=== PATIENT | male | born 1945 | race Caucasian/White ===

== ENCOUNTER 2017-11-02 15:10 | Inpatient (IN) | payer MEDICARE, BC ==
[~2017-11-02] VITALS: Ht 177.8 cm; Wt 104.8 kg
[~2017-11-02 15:10] MED LIST: ARIP10 PO; ATOR40TA PO; CEPH500 PO; GLIM4 PO; HYDACE5 PO; Janumet 50-1,01 EACH PO; LISI20 PO; Lasix40 MG PO; MAGNESIUM400 MG PO; MELO7.5 PO; METO50 PO; NIFE90ER PO; POTCHL20ER PO; SERT100 PO; TRIHYD253B PO; XARELTO20 MG PO
[2017-11-02 15:59] LABS: BASOPHILS ABSOLUTE AUTO 0.07 K/mm3 (0.00-0.23); BASOPHILS PERCENT AUTO 1 % (0-2); EOSINOPHILS ABSOLUTE AUTO 0.12 K/mm3 (0.00-0.68); EOSINOPHILS PERCENT AUTO 1 % (0-6); Hematocrit 40.1 % (37.0-53.0); Hemoglobin 12.9 g/dL (13.5-17.5); IMMATURE GRAN ABSOLUTE AUTO 0.02 K/mm3 (0.00-0.10); IMMATURE GRAN PERCENT AUTO 0 % (0-1); LYMPHOCYTES ABSOLUTE AUTO 1.04 K/mm3 (0.84-5.20); LYMPHOCYTES PERCENT AUTO 12 % (21-46); MONOCYTES ABSOLUTE AUTO 0.56 K/mm3 (0.16-1.47); MONOCYTES PERCENT AUTO 6 % (4-13); Mean Corpuscular HGB 29.3 pg (26.0-34.0); Mean Corpuscular HGB Conc 32.2 g/dL (31.5-36.5); Mean Corpuscular Volume 91 fL (80-100); NEUTROPHILS ABSOLUTE AUTO 7.12 K/mm3 (1.96-9.15); NEUTROPHILS PERCENT AUTO 80 % (41-73); Platelet Count 327 K/mm3 (150-400); RDW Coefficient Variation 14.4 % (11.7-14.2); RDW Standard Deviation 47.9 fL (35.1-46.3); White Blood Cell Count 8.93 K/mm3 (4.00-11.30)
[2017-11-02 16:20] LABS: Alanine Aminotransfer (ALT/SGP 44 U/L (12-78); Albumin, Blood 3.3 g/dL (3.4-5.0); Albumin/Globulin Ratio 0.8 (0.8-1.8); Alk Phos 128 U/L (50-136); Anion Gap 10 mmol/L (6-16); Aspartate Aminotrans (AST/SGOT 35 U/L (12-37); Bilirubin, Total 0.6 mg/dL (0.1-1.0); Blood Urea Nitrogen 18 mg/dL (8-24); Bun/Creatinine Ratio 16.4 (12.0-20.0); CO2, Blood 26 mmol/L (21-32); Calcium, Blood 8.6 mg/dL (8.5-10.1); Chloride, Blood 102 mmol/L (98-108); Globulin, Blood 4.3 g/dL (2.2-4.0); Glomerular Filtration Rate >60 (60-); Glucose, Blood 171 mg/dL (70-99); Potassium, Blood 3.4 mmol/L (3.5-5.5); Sodium, Blood 138 mmol/L (136-145); Total Protein, Blood 7.6 g/dL (6.4-8.2); Troponin I 0.027 ng/mL (0.000-0.040)
[2017-11-03 00:56] LABS: Troponin I 0.031 ng/mL (0.000-0.040)
[2017-11-03 01:19] LABS: CPK Creatine Kinase 38 U/L (39-308); Creatine Kinase MB <0.5 ng/mL (0.0-3.6); Creatine Kinase MB Index Unable to Calculate (0.0-4.0); Thyroid Stimulating Hormone 0.949 uIU/mL (0.360-4.800)
[2017-11-03 06:55] LABS: BASOPHILS ABSOLUTE AUTO 0.09 K/mm3 (0.00-0.23); BASOPHILS PERCENT AUTO 1 % (0-2); EOSINOPHILS ABSOLUTE AUTO 0.16 K/mm3 (0.00-0.68); EOSINOPHILS PERCENT AUTO 2 % (0-6); Hematocrit 37.2 % (37.0-53.0); Hemoglobin 11.9 g/dL (13.5-17.5); IMMATURE GRAN ABSOLUTE AUTO 0.02 K/mm3 (0.00-0.10); IMMATURE GRAN PERCENT AUTO 0 % (0-1); LYMPHOCYTES ABSOLUTE AUTO 1.11 K/mm3 (0.84-5.20); LYMPHOCYTES PERCENT AUTO 15 % (21-46); MONOCYTES ABSOLUTE AUTO 0.64 K/mm3 (0.16-1.47); MONOCYTES PERCENT AUTO 9 % (4-13); Mean Corpuscular HGB 29.5 pg (26.0-34.0); Mean Corpuscular Volume 92 fL (80-100); Mean Platelet Volume 10.9 fL (9.1-12.4); NEUTROPHILS ABSOLUTE AUTO 5.35 K/mm3 (1.96-9.15); NEUTROPHILS PERCENT AUTO 73 % (41-73); Platelet Count 297 K/mm3 (150-400); RDW Coefficient Variation 14.6 % (11.7-14.2); RDW Standard Deviation 49.2 fL (35.1-46.3); Red Blood Cell Count 4.03 M/mm3 (4.30-5.90); White Blood Cell Count 7.37 K/mm3 (4.00-11.30)
[2017-11-03 07:08] LABS: Albumin, Blood 3.1 g/dL (3.4-5.0); Anion Gap 8 mmol/L (6-16); Blood Urea Nitrogen 14 mg/dL (8-24); Bun/Creatinine Ratio 17.9 (12.0-20.0); CO2, Blood 27 mmol/L (21-32); Calcium, Blood 8.2 mg/dL (8.5-10.1); Chloride, Blood 107 mmol/L (98-108); Creatinine, Blood 0.78 mg/dL (0.60-1.20); Glomerular Filtration Rate >60 (60-); Glucose, Blood 119 mg/dL (70-99); Magnesium, Blood 1.9 mg/dL (1.6-2.4); Phosphorus, Blood 3.3 mg/dL (2.5-4.9); Potassium, Blood 3.3 mmol/L (3.5-5.5); Sodium, Blood 142 mmol/L (136-145)
[2017-11-03 07:13] LABS: CPK Creatine Kinase 35 U/L (39-308); Troponin I 0.028 ng/mL (0.000-0.040)
[2017-11-03 07:23] LABS: Creatine Kinase MB <0.5 ng/mL (0.0-3.6); Creatine Kinase MB Index Unable to Calculate (0.0-4.0)
[2017-11-04 05:25] LABS: Anion Gap 9 mmol/L (6-16); Blood Urea Nitrogen 14 mg/dL (8-24); Bun/Creatinine Ratio 17.3 (12.0-20.0); CO2, Blood 27 mmol/L (21-32); Calcium, Blood 8.4 mg/dL (8.5-10.1); Chloride, Blood 107 mmol/L (98-108); Creatinine, Blood 0.81 mg/dL (0.60-1.20); Glomerular Filtration Rate >60 (60-); Glucose, Blood 109 mg/dL (70-99); Potassium, Blood 3.4 mmol/L (3.5-5.5); Sodium, Blood 143 mmol/L (136-145)
[2017-11-05 06:25] LABS: Anion Gap 9 mmol/L (6-16); Blood Urea Nitrogen 18 mg/dL (8-24); Bun/Creatinine Ratio 21.1 (12.0-20.0); CO2, Blood 25 mmol/L (21-32); Calcium, Blood 8.6 mg/dL (8.5-10.1); Chloride, Blood 108 mmol/L (98-108); Creatinine, Blood 0.85 mg/dL (0.60-1.20); Glomerular Filtration Rate >60 (60-); Glucose, Blood 105 mg/dL (70-99); Potassium, Blood 3.5 mmol/L (3.5-5.5); Sodium, Blood 142 mmol/L (136-145)
[2017-11-05] MEDS ORDERED: DILT180ER PO (11:13)
[2017-11-05] MEDS ORDERED: DILT30 PO (11:14)
[2017-11-05] MEDS ORDERED: DILT180 PO (11:14)
[2018-08-11] MEDS ORDERED: GLIM4 PO (23:55)
[2018-08-11] MEDS ORDERED: PROC5 PO (23:56)
[2018-08-11] MEDS ORDERED: Abilify2 MG (23:57)
[2018-08-11] MEDS ORDERED: SPIR50 PO (23:58)
[2018-08-11] MEDS ORDERED: INSULANPEN (23:59)
== END 2017-11-05 13:24 | disposition home or self-care (01) | DRG 310 ==
LOC: ER 15:10 → ERHOLD 19:01 → ICUE 19:01 → MEDS 22:35 → ICUE 22:37 → MEDS 11-03 16:05 → ENPENDDIS 11-05 10:14 → MEDS 11-05 13:24
PROVIDERS: Emergency Medicine; Internal Medicine
DX: I48.0 Paroxysmal atrial fibrillation (principal); E11.9 Type 2 diabetes mellitus without complications; I10 Essential (primary) hypertension; F32.9 Major depressive disorder, single episode, unspecified; E78.5 Hyperlipidemia, unspecified; G47.33 Obstructive sleep apnea (adult) (pediatric); Z66 Do not resuscitate; E66.9 Obesity, unspecified; Z68.33 Body mass index [BMI] 33.0-33.9, adult; R60.9 Edema, unspecified; Z99.89 Dependence on other enabling machines and devices; Z79.01 Long term (current) use of anticoagulants; Z79.84 Long term (current) use of oral hypoglycemic drugs; Z79.899 Other long term (current) drug therapy; Z86.73 Personal history of transient ischemic attack (TIA), and cerebral infarction without residual deficits; Z87.891 Personal history of nicotine dependence
CPT/HCPCS: 36415; 71046; 80048; 80053; 80069; 82550; 82553; 82947; 83735; 84443; 84484; 85025; 93005; 93010; 93308; 93321; 96365; 96366; 96376; 99285

== ENCOUNTER → 2017-12-22 | Outpatient (CLI) | payer MEDICARE, BC ==
[~2017-12-22] MED LIST changes: +AMLO10 PO; +ASPI81CH PO; +ATEN50 PO; +Abilify2 MG; +Abilify5 MG PO; +Acetaminophen325 M1 PO; +Amiodarone HCl200 MG; +BUPR100ER PO; +BUPR75 PO; +CLON.3 PO; +CLON.3TP TOP; +CLON.5 PO; +Cardizem CD 24240 MG PO; +DILT120ERA PO; +DILT180 PO; +DILT180ER PO; +DILT30 PO; +DOCU100 PO; +ERGO400 PO; +FINA5 PO; +FURO20 PO; +HYDRA25 PO; +INSULANPEN; +JOINT HEALTH T1 EACH PO; +Janumet 50-1,01 EACH; +MAGOXI400; +MECL12.5 PO; +METO50ER PO; +Melatonin5 M1 PO; +Metformin HCl500 MG PO; +Milk Of Ma400 MG/5 M PO; +OMEPRAZOLE MAGN20 MG PO; +ONDA4 MM; +ONDA4ODT SL; +POTA20PAC; +POTCHL10ER PO; +PROC5 PO; +SCOPOLAMINE1 EACH TD; +SENN187 PO; +SERT50 PO; +SPIR50 PO; +TAMS.4ER PO; +TOCO1000 PO; +TORSE20 PO; +VENL150ER PO
== END | disposition home or self-care (01) ==
LOC: PLD 08:16 → LAB SHORT 08:16
DX: D48.5 Neoplasm of uncertain behavior of skin (principal)
CPT/HCPCS: 88305; 88312

== ENCOUNTER 2018-01-06 13:03 | Inpatient (IN) | payer MEDICARE, BC ==
[~2018-01-06] VITALS: Ht 180.3 cm; Wt 103.0 kg
[~2018-01-06 13:03] MED LIST changes: -AMLO10 PO; -ASPI81CH PO; -ATEN50 PO; -Abilify2 MG; -Abilify5 MG PO; -Acetaminophen325 M1 PO; -Amiodarone HCl200 MG; -BUPR100ER PO; -BUPR75 PO; -CLON.3 PO; -CLON.3TP TOP; -CLON.5 PO; -Cardizem CD 24240 MG PO; -DILT120ERA PO; -DOCU100 PO; -ERGO400 PO; -FINA5 PO; -FURO20 PO; -HYDRA25 PO; -INSULANPEN; -JOINT HEALTH T1 EACH PO; -Janumet 50-1,01 EACH; -MAGOXI400; -MECL12.5 PO; -METO50ER PO; -Melatonin5 M1 PO; -Metformin HCl500 MG PO; -Milk Of Ma400 MG/5 M PO; -OMEPRAZOLE MAGN20 MG PO; -ONDA4 MM; -ONDA4ODT SL; -POTA20PAC; -POTCHL10ER PO; -PROC5 PO; -SCOPOLAMINE1 EACH TD; -SENN187 PO; -SERT50 PO; -SPIR50 PO; -TAMS.4ER PO; -TOCO1000 PO; -TORSE20 PO; -VENL150ER PO
[2018-01-06 13:44] LABS: BASOPHILS ABSOLUTE AUTO 0.07 K/mm3 (0.00-0.23); BASOPHILS PERCENT AUTO 1 % (0-2); EOSINOPHILS ABSOLUTE AUTO 0.16 K/mm3 (0.00-0.68); EOSINOPHILS PERCENT AUTO 2 % (0-6); Hematocrit 37.1 % (37.0-53.0); Hemoglobin 11.6 g/dL (13.5-17.5); IMMATURE GRAN ABSOLUTE AUTO 0.03 K/mm3 (0.00-0.10); IMMATURE GRAN PERCENT AUTO 0 % (0-1); LYMPHOCYTES ABSOLUTE AUTO 0.65 K/mm3 (0.84-5.20); LYMPHOCYTES PERCENT AUTO 9 % (21-46); MONOCYTES ABSOLUTE AUTO 0.54 K/mm3 (0.16-1.47); MONOCYTES PERCENT AUTO 7 % (4-13); Mean Corpuscular HGB 28.6 pg (26.0-34.0); Mean Corpuscular HGB Conc 31.3 g/dL (31.5-36.5); Mean Corpuscular Volume 91 fL (80-100); NEUTROPHILS ABSOLUTE AUTO 6.04 K/mm3 (1.96-9.15); NEUTROPHILS PERCENT AUTO 81 % (41-73); Platelet Count 257 K/mm3 (150-400); RDW Coefficient Variation 15.3 % (11.7-14.2); RDW Standard Deviation 50.6 fL (35.1-46.3); Red Blood Cell Count 4.06 M/mm3 (4.30-5.90); White Blood Cell Count 7.49 K/mm3 (4.00-11.30)
[2018-01-06 13:55] LABS: Alanine Aminotransfer (ALT/SGP 56 U/L (12-78); Albumin, Blood 3.3 g/dL (3.4-5.0); Albumin/Globulin Ratio 0.7 (0.8-1.8); Alk Phos 107 U/L (50-136); Anion Gap 12 mmol/L (6-16); Aspartate Aminotrans (AST/SGOT 36 U/L (12-37); Bilirubin, Total 0.8 mg/dL (0.1-1.0); Blood Urea Nitrogen 21 mg/dL (8-24); Bun/Creatinine Ratio 20.4 (12.0-20.0); CO2, Blood 25 mmol/L (21-32); Calcium, Blood 9.1 mg/dL (8.5-10.1); Chloride, Blood 104 mmol/L (98-108); Creatinine, Blood 1.03 mg/dL (0.60-1.20); Globulin, Blood 4.7 g/dL (2.2-4.0); Glomerular Filtration Rate >60 (60-); Glucose, Blood 200 mg/dL (70-99); Potassium, Blood 3.6 mmol/L (3.5-5.5); Sodium, Blood 141 mmol/L (136-145)
[2018-01-06] MEDS ORDERED: TOCO1000 PO (14:00)
[2018-01-06] MEDS ORDERED: OMEPRAZOLE MAGN20 MG PO (14:00)
[2018-01-06] MEDS ORDERED: Cardizem CD 24240 MG PO (14:00)
[2018-01-06] MEDS ORDERED: ERGO400 PO (14:00)
[2018-01-06] MEDS ORDERED: TORSE20 PO (14:01)
[2018-01-06] MEDS ORDERED: Abilify5 MG PO (14:01)
[2018-01-06 14:29] LABS: Troponin I <0.015 ng/mL (0.000-0.040)
[2018-01-06] MEDS ORDERED: JOINT HEALTH T1 EACH PO (17:01)
[2018-01-07 04:32] LABS: Anion Gap 8 mmol/L (6-16); Blood Urea Nitrogen 16 mg/dL (8-24); Bun/Creatinine Ratio 17.9 (12.0-20.0); CO2, Blood 28 mmol/L (21-32); Calcium, Blood 8.4 mg/dL (8.5-10.1); Chloride, Blood 103 mmol/L (98-108); Creatinine, Blood 0.89 mg/dL (0.60-1.20); Glomerular Filtration Rate >60 (60-); Glucose, Blood 84 mg/dL (70-99); Sodium, Blood 139 mmol/L (136-145)
[2018-01-08 04:38] LABS: Anion Gap 8 mmol/L (6-16); Blood Urea Nitrogen 16 mg/dL (8-24); Bun/Creatinine Ratio 18.3 (12.0-20.0); CO2, Blood 29 mmol/L (21-32); Calcium, Blood 8.5 mg/dL (8.5-10.1); Chloride, Blood 103 mmol/L (98-108); Creatinine, Blood 0.87 mg/dL (0.60-1.20); Glomerular Filtration Rate >60 (60-); Glucose, Blood 80 mg/dL (70-99); Magnesium, Blood 2.1 mg/dL (1.6-2.4); Potassium, Blood 3.2 mmol/L (3.5-5.5); Sodium, Blood 140 mmol/L (136-145)
[2018-01-08] MEDS ORDERED: METO50 PO (09:33)
[2018-08-11] MEDS ORDERED: GLIM4 PO (23:55)
[2018-08-11] MEDS ORDERED: PROC5 PO (23:56)
[2018-08-11] MEDS ORDERED: Abilify2 MG (23:57)
[2018-08-11] MEDS ORDERED: SPIR50 PO (23:58)
[2018-08-11] MEDS ORDERED: INSULANPEN (23:59)
== END 2018-01-08 09:51 | disposition home or self-care (01) | DRG 308 ==
LOC: ER 13:03 → PCU 15:12
PROVIDERS: Emergency Medicine; Hospitalist
DX: I48.91 Unspecified atrial fibrillation (principal); I50.23 Acute on chronic systolic (congestive) heart failure; I11.0 Hypertensive heart disease with heart failure; E11.9 Type 2 diabetes mellitus without complications; Z79.01 Long term (current) use of anticoagulants; F41.8 Other specified anxiety disorders; E78.5 Hyperlipidemia, unspecified
CPT/HCPCS: 36415; 71046; 80048; 80053; 82947; 83735; 83880; 84484; 85025; 93005; 93010; 94762; 96365; 96375; 96376; 99285; A9270; J1940

== ENCOUNTER 2018-01-27 17:06 | Emergency (ER) | payer MEDICARE, BC ==
[~2018-01-27] VITALS: Ht 177.8 cm; Wt 95.2 kg
[~2018-01-27 17:06] MED LIST changes: +Abilify5 MG PO; +Cardizem CD 24240 MG PO; +ERGO400 PO; +JOINT HEALTH T1 EACH PO; +OMEPRAZOLE MAGN20 MG PO; +TOCO1000 PO; +TORSE20 PO; +XARELTO15 MG PO; -XARELTO20 MG PO
[2018-01-27 18:04] LABS: Alanine Aminotransfer (ALT/SGP 26 U/L (12-78); Albumin, Blood 3.2 g/dL (3.4-5.0); Albumin/Globulin Ratio 0.7 (0.8-1.8); Alk Phos 95 U/L (50-136); Anion Gap 14 mmol/L (6-16); Aspartate Aminotrans (AST/SGOT 20 U/L (12-37); Bilirubin, Total 0.4 mg/dL (0.1-1.0); Blood Urea Nitrogen 20 mg/dL (8-24); Bun/Creatinine Ratio 21.6 (12.0-20.0); CO2, Blood 23 mmol/L (21-32); Calcium, Blood 8.5 mg/dL (8.5-10.1); Chloride, Blood 104 mmol/L (98-108); Creatinine, Blood 0.92 mg/dL (0.60-1.20); Globulin, Blood 4.7 g/dL (2.2-4.0); Glomerular Filtration Rate >60 (60-); Glucose, Blood 259 mg/dL (70-99); Potassium, Blood 3.5 mmol/L (3.5-5.5); Sodium, Blood 141 mmol/L (136-145); Total Protein, Blood 7.9 g/dL (6.4-8.2); Troponin I <0.015 ng/mL (0.000-0.040)
[2018-01-27] MEDS ORDERED: FURO20 PO (19:50)
[2018-01-27] MEDS ORDERED: ATEN50 PO (19:52)
== END 2018-01-27 23:28 | disposition home or self-care (01) ==
LOC: ER 17:06
PROVIDERS: Emergency Medicine
DX: I48.92 Unspecified atrial flutter (principal); Z91.048 Other nonmedicinal substance allergy status; Z79.899 Other long term (current) drug therapy; E11.9 Type 2 diabetes mellitus without complications; I48.91 Unspecified atrial fibrillation; Z86.73 Personal history of transient ischemic attack (TIA), and cerebral infarction without residual deficits; Z87.891 Personal history of nicotine dependence
CPT/HCPCS: 36415; 71046; 80053; 83880; 84484; 93005; 93010; 96365; 96366; 99283; J2001; J3480

== ENCOUNTER 2018-04-24 11:47 | Inpatient (IN) | payer MEDICARE, BC ==
[~2018-04-24] VITALS: Ht 180.3 cm; Wt 84.8 kg
[~2018-04-24 11:47] MED LIST changes: +ATEN50 PO; +FURO20 PO; -XARELTO15 MG PO; +XARELTO20 MG PO
[2018-04-24 12:34] LABS: BASOPHILS PERCENT AUTO 1 % (0-2); EOSINOPHILS ABSOLUTE AUTO 0.15 K/mm3 (0.00-0.68); EOSINOPHILS PERCENT AUTO 1 % (0-6); Hematocrit 36.2 % (37.0-53.0); Hemoglobin 11.4 g/dL (13.5-17.5); IMMATURE GRAN ABSOLUTE AUTO 0.04 K/mm3 (0.00-0.10); IMMATURE GRAN PERCENT AUTO 0 % (0-1); LYMPHOCYTES ABSOLUTE AUTO 0.47 K/mm3 (0.84-5.20); LYMPHOCYTES PERCENT AUTO 5 % (21-46); MONOCYTES ABSOLUTE AUTO 0.47 K/mm3 (0.16-1.47); MONOCYTES PERCENT AUTO 5 % (4-13); Mean Corpuscular HGB 28.2 pg (26.0-34.0); Mean Corpuscular HGB Conc 31.5 g/dL (31.5-36.5); Mean Corpuscular Volume 90 fL (80-100); Mean Platelet Volume 11.7 fL (9.1-12.4); NEUTROPHILS ABSOLUTE AUTO 9.24 K/mm3 (1.96-9.15); NEUTROPHILS PERCENT AUTO 88 % (41-73); Platelet Count 289 K/mm3 (150-400); RDW Coefficient Variation 15.9 % (11.7-14.2); RDW Standard Deviation 52.2 fL (35.1-46.3); Red Blood Cell Count 4.04 M/mm3 (4.30-5.90); White Blood Cell Count 10.47 K/mm3 (4.00-11.30)
[2018-04-24 12:47] LABS: Alanine Aminotransfer (ALT/SGP 82 U/L (12-78); Albumin, Blood 3.4 g/dL (3.4-5.0); Albumin/Globulin Ratio 0.8 (0.8-1.8); Alk Phos 110 U/L (50-136); Anion Gap 10 mmol/L (6-16); Aspartate Aminotrans (AST/SGOT 49 U/L (12-37); Bilirubin, Total 1.3 mg/dL (0.1-1.0); Blood Urea Nitrogen 19 mg/dL (8-24); Bun/Creatinine Ratio 16.2 (12.0-20.0); CO2, Blood 27 mmol/L (21-32); Calcium, Blood 8.5 mg/dL (8.5-10.1); Chloride, Blood 106 mmol/L (98-108); Creatinine, Blood 1.17 mg/dL (0.60-1.20); Globulin, Blood 4.4 g/dL (2.2-4.0); Glomerular Filtration Rate >60 (60-); Glucose, Blood 207 mg/dL (70-99); Potassium, Blood 3.7 mmol/L (3.5-5.5); Sodium, Blood 143 mmol/L (136-145); Total Protein, Blood 7.8 g/dL (6.4-8.2); Troponin I 0.041 ng/mL (0.000-0.040)
[2018-04-24] MEDS ORDERED: BUPR75 PO (13:12)
[2018-04-24] MEDS ORDERED: POTCHL10ER PO (13:13)
[2018-04-24] MEDS ORDERED: SERT50 PO (13:13)
[2018-04-24] MEDS ORDERED: MAGOXI400 (13:13)
[2018-04-24] MEDS ORDERED: POTA20PAC (13:13)
[2018-04-24] MEDS ORDERED: Amiodarone HCl200 MG (13:14)
[2018-04-25 01:35] LABS: Anion Gap 12 mmol/L (6-16); Blood Urea Nitrogen 20 mg/dL (8-24); Bun/Creatinine Ratio 18.5 (12.0-20.0); CO2, Blood 27 mmol/L (21-32); Calcium, Blood 8.8 mg/dL (8.5-10.1); Chloride, Blood 102 mmol/L (98-108); Creatinine, Blood 1.08 mg/dL (0.60-1.20); Glomerular Filtration Rate >60 (60-); Glucose, Blood 164 mg/dL (70-99); Potassium, Blood 3.3 mmol/L (3.5-5.5); Sodium, Blood 141 mmol/L (136-145)
[2018-04-25 10:13] LABS: Influenza A Negative (NEGATIVE); Influenza B Negative (NEGATIVE)
[2018-04-25 15:36] LABS: CHOL/HDL RATIO 5.1; Cholesterol 177 mg/dL (50-200); HDL Cholesterol 35 mg/dL (>39); LDL/HDL RATIO 3.5; Low Density Lipoprotein Chol 123 mg/dL (0-110); Triglycerides 96 mg/dL (30-160); Very Low Density Lipoprot Chol 19 mg/dL (6-32)
[2018-04-26 04:12] LABS: Magnesium, Blood 2.1 mg/dL (1.6-2.4)
[2018-04-26 04:13] LABS: Anion Gap 12 mmol/L (6-16); Blood Urea Nitrogen 17 mg/dL (8-24); Bun/Creatinine Ratio 17.9 (12.0-20.0); CO2, Blood 26 mmol/L (21-32); Chloride, Blood 101 mmol/L (98-108); Creatinine, Blood 0.95 mg/dL (0.60-1.20); Glomerular Filtration Rate >60 (60-); Glucose, Blood 175 mg/dL (70-99); Potassium, Blood 3.4 mmol/L (3.5-5.5); Sodium, Blood 139 mmol/L (136-145)
[2018-04-27 04:44] LABS: Anion Gap 11 mmol/L (6-16); Blood Urea Nitrogen 20 mg/dL (8-24); Bun/Creatinine Ratio 20.7 (12.0-20.0); CO2, Blood 27 mmol/L (21-32); Calcium, Blood 9.1 mg/dL (8.5-10.1); Chloride, Blood 101 mmol/L (98-108); Creatinine, Blood 0.97 mg/dL (0.60-1.20); Glomerular Filtration Rate >60 (60-); Glucose, Blood 177 mg/dL (70-99); Potassium, Blood 3.3 mmol/L (3.5-5.5); Sodium, Blood 139 mmol/L (136-145)
[2018-04-28 09:02] LABS: Anion Gap 11 mmol/L (6-16); Blood Urea Nitrogen 28 mg/dL (8-24); Bun/Creatinine Ratio 25.5 (12.0-20.0); CO2, Blood 28 mmol/L (21-32); Calcium, Blood 10.1 mg/dL (8.5-10.1); Chloride, Blood 99 mmol/L (98-108); Glomerular Filtration Rate >60 (60-); Glucose, Blood 186 mg/dL (70-99); Potassium, Blood 3.8 mmol/L (3.5-5.5); Sodium, Blood 138 mmol/L (136-145)
[2018-04-30 05:43] LABS: Anion Gap 8 mmol/L (6-16); Blood Urea Nitrogen 26 mg/dL (8-24); Bun/Creatinine Ratio 21.1 (12.0-20.0); CO2, Blood 28 mmol/L (21-32); Calcium, Blood 8.8 mg/dL (8.5-10.1); Chloride, Blood 102 mmol/L (98-108); Creatinine, Blood 1.23 mg/dL (0.60-1.20); Glomerular Filtration Rate >60 (60-); Glucose, Blood 183 mg/dL (70-99); Magnesium, Blood 1.9 mg/dL (1.6-2.4); Potassium, Blood 3.6 mmol/L (3.5-5.5); Sodium, Blood 138 mmol/L (136-145)
[2018-05-01 05:04] LABS: BASOPHILS ABSOLUTE AUTO 0.09 K/mm3 (0.00-0.23); BASOPHILS PERCENT AUTO 1 % (0-2); EOSINOPHILS ABSOLUTE AUTO 0.23 K/mm3 (0.00-0.68); EOSINOPHILS PERCENT AUTO 3 % (0-6); Hematocrit 37.7 % (37.0-53.0); IMMATURE GRAN ABSOLUTE AUTO 0.05 K/mm3 (0.00-0.10); IMMATURE GRAN PERCENT AUTO 1 % (0-1); LYMPHOCYTES ABSOLUTE AUTO 0.98 K/mm3 (0.84-5.20); LYMPHOCYTES PERCENT AUTO 11 % (21-46); MONOCYTES ABSOLUTE AUTO 0.76 K/mm3 (0.16-1.47); MONOCYTES PERCENT AUTO 8 % (4-13); Mean Corpuscular HGB 27.5 pg (26.0-34.0); Mean Corpuscular HGB Conc 31.8 g/dL (31.5-36.5); Mean Platelet Volume 12.1 fL (9.1-12.4); NEUTROPHILS ABSOLUTE AUTO 7.24 K/mm3 (1.96-9.15); NEUTROPHILS PERCENT AUTO 77 % (41-73); Platelet Count 290 K/mm3 (150-400); RDW Coefficient Variation 15.5 % (11.7-14.2); RDW Standard Deviation 49.1 fL (35.1-46.3); Red Blood Cell Count 4.37 M/mm3 (4.30-5.90); White Blood Cell Count 9.35 K/mm3 (4.00-11.30)
[2018-05-01 05:06] LABS: Mean Corpuscular Volume 86 fL (80-100)
[2018-05-01 05:25] LABS: Anion Gap 10 mmol/L (6-16); Blood Urea Nitrogen 28 mg/dL (8-24); Bun/Creatinine Ratio 23.1 (12.0-20.0); CO2, Blood 27 mmol/L (21-32); Calcium, Blood 8.9 mg/dL (8.5-10.1); Chloride, Blood 99 mmol/L (98-108); Creatinine, Blood 1.21 mg/dL (0.60-1.20); Glomerular Filtration Rate >60 (60-); Glucose, Blood 183 mg/dL (70-99); Potassium, Blood 3.3 mmol/L (3.5-5.5); Sodium, Blood 136 mmol/L (136-145)
[2018-05-02 05:37] LABS: Anion Gap 11 mmol/L (6-16); Blood Urea Nitrogen 26 mg/dL (8-24); Bun/Creatinine Ratio 22.2 (12.0-20.0); CO2, Blood 27 mmol/L (21-32); Calcium, Blood 8.7 mg/dL (8.5-10.1); Chloride, Blood 100 mmol/L (98-108); Creatinine, Blood 1.17 mg/dL (0.60-1.20); Glomerular Filtration Rate >60 (60-); Glucose, Blood 181 mg/dL (70-99); Phosphorus, Blood 4.1 mg/dL (2.5-4.9); Potassium, Blood 3.3 mmol/L (3.5-5.5); Sodium, Blood 138 mmol/L (136-145)
[2018-05-03 04:37] LABS: BASOPHILS ABSOLUTE AUTO 0.07 K/mm3 (0.00-0.23); BASOPHILS PERCENT AUTO 1 % (0-2); EOSINOPHILS ABSOLUTE AUTO 0.08 K/mm3 (0.00-0.68); EOSINOPHILS PERCENT AUTO 1 % (0-6); Hematocrit 42.4 % (37.0-53.0); Hemoglobin 13.7 g/dL (13.5-17.5); IMMATURE GRAN ABSOLUTE AUTO 0.05 K/mm3 (0.00-0.10); IMMATURE GRAN PERCENT AUTO 1 % (0-1); LYMPHOCYTES PERCENT AUTO 8 % (21-46); MONOCYTES ABSOLUTE AUTO 0.89 K/mm3 (0.16-1.47); MONOCYTES PERCENT AUTO 9 % (4-13); Mean Corpuscular HGB 27.3 pg (26.0-34.0); Mean Corpuscular HGB Conc 32.3 g/dL (31.5-36.5); Mean Corpuscular Volume 85 fL (80-100); Mean Platelet Volume 11.6 fL (9.1-12.4); NEUTROPHILS ABSOLUTE AUTO 8.58 K/mm3 (1.96-9.15); NEUTROPHILS PERCENT AUTO 82 % (41-73); Platelet Count 355 K/mm3 (150-400); RDW Coefficient Variation 15.3 % (11.7-14.2); RDW Standard Deviation 47.6 fL (35.1-46.3); Red Blood Cell Count 5.01 M/mm3 (4.30-5.90); White Blood Cell Count 10.47 K/mm3 (4.00-11.30)
[2018-05-03 04:56] LABS: Albumin, Blood 3.4 g/dL (3.4-5.0); Anion Gap 12 mmol/L (6-16); Blood Urea Nitrogen 27 mg/dL (8-24); Bun/Creatinine Ratio 25.2 (12.0-20.0); CO2, Blood 27 mmol/L (21-32); Calcium, Blood 9.1 mg/dL (8.5-10.1); Chloride, Blood 100 mmol/L (98-108); Creatinine, Blood 1.07 mg/dL (0.60-1.20); Glomerular Filtration Rate >60 (60-); Glucose, Blood 180 mg/dL (70-99); Phosphorus, Blood 3.5 mg/dL (2.5-4.9); Potassium, Blood 3.3 mmol/L (3.5-5.5); Sodium, Blood 139 mmol/L (136-145)
[2018-05-04 05:49] LABS: Albumin, Blood 3.2 g/dL (3.4-5.0); Anion Gap 11 mmol/L (6-16); Blood Urea Nitrogen 32 mg/dL (8-24); Bun/Creatinine Ratio 26.7 (12.0-20.0); CO2, Blood 27 mmol/L (21-32); Calcium, Blood 9.4 mg/dL (8.5-10.1); Chloride, Blood 100 mmol/L (98-108); Glomerular Filtration Rate >60 (60-); Glucose, Blood 181 mg/dL (70-99); Phosphorus, Blood 4.1 mg/dL (2.5-4.9); Potassium, Blood 3.4 mmol/L (3.5-5.5); Sodium, Blood 138 mmol/L (136-145)
[2018-05-04] MEDS ORDERED: METO50ER PO (16:27)
[2018-05-04] MEDS ORDERED: AMLO10 PO (16:30)
[2018-05-04] MEDS ORDERED: Acetaminophen325 M1 PO (16:30)
[2018-05-04] MEDS ORDERED: DOCU100 PO (16:31)
[2018-05-04] MEDS ORDERED: Melatonin5 M1 PO (16:31)
[2018-05-04] MEDS ORDERED: CLON.3 PO (16:31)
[2018-05-04] MEDS ORDERED: ONDA4 MM (16:32)
[2018-05-04] MEDS ORDERED: SENN187 PO (16:32)
== END 2018-05-04 16:19 | DRG 65 ==
LOC: ER 11:47 → PCU 15:52 → MEDS 04-28 11:50 → ENPENDDIS 05-04 11:00 → MEDS 05-04 16:19
PROVIDERS: Internal Medicine
DX: I63.532 Cerebral infarction due to unspecified occlusion or stenosis of left posterior cerebral artery (principal); I48.92 Unspecified atrial flutter; I13.0 Hypertensive heart and chronic kidney disease with heart failure and stage 1 through stage 4 chronic kidney disease, or unspecified chronic kidney disease; I50.32 Chronic diastolic (congestive) heart failure; Z87.891 Personal history of nicotine dependence; N18.2 Chronic kidney disease, stage 2 (mild); E11.22 Type 2 diabetes mellitus with diabetic chronic kidney disease; K21.9 Gastro-esophageal reflux disease without esophagitis; E78.5 Hyperlipidemia, unspecified; Z86.73 Personal history of transient ischemic attack (TIA), and cerebral infarction without residual deficits; Z66 Do not resuscitate; I25.10 Atherosclerotic heart disease of native coronary artery without angina pectoris; I48.0 Paroxysmal atrial fibrillation; G47.33 Obstructive sleep apnea (adult) (pediatric); E87.6 Hypokalemia; I65.23 Occlusion and stenosis of bilateral carotid arteries; G47.00 Insomnia, unspecified
CPT/HCPCS: 36415; 36416; 70450; 70496; 70498; 70551; 71046; 74177; 80048; 80053; 80061; 80069; 82947; 83036; 83735; 83880; 84484; 85025; 87804; 92507; 92523; 92610; 93005; 93010; 93306; 94762; 96374; 96376; 97110; 97116; 97162; 97166; 97530; 97535; 99285-25; G0515; G8978; G8979; G8987; G8988; G8996; G8997; G8998; G9165; G9166; J0360; J1940; J2405; Q9967

== ENCOUNTER 2018-05-17 13:59 | Emergency (ER) | payer MEDICARE, BC ==
[~2018-05-17] VITALS: Ht 180.3 cm; Wt 90.7 kg
[~2018-05-17 13:59] MED LIST changes: +AMLO10 PO; +Acetaminophen325 M1 PO; +Amiodarone HCl200 MG; +BUPR75 PO; +CLON.3 PO; +DOCU100 PO; +MAGOXI400; +METO50ER PO; +Melatonin5 M1 PO; +ONDA4 MM; +POTA20PAC; +POTCHL10ER PO; +SENN187 PO; +SERT50 PO
[2018-05-17 14:39] LABS: BASOPHILS ABSOLUTE AUTO 0.06 K/mm3 (0.00-0.23); BASOPHILS PERCENT AUTO 1 % (0-2); EOSINOPHILS PERCENT AUTO 1 % (0-6); Hematocrit 49.4 % (37.0-53.0); Hemoglobin 16.3 g/dL (13.5-17.5); IMMATURE GRAN PERCENT AUTO 1 % (0-1); LYMPHOCYTES ABSOLUTE AUTO 1.04 K/mm3 (0.84-5.20); LYMPHOCYTES PERCENT AUTO 10 % (21-46); MONOCYTES ABSOLUTE AUTO 0.67 K/mm3 (0.16-1.47); MONOCYTES PERCENT AUTO 7 % (4-13); Mean Corpuscular HGB 27.4 pg (26.0-34.0); Mean Corpuscular Volume 83 fL (80-100); NEUTROPHILS ABSOLUTE AUTO 8.33 K/mm3 (1.96-9.15); NEUTROPHILS PERCENT AUTO 81 % (41-73); Platelet Count 263 K/mm3 (150-400); RDW Coefficient Variation 14.7 % (11.7-14.2); RDW Standard Deviation 44.8 fL (35.1-46.3); Red Blood Cell Count 5.94 M/mm3 (4.30-5.90)
[2018-05-17 14:57] LABS: Albumin, Blood 3.6 g/dL (3.4-5.0); Albumin/Globulin Ratio 0.7 (0.8-1.8); Bilirubin, Total 0.7 mg/dL (0.1-1.0); Bun/Creatinine Ratio 19.7 (12.0-20.0); Calcium, Blood 9.6 mg/dL (8.5-10.1); Creatinine, Blood 1.47 mg/dL (0.60-1.20); Globulin, Blood 4.9 g/dL (2.2-4.0); Total Protein, Blood 8.5 g/dL (6.4-8.2)
== END 2018-05-17 20:20 | disposition short-term general hospital (02) ==
LOC: ER 13:59
PROVIDERS: Emergency Medicine
DX: I61.4 Nontraumatic intracerebral hemorrhage in cerebellum (principal); E11.9 Type 2 diabetes mellitus without complications; I48.91 Unspecified atrial fibrillation; Z91.048 Other nonmedicinal substance allergy status; Z79.899 Other long term (current) drug therapy; Z79.84 Long term (current) use of oral hypoglycemic drugs; Z86.73 Personal history of transient ischemic attack (TIA), and cerebral infarction without residual deficits
CPT/HCPCS: 70450; 74018; 80053; 83690; 85025; 93005; 93010; 96374; 96375; 99285-25; J1200; J2405; J2765; J7120

== ENCOUNTER 2018-06-16 09:03 | Inpatient (IN) | payer MEDICARE, BC ==
[~2018-06-16] VITALS: Ht 180.3 cm; Wt 83.5 kg
[2018-06-16] MEDS ORDERED: MECL12.5 PO (10:00)
[2018-06-16] MEDS ORDERED: VENL150ER PO (10:01)
[2018-06-16] MEDS ORDERED: TAMS.4ER PO (10:01)
[2018-06-16] MEDS ORDERED: SCOPOLAMINE1 EACH TD (10:01)
[2018-06-16] MEDS ORDERED: HYDRA25 PO (10:02)
[2018-06-16] MEDS ORDERED: ATOR40TA PO (10:03)
[2018-06-16] MEDS ORDERED: ASPI81CH PO (10:03)
[2018-06-16] MEDS ORDERED: CLON.3TP TOP (10:04)
[2018-06-16] MEDS ORDERED: DILT120ERA PO (10:05)
[2018-06-16 10:23] LABS: BASOPHILS PERCENT AUTO 1 % (0-2); EOSINOPHILS ABSOLUTE AUTO 0.09 K/mm3 (0.00-0.68); EOSINOPHILS PERCENT AUTO 1 % (0-6); Hematocrit 42.4 % (37.0-53.0); Hemoglobin 13.9 g/dL (13.5-17.5); IMMATURE GRAN ABSOLUTE AUTO 0.04 K/mm3 (0.00-0.10); IMMATURE GRAN PERCENT AUTO 0 % (0-1); LYMPHOCYTES ABSOLUTE AUTO 0.73 K/mm3 (0.84-5.20); LYMPHOCYTES PERCENT AUTO 8 % (21-46); MONOCYTES ABSOLUTE AUTO 0.54 K/mm3 (0.16-1.47); MONOCYTES PERCENT AUTO 6 % (4-13); Mean Corpuscular HGB 28.5 pg (26.0-34.0); Mean Corpuscular HGB Conc 32.8 g/dL (31.5-36.5); Mean Corpuscular Volume 87 fL (80-100); Mean Platelet Volume 11.5 fL (9.1-12.4); NEUTROPHILS ABSOLUTE AUTO 7.95 K/mm3 (1.96-9.15); NEUTROPHILS PERCENT AUTO 84 % (41-73); Platelet Count 260 K/mm3 (150-400); RDW Coefficient Variation 15.2 % (11.7-14.2); RDW Standard Deviation 48.7 fL (35.1-46.3); Red Blood Cell Count 4.87 M/mm3 (4.30-5.90); White Blood Cell Count 9.45 K/mm3 (4.00-11.30)
[2018-06-16 10:47] LABS: Alanine Aminotransfer (ALT/SGP 30 U/L (12-78); Albumin, Blood 3.5 g/dL (3.4-5.0); Albumin/Globulin Ratio 0.9 (0.8-1.8); Alk Phos 101 U/L (50-136); Anion Gap 14 mmol/L (6-16); Aspartate Aminotrans (AST/SGOT 20 U/L (12-37); Bilirubin, Total 0.6 mg/dL (0.1-1.0); Blood Urea Nitrogen 15 mg/dL (8-24); CO2, Blood 24 mmol/L (21-32); Calcium, Blood 9.6 mg/dL (8.5-10.1); Chloride, Blood 101 mmol/L (98-108); Creatinine, Blood 1.15 mg/dL (0.60-1.20); Globulin, Blood 4.1 g/dL (2.2-4.0); Glomerular Filtration Rate >60 (60-); Glucose, Blood 212 mg/dL (70-99); Potassium, Blood 3.2 mmol/L (3.5-5.5); Sodium, Blood 139 mmol/L (136-145); Total Protein, Blood 7.6 g/dL (6.4-8.2)
[2018-06-16 12:04] LABS: Source, Urine Clean Catch
[2018-06-16 12:18] LABS: Bilirubin, Urine Neg (Neg); Blood, Urine 3+ (Neg); Glucose Qualitative, Urine Neg (Neg); Ketones, Urine 2+ (Neg); Leukocyte Esterase, Urine 3+ (Neg); Nitrite, Urine Neg (Neg); Protein, Urine 2+ (Neg); Urobilinogen, Urine NORM (Normal)
[2018-06-16 12:37] LABS: Color, Urine Yellow (P-Yellow)
[2018-06-16 12:38] LABS: Appearance, Urine Cloudy (Clear)
[2018-06-16 12:39] LABS: Squamous Epithelial Cells Few /hpf (Few); White Blood Cells, Urine TNTC /hpf (0-5)
[2018-06-16 12:40] LABS: Bacteria Many /hpf
[2018-06-16] MEDS ORDERED: CEPH500 PO (12:53)
[2018-06-17 05:10] LABS: BASOPHILS ABSOLUTE AUTO 0.08 K/mm3 (0.00-0.23); BASOPHILS PERCENT AUTO 1 % (0-2); EOSINOPHILS ABSOLUTE AUTO 0.03 K/mm3 (0.00-0.68); EOSINOPHILS PERCENT AUTO 0 % (0-6); Hematocrit 40.2 % (37.0-53.0); Hemoglobin 13.1 g/dL (13.5-17.5); IMMATURE GRAN ABSOLUTE AUTO 0.02 K/mm3 (0.00-0.10); IMMATURE GRAN PERCENT AUTO 0 % (0-1); LYMPHOCYTES ABSOLUTE AUTO 1.23 K/mm3 (0.84-5.20); LYMPHOCYTES PERCENT AUTO 14 % (21-46); MONOCYTES ABSOLUTE AUTO 0.85 K/mm3 (0.16-1.47); MONOCYTES PERCENT AUTO 9 % (4-13); Mean Corpuscular HGB 28.5 pg (26.0-34.0); Mean Corpuscular HGB Conc 32.6 g/dL (31.5-36.5); Mean Corpuscular Volume 88 fL (80-100); Mean Platelet Volume 11.7 fL (9.1-12.4); NEUTROPHILS ABSOLUTE AUTO 6.82 K/mm3 (1.96-9.15); NEUTROPHILS PERCENT AUTO 76 % (41-73); Platelet Count 241 K/mm3 (150-400); RDW Coefficient Variation 15.9 % (11.7-14.2); RDW Standard Deviation 51.2 fL (35.1-46.3); Red Blood Cell Count 4.59 M/mm3 (4.30-5.90); White Blood Cell Count 9.03 K/mm3 (4.00-11.30)
[2018-06-17 05:56] LABS: Anion Gap 11 mmol/L (6-16); Blood Urea Nitrogen 17 mg/dL (8-24); CO2, Blood 26 mmol/L (21-32); Calcium, Blood 8.6 mg/dL (8.5-10.1); Chloride, Blood 109 mmol/L (98-108); Creatinine, Blood 1.13 mg/dL (0.60-1.20); Glomerular Filtration Rate >60 (60-); Glucose, Blood 110 mg/dL (70-99); Potassium, Blood 2.9 mmol/L (3.5-5.5); Sodium, Blood 146 mmol/L (136-145)
[2018-06-17] MEDS ORDERED: BUPR100ER PO (14:38)
[2018-06-17] MEDS ORDERED: CLON.5 PO (14:39)
[2018-06-17] MEDS ORDERED: Janumet 50-1,01 EACH (14:42)
[2018-06-17] MEDS ORDERED: POTCHL20ER PO (14:44)
[2018-06-18 08:30] LABS: Albumin, Blood 3.2 g/dL (3.4-5.0); Anion Gap 9 mmol/L (6-16); Blood Urea Nitrogen 15 mg/dL (8-24); Bun/Creatinine Ratio 16.3 (12.0-20.0); CO2, Blood 26 mmol/L (21-32); Calcium, Blood 8.8 mg/dL (8.5-10.1); Chloride, Blood 106 mmol/L (98-108); Creatinine, Blood 0.92 mg/dL (0.60-1.20); Glomerular Filtration Rate >60 (60-); Glucose, Blood 104 mg/dL (70-99); Phosphorus, Blood 3.9 mg/dL (2.5-4.9); Potassium, Blood 3.3 mmol/L (3.5-5.5); Sodium, Blood 141 mmol/L (136-145)
[2018-06-18] MEDS ORDERED: Metformin HCl500 MG PO (12:02)
[2018-06-18] MEDS ORDERED: ONDA4ODT SL (12:07)
[2018-06-18] MEDS ORDERED: CEPH500 PO (12:08)
[2018-06-18] MEDS ORDERED: DOCU100 PO (12:12)
[2018-06-18] MEDS ORDERED: FINA5 PO (12:13)
[2018-06-18] MEDS ORDERED: Milk Of Ma400 MG/5 M PO (12:15)
== END 2018-06-18 13:58 | disposition home health service (06) | DRG 71 ==
LOC: ER 09:03 → MEDS 16:21 → ENPENDDIS 06-18 10:47 → MEDS 06-18 13:58
PROVIDERS: Emergency Medicine; Internal Medicine; Internal Medicine Endocrinology, Diabetes & Metabolism
DX: G46.4 Cerebellar stroke syndrome (principal); I50.30 Unspecified diastolic (congestive) heart failure; I13.0 Hypertensive heart and chronic kidney disease with heart failure and stage 1 through stage 4 chronic kidney disease, or unspecified chronic kidney disease; N39.0 Urinary tract infection, site not specified; I48.0 Paroxysmal atrial fibrillation; G47.33 Obstructive sleep apnea (adult) (pediatric); K21.9 Gastro-esophageal reflux disease without esophagitis; E78.5 Hyperlipidemia, unspecified; Z87.891 Personal history of nicotine dependence; Z79.82 Long term (current) use of aspirin; E86.0 Dehydration; R63.8 Other symptoms and signs concerning food and fluid intake; E87.6 Hypokalemia; R33.9 Retention of urine, unspecified; E11.9 Type 2 diabetes mellitus without complications; R11.2 Nausea with vomiting, unspecified
CPT/HCPCS: 36415; 70450; 74018; 80048; 80053; 80069; 81001; 82947; 83690; 83735; 85025; 87077; 87086; 87186; 93005; 93010; 94660; 94762; 96374; 96375; 97116; 97162; 97166; 97530; 99285-25; C9113; G8978; G8979; G8987; G8988; J0360; J0696; J1650; J2405; J2550; J2765; J3480; J7030

== ENCOUNTER → 2018-10-28 | Outpatient (CLI) | payer MEDICARE, BC ==
[~2018-10-28] MED LIST changes: +ASPI81CH PO; +Abilify2 MG; +BUPR100ER PO; +CLON.3TP TOP; +CLON.5 PO; +DILT120ERA PO; +FINA5 PO; +HYDRA25 PO; +INSULANPEN; +Janumet 50-1,01 EACH; +MECL12.5 PO; +Metformin HCl500 MG PO; +Milk Of Ma400 MG/5 M PO; +ONDA4ODT SL; +PROC5 PO; +SCOPOLAMINE1 EACH TD; +SPIR50 PO; +TAMS.4ER PO; +VENL150ER PO
[2018-10-28 13:04] LABS: Appearance, Urine Clear (Clear); Color, Urine Yellow (P-Yellow)
[2018-10-28 13:05] LABS: Bilirubin, Urine Neg (Neg); Blood, Urine 1+ (Neg); Glucose Qualitative, Urine Trace (Normal); Ketones, Urine Neg (Neg); Leukocyte Esterase, Urine Neg (Neg); Nitrite, Urine Neg (Neg); Protein, Urine Neg (Neg); Urobilinogen, Urine NORM (Normal)
[2018-10-28 13:12] LABS: Bacteria Not Seen /hpf; Red Blood Cells, Urine 0-2 /hpf (0-2); Squamous Epithelial Cells Rare /hpf (Few); White Blood Cells, Urine 0-2 /hpf (0-5)
== END | disposition home or self-care (01) ==
LOC: LAB EV 11:30
PROVIDERS: Nurse Practitioner Family
DX: R53.83 Other fatigue (principal)
CPT/HCPCS: 81001

== ENCOUNTER 2018-12-22 07:56 | Inpatient (IN) | payer MEDICARE, BC ==
[~2018-12-22] VITALS: Ht 180.3 cm; Wt 91.1 kg
[~2018-12-22 07:56] MED LIST changes: -DILT120ERA PO; +DILTIAZEM 24HR180 M2 PO; -INSULANPEN; +INSULANPEN SC
[2018-12-22] MEDS ORDERED: HYDRA25 PO (08:36)
[2018-12-22] MEDS ORDERED: ATORVASTATIN CA40 MG PO (08:38)
[2018-12-22 08:47] LABS: BASOPHILS ABSOLUTE AUTO 0.06 K/mm3 (0.00-0.23); BASOPHILS PERCENT AUTO 1 % (0-2); EOSINOPHILS ABSOLUTE AUTO 0.09 K/mm3 (0.00-0.68); EOSINOPHILS PERCENT AUTO 1 % (0-6); Hematocrit 31.3 % (37.0-53.0); Hemoglobin 9.9 g/dL (13.5-17.5); IMMATURE GRAN ABSOLUTE AUTO 0.04 K/mm3 (0.00-0.10); IMMATURE GRAN PERCENT AUTO 0 % (0-1); LYMPHOCYTES ABSOLUTE AUTO 0.92 K/mm3 (0.84-5.20); LYMPHOCYTES PERCENT AUTO 9 % (21-46); MONOCYTES ABSOLUTE AUTO 0.78 K/mm3 (0.16-1.47); MONOCYTES PERCENT AUTO 8 % (4-13); Mean Corpuscular HGB 28.5 pg (26.0-34.0); Mean Corpuscular HGB Conc 31.6 g/dL (31.5-36.5); Mean Corpuscular Volume 90 fL (80-100); Mean Platelet Volume 11.2 fL (9.1-12.4); NEUTROPHILS ABSOLUTE AUTO 8.17 K/mm3 (1.96-9.15); NEUTROPHILS PERCENT AUTO 81 % (41-73); Platelet Count 222 K/mm3 (150-400); RDW Coefficient Variation 14.6 % (11.7-14.2); RDW Standard Deviation 48.3 fL (35.1-46.3); Red Blood Cell Count 3.47 M/mm3 (4.30-5.90); White Blood Cell Count 10.06 K/mm3 (4.00-11.30)
[2018-12-22 09:10] LABS: Alanine Aminotransfer (ALT/SGP 29 U/L (12-78); Albumin, Blood 2.8 g/dL (3.4-5.0); Albumin/Globulin Ratio 0.7 (0.8-1.8); Alk Phos 110 U/L (50-136); Anion Gap 7 mmol/L (6-16); Aspartate Aminotrans (AST/SGOT 10 U/L (12-37); Bilirubin, Total 0.9 mg/dL (0.1-1.0); Blood Urea Nitrogen 14 mg/dL (8-24); Bun/Creatinine Ratio 14.3 (12.0-20.0); CO2, Blood 29 mmol/L (21-32); Calcium, Blood 8.1 mg/dL (8.5-10.1); Chloride, Blood 106 mmol/L (98-108); Creatinine, Blood 0.98 mg/dL (0.60-1.20); Globulin, Blood 3.8 g/dL (2.2-4.0); Glomerular Filtration Rate >60 (60-); Glucose, Blood 112 mg/dL (70-99); Potassium, Blood 2.8 mmol/L (3.5-5.5); Sodium, Blood 142 mmol/L (136-145); Total Protein, Blood 6.6 g/dL (6.4-8.2); Troponin I 0.029 ng/mL (0.000-0.040)
[2018-12-22 09:18] LABS: Source, Urine Clean Catch
[2018-12-22 09:21] LABS: Appearance, Urine Clear (Clear); Bilirubin, Urine Neg (Neg); Blood, Urine 3+ (Neg); Color, Urine Yellow (P-Yellow); Glucose Qualitative, Urine 1+ (Neg); Ketones, Urine Neg (Neg); Leukocyte Esterase, Urine 1+ (Neg); Nitrite, Urine Neg (Neg); Protein, Urine 2+ (Neg); Specific Gravity, Urine 1.015 (1.003-1.022); Urobilinogen, Urine 1+ (Normal)
[2018-12-22 09:33] LABS: Squamous Epithelial Cells Rare /hpf (Few)
[2018-12-22 09:34] LABS: Bacteria Few /hpf
[2018-12-22 15:31] LABS: Anion Gap 7 mmol/L (6-16); Blood Urea Nitrogen 13 mg/dL (8-24); Bun/Creatinine Ratio 15.2 (12.0-20.0); CO2, Blood 30 mmol/L (21-32); Calcium, Blood 7.9 mg/dL (8.5-10.1); Chloride, Blood 105 mmol/L (98-108); Creatinine, Blood 0.86 mg/dL (0.60-1.20); Glomerular Filtration Rate >60 (60-); Glucose, Blood 89 mg/dL (70-99); Potassium, Blood 2.9 mmol/L (3.5-5.5); Sodium, Blood 142 mmol/L (136-145)
[2018-12-22] MEDS ORDERED: ASPI81CH PO (17:35)
[2018-12-22] MEDS ORDERED: CLON.5 PO (17:36)
[2018-12-22] MEDS ORDERED: LISI20 PO (17:38)
[2018-12-22] MEDS ORDERED: CLON.3TP TOP (18:03)
[2018-12-22] MEDS ORDERED: ONDA4 PO (18:05)
[2018-12-22 19:08] LABS: Influenza A Negative (NEGATIVE); Influenza B Negative (NEGATIVE)
--- NOTE | 2018-12-23 04:20 | NUR ---
VSS, AFEBRILE, A/O, CBG ACHS, HOPE, WEAK, 2PA TO BSC, 20G L FA, SLEPT WELL, NO COMPLAINTS.
[2018-12-23 05:13] LABS: Hematocrit 31.4 % (37.0-53.0); Hemoglobin 9.9 g/dL (13.5-17.5); Mean Corpuscular HGB 28.4 pg (26.0-34.0); Mean Corpuscular HGB Conc 31.5 g/dL (31.5-36.5); Mean Corpuscular Volume 90 fL (80-100); Mean Platelet Volume 11.2 fL (9.1-12.4); Platelet Count 205 K/mm3 (150-400); RDW Coefficient Variation 14.8 % (11.7-14.2); RDW Standard Deviation 49.2 fL (35.1-46.3); Red Blood Cell Count 3.48 M/mm3 (4.30-5.90); White Blood Cell Count 9.51 K/mm3 (4.00-11.30)
[2018-12-23 05:38] LABS: Percent Saturation 5.6 % (20.0-50.0)
[2018-12-23 05:41] LABS: Albumin, Blood 2.8 g/dL (3.4-5.0); Anion Gap 9 mmol/L (6-16); Blood Urea Nitrogen 13 mg/dL (8-24); CO2, Blood 26 mmol/L (21-32); Calcium, Blood 8.2 mg/dL (8.5-10.1); Chloride, Blood 106 mmol/L (98-108); Creatinine, Blood 0.87 mg/dL (0.60-1.20); Glomerular Filtration Rate >60 (60-); Glucose, Blood 128 mg/dL (70-99); Phosphorus, Blood 2.8 mg/dL (2.5-4.9); Potassium, Blood 3.3 mmol/L (3.5-5.5); Sodium, Blood 141 mmol/L (136-145)
[2018-12-23 06:24] LABS: BAND PERCENT MAN 4 % (0-8); BASOPHILS ABSOLUTE MAN 0.19 K/mm3 (0.00-0.23); BASOPHILS PERCENT MAN 2 % (0-2); EOSINOPHILS PERCENT MAN 0 % (0-6); LYMPHOCYTES ABSOLUTE MAN 0.66 K/mm3 (0.84-5.20); LYMPHOCYTES PERCENT MAN 7 % (21-46); MONOCYTES ABSOLUTE MAN 0.66 K/mm3 (0.16-1.47); MONOCYTES PERCENT MAN 7 % (4-13); NEUTROPHILS ABSOLUTE MAN 7.98 K/mm3 (1.96-9.15); SEG NEUTROPHILS PERCENT MAN 80 % (41-73); TOTAL CELLS COUNTED 100
--- NOTE | 2018-12-23 18:11 | NUR ---
Mr. Chakraborty was pleasantly dismissive of pastoral care at this time. Advised locomotive firer services will remain available.
--- NOTE | 2018-12-23 19:22 | NUR ---
SHIFT SUMMARY PT UP TO CHAIR THIS AFTERNOON AFTER AMBULATING IN HALLWAY WITH P.T. 400 FEET USING FWW. DECLINED LUNCH BUT DID EAT SUPPER. VOIDED ONLY TWICE TODAY BUT ADEQUATELY. HAS DENIED PAIN OR RESP DISTRESS
--- NOTE | 2018-12-24 05:18 | NUR ---
VSS, AFEBRILE, A/O, CBG ACHS, INCONT AT TIMES, 20G L FA, SLEPT WELL, NO COMPLAINTS.
[2018-12-24 05:45] LABS: Albumin, Blood 2.5 g/dL (3.4-5.0); Anion Gap 8 mmol/L (6-16); Blood Urea Nitrogen 16 mg/dL (8-24); Bun/Creatinine Ratio 17.4 (12.0-20.0); CO2, Blood 25 mmol/L (21-32); Chloride, Blood 108 mmol/L (98-108); Creatinine, Blood 0.92 mg/dL (0.60-1.20); Glomerular Filtration Rate >60 (60-); Glucose, Blood 137 mg/dL (70-99); Potassium, Blood 3.6 mmol/L (3.5-5.5); Sodium, Blood 141 mmol/L (136-145)
[2018-12-24] MEDS ORDERED: CEFU500T30 PO (17:48)
--- NOTE | 2018-12-24 18:09 | NUR ---
D/C INSTRUCTIONS PROVIDED AND EXPLAINED. MEDS FAXED TO [facility] [address]. IV REMOVED. PT D/C VIA WHEELCHAIR WITH DRAW IN HAND AND SPOUSE AT 1810.
== END 2018-12-24 18:10 | disposition home or self-care (01) | DRG 194 ==
LOC: ER 07:56 → ERHOLD 11:19 → MEDS 17:08
PROVIDERS: Internal Medicine Endocrinology, Diabetes & Metabolism; Physician Assistant; ADMIT Internal Medicine
DX: J18.9 Pneumonia, unspecified organism (principal); I50.30 Unspecified diastolic (congestive) heart failure; G47.33 Obstructive sleep apnea (adult) (pediatric); I11.0 Hypertensive heart disease with heart failure; I48.2 Chronic atrial fibrillation; E87.6 Hypokalemia; F03.90 Unspecified dementia, unspecified severity, without behavioral disturbance, psychotic disturbance, mood disturbance, and anxiety; R31.29 Other microscopic hematuria; K21.9 Gastro-esophageal reflux disease without esophagitis; R25.1 Tremor, unspecified; L21.9 Seborrheic dermatitis, unspecified; E11.65 Type 2 diabetes mellitus with hyperglycemia; D64.9 Anemia, unspecified; M19.90 Unspecified osteoarthritis, unspecified site; N40.0 Benign prostatic hyperplasia without lower urinary tract symptoms; Z86.73 Personal history of transient ischemic attack (TIA), and cerebral infarction without residual deficits; Z87.891 Personal history of nicotine dependence; Z88.8 Allergy status to other drugs, medicaments and biological substances; Z79.84 Long term (current) use of oral hypoglycemic drugs; Z79.82 Long term (current) use of aspirin; Z79.4 Long term (current) use of insulin; Z79.899 Other long term (current) drug therapy
CPT/HCPCS: 36415; 70450; 71046; 74176; 80048; 80053; 80069; 81001; 82607; 82728; 82746; 82947; 83540; 83550; 83605; 83880; 84484; 85007; 85025; 85027; 87086; 87804; 93005; 93010; 94660; 94762; 96374; 96375; 97116; 97161; 97166; 97530; 97535; 99285-25; J0456; J0696; J1650; J3480; J7050

== ENCOUNTER 2019-01-08 02:12 | Inpatient (IN) | payer MEDICARE, BC ==
[~2019-01-08] VITALS: Ht 180.3 cm; Wt 90.9 kg
[~2019-01-08 02:12] MED LIST changes: +ATORVASTATIN CA40 MG PO; +CEFU500T30 PO; +ONDA4 PO
[2019-01-08 02:38] LABS: BASOPHILS ABSOLUTE AUTO 0.12 K/mm3 (0.00-0.23); BASOPHILS PERCENT AUTO 1 % (0-2); EOSINOPHILS ABSOLUTE AUTO 0.26 K/mm3 (0.00-0.68); EOSINOPHILS PERCENT AUTO 3 % (0-6); IMMATURE GRAN ABSOLUTE AUTO 0.05 K/mm3 (0.00-0.10); IMMATURE GRAN PERCENT AUTO 1 % (0-1); LYMPHOCYTES ABSOLUTE AUTO 0.84 K/mm3 (0.84-5.20); LYMPHOCYTES PERCENT AUTO 9 % (21-46); MONOCYTES ABSOLUTE AUTO 0.65 K/mm3 (0.16-1.47); MONOCYTES PERCENT AUTO 7 % (4-13); Mean Corpuscular HGB 28.2 pg (26.0-34.0); Mean Corpuscular HGB Conc 30.3 g/dL (31.5-36.5); Mean Corpuscular Volume 93 fL (80-100); Mean Platelet Volume 11.4 fL (9.1-12.4); NEUTROPHILS ABSOLUTE AUTO 7.92 K/mm3 (1.96-9.15); NEUTROPHILS PERCENT AUTO 81 % (41-73); Platelet Count 307 K/mm3 (150-400); RDW Coefficient Variation 15.6 % (11.7-14.2); RDW Standard Deviation 53.6 fL (35.1-46.3); Red Blood Cell Count 3.54 M/mm3 (4.30-5.90); White Blood Cell Count 9.84 K/mm3 (4.00-11.30)
[2019-01-08 02:52] LABS: Alanine Aminotransfer (ALT/SGP 35 U/L (12-78); Albumin/Globulin Ratio 0.7 (0.8-1.8); Alk Phos 117 U/L (50-136); Anion Gap 8 mmol/L (6-16); Aspartate Aminotrans (AST/SGOT 22 U/L (12-37); Bilirubin, Total 0.6 mg/dL (0.1-1.0); Blood Urea Nitrogen 20 mg/dL (8-24); Bun/Creatinine Ratio 19.6 (12.0-20.0); CO2, Blood 28 mmol/L (21-32); Calcium, Blood 8.2 mg/dL (8.5-10.1); Chloride, Blood 109 mmol/L (98-108); Creatinine, Blood 1.02 mg/dL (0.60-1.20); Globulin, Blood 4.1 g/dL (2.2-4.0); Glomerular Filtration Rate >60 (60-); Glucose, Blood 156 mg/dL (70-99); Potassium, Blood 3.4 mmol/L (3.5-5.5); Sodium, Blood 145 mmol/L (136-145); Total Protein, Blood 7.1 g/dL (6.4-8.2); Troponin I <0.015 ng/mL (0.000-0.040)
[2019-01-08 05:53] LABS: Hematocrit 32.2 % (37.0-53.0); Hemoglobin 9.8 g/dL (13.5-17.5); Mean Corpuscular HGB 28.5 pg (26.0-34.0); Mean Corpuscular HGB Conc 30.4 g/dL (31.5-36.5); Mean Corpuscular Volume 94 fL (80-100); Mean Platelet Volume 11.6 fL (9.1-12.4); Platelet Count 261 K/mm3 (150-400); RDW Coefficient Variation 15.8 % (11.7-14.2); RDW Standard Deviation 53.9 fL (35.1-46.3); Red Blood Cell Count 3.44 M/mm3 (4.30-5.90); White Blood Cell Count 10.04 K/mm3 (4.00-11.30)
[2019-01-08 06:08] LABS: Alanine Aminotransfer (ALT/SGP 33 U/L (12-78); Albumin, Blood 2.9 g/dL (3.4-5.0); Albumin/Globulin Ratio 0.7 (0.8-1.8); Alk Phos 120 U/L (50-136); Anion Gap 6 mmol/L (6-16); Aspartate Aminotrans (AST/SGOT 19 U/L (12-37); Bilirubin, Total 0.5 mg/dL (0.1-1.0); Blood Urea Nitrogen 23 mg/dL (8-24); Bun/Creatinine Ratio 23.5 (12.0-20.0); CO2, Blood 29 mmol/L (21-32); Calcium, Blood 8.1 mg/dL (8.5-10.1); Chloride, Blood 108 mmol/L (98-108); Creatinine, Blood 0.98 mg/dL (0.60-1.20); Globulin, Blood 4.1 g/dL (2.2-4.0); Glomerular Filtration Rate >60 (60-); Glucose, Blood 200 mg/dL (70-99); Potassium, Blood 3.5 mmol/L (3.5-5.5); Sodium, Blood 143 mmol/L (136-145)
[2019-01-08 10:16] LABS: Adenovirus Not Detected (NOT DETECT); Bordetella pertussis Not Detected (NOT DETECT); Chlamydophila pneumoniae Not Detected (NOT DETECT); Coronavirus 229E Not Detected (NOT DETECT); Coronavirus HKU1 Not Detected (NOT DETECT); Coronavirus NL63 Not Detected (NOT DETECT); Coronavirus OC43 Not Detected (NOT DETECT); Human Metapneumovirus Not Detected (NOT DETECT); Human Rhinovirus/Enterovirus Not Detected (NOT DETECT); Influenza A Not Detected (NOT DETECT); Influenza A/2009-H1 Not Detected (NOT DETECT); Influenza A/H1 Not Detected (NOT DETECT); Influenza A/H3 Not Detected (NOT DETECT); Influenza B Not Detected (NOT DETECT); Mycoplasma pneumoniae Not Detected (NOT DETECT); Parainfluenza Virus 1 Not Detected (NOT DETECT); Parainfluenza Virus 2 Not Detected (NOT DETECT); Parainfluenza Virus 3 Not Detected (NOT DETECT); Parainfluenza Virus 4 Not Detected (NOT DETECT); Respiratory Syncytial Virus Not Detected (NOT DETECT)
--- NOTE | 2019-01-08 17:30 | NUR ---
SHIFT SUMMARY PT UP TO CHAIR FOR LUNCH TODAY AND SAT UP FOR APPROX 1 HOUR BEFORE REQUESTING TO LAY DOWN. LAYED BACK IN CHAIR. P.T. IN TO SEE PT AND AMBULATED HIM IN HALLWAY USING FWW. PER P.T. SATS ON 2L/M DROPPED TO 89-90% WITH ACTIVITY. RECOVERED QUICKLY AFTER SITTING BACK DOWN AND SATS UP TO 95% ON 2L/M. DROPPED O2 TO 1L/M AT THAT TIME. FOUND WITH O2 OUT OF NOSE AND SATS AT REST 94% WITH NO INCREASE IN DYSPNEA. CURRENTLY RECLINING IN CHAIR WATCHING TV.
--- NOTE | 2019-01-09 07:32 | NUR ---
*SHIFT SUMMARY* PT IS ALERT AND ORIENTED. USED CPAP THROUGHOUT THE NIGHT. USES CALL LIGHT APPROPRIATELY. PATIENT HAD ELEVATED BP AT BEGINING OF SHIFT, IT WAS NOTED THAT PTS HOME MEDICATIONS WERE NOT ORDERED IN EM[facility]. HOSPITALIST CALLED AND HOME MEDS WERE ORDERED. PT IS ON 1800 FLUID RESTRICTION. BLOOD PRESSURE RECHECKED AFTER BP MEDICATION ADMINISTERED AND DECREASED SOME. PT ON TELE AT 94 BPM SINUS RHYTHM. NO NEW CHANGES IN STATUS. BED LOWERED AND LOCKED. VITALS STILL SLIGHTLY ELEVATED THIS AM.
[2019-01-09] MEDS ORDERED: FURO40 PO (15:24)
[2019-01-09] MEDS ORDERED: LEVFLO500 PO (15:25)
[2019-01-09] MEDS ORDERED: Klor-Con M1010 MEQ PO (15:25)
--- NOTE | 2019-01-09 16:00 | NUR ---
DISCHARGE INSTRUCTIONS COMPLETED AND DISCUSSED WITH PT EXPRESSING UNDERSTANDING. SCRIPTS FAXED TO [facility]. HERE TO PICK PT UP. TO [facility] VIA W/C.
== END 2019-01-09 15:52 | disposition home or self-care (01) | DRG 291 ==
LOC: ER 02:12 → MEDS 02:13 → ER 04:25 → MEDS 05:26 → ENPENDDIS 01-09 14:05 → MEDS 01-09 15:52
PROVIDERS: Emergency Medicine; ADMIT Internal Medicine
DX: I11.0 Hypertensive heart disease with heart failure (principal); J96.01 Acute respiratory failure with hypoxia; I50.33 Acute on chronic diastolic (congestive) heart failure; I48.0 Paroxysmal atrial fibrillation; E11.9 Type 2 diabetes mellitus without complications; G47.30 Sleep apnea, unspecified; E66.9 Obesity, unspecified; M19.90 Unspecified osteoarthritis, unspecified site; K21.9 Gastro-esophageal reflux disease without esophagitis; N40.0 Benign prostatic hyperplasia without lower urinary tract symptoms; Z86.73 Personal history of transient ischemic attack (TIA), and cerebral infarction without residual deficits; Z79.82 Long term (current) use of aspirin; Z79.4 Long term (current) use of insulin; Z79.899 Other long term (current) drug therapy; Z88.8 Allergy status to other drugs, medicaments and biological substances; Z91.048 Other nonmedicinal substance allergy status; Z87.891 Personal history of nicotine dependence; Z68.27 Body mass index [BMI] 27.0-27.9, adult
CPT/HCPCS: 36415; 71045; 80053; 82947; 83605; 83880; 84145; 84484; 85025; 85027; 87486; 87581; 87633; 87798; 92610; 93005; 93010; 94640; 94660; 94762; 96365; 96375; 97110; 97161; 99285-25; J0456; J0696; J1650; J1940; J1956; J3480; J7040; J7050

== ENCOUNTER → 2019-01-20 | Outpatient (CLI) | payer MEDICARE, BC ==
[~2019-01-20] MED LIST changes: +FURO40 PO; +Klor-Con M1010 MEQ PO; +LEVFLO500 PO
== END | disposition home or self-care (01) ==
LOC: LAB SHORT 11:37 → LAB 11:37
DX: I11.0 Hypertensive heart disease with heart failure (principal); I50.9 Heart failure, unspecified
CPT/HCPCS: 84105

== ENCOUNTER 2019-02-10 05:38 | Inpatient (IN) | payer MEDICARE, BC ==
[~2019-02-10] VITALS: Ht 182.9 cm; Wt 83.7 kg
[2019-02-10 06:03] LABS: BASOPHILS ABSOLUTE AUTO 0.08 K/mm3 (0.00-0.23); BASOPHILS PERCENT AUTO 1 % (0-2); EOSINOPHILS ABSOLUTE AUTO 0.22 K/mm3 (0.00-0.68); EOSINOPHILS PERCENT AUTO 2 % (0-6); Hematocrit 37.4 % (37.0-53.0); Hemoglobin 11.7 g/dL (13.5-17.5); IMMATURE GRAN ABSOLUTE AUTO 0.04 K/mm3 (0.00-0.10); IMMATURE GRAN PERCENT AUTO 0 % (0-1); LYMPHOCYTES ABSOLUTE AUTO 0.79 K/mm3 (0.84-5.20); LYMPHOCYTES PERCENT AUTO 8 % (21-46); MONOCYTES ABSOLUTE AUTO 0.87 K/mm3 (0.16-1.47); MONOCYTES PERCENT AUTO 8 % (4-13); Mean Corpuscular HGB 27.9 pg (26.0-34.0); Mean Corpuscular HGB Conc 31.3 g/dL (31.5-36.5); Mean Corpuscular Volume 89 fL (80-100); Mean Platelet Volume 11.9 fL (9.1-12.4); NEUTROPHILS ABSOLUTE AUTO 8.59 K/mm3 (1.96-9.15); NEUTROPHILS PERCENT AUTO 81 % (41-73); Platelet Count 178 K/mm3 (150-400); RDW Coefficient Variation 14.3 % (11.7-14.2); White Blood Cell Count 10.59 K/mm3 (4.00-11.30)
[2019-02-10] MEDS ORDERED: POTASSIUM CHLO20 MEQ PO (06:11)
[2019-02-10 06:20] LABS: Alanine Aminotransfer (ALT/SGP 25 U/L (12-78); Albumin, Blood 3.2 g/dL (3.4-5.0); Albumin/Globulin Ratio 0.8 (0.8-1.8); Alk Phos 126 U/L (50-136); Anion Gap 9 mmol/L (6-16); Aspartate Aminotrans (AST/SGOT 27 U/L (12-37); Bilirubin, Total 0.5 mg/dL (0.1-1.0); Blood Urea Nitrogen 20 mg/dL (8-24); Bun/Creatinine Ratio 19.2 (12.0-20.0); CO2, Blood 27 mmol/L (21-32); Calcium, Blood 8.4 mg/dL (8.5-10.1); Chloride, Blood 105 mmol/L (98-108); Creatinine, Blood 1.04 mg/dL (0.60-1.20); Globulin, Blood 4.1 g/dL (2.2-4.0); Glomerular Filtration Rate >60 (60-); Glucose, Blood 177 mg/dL (70-99); Potassium, Blood 2.8 mmol/L (3.5-5.5); Sodium, Blood 141 mmol/L (136-145); Total Protein, Blood 7.3 g/dL (6.4-8.2)
[2019-02-10 06:27] LABS: Source, Urine Clean Catch
[2019-02-10 06:44] LABS: Appearance, Urine Clear (Clear); Bilirubin, Urine Neg (Neg); Blood, Urine 2+ (Neg); Color, Urine Yellow (P-Yellow); Glucose Qualitative, Urine 2+ (Neg); Ketones, Urine Neg (Neg); Leukocyte Esterase, Urine Neg (Neg); Nitrite, Urine Neg (Neg); Protein, Urine 2+ (Neg); Urobilinogen, Urine NORM (Normal)
[2019-02-10 06:54] LABS: White Blood Cells, Urine 0-2 /hpf (0-5)
[2019-02-10 06:56] LABS: Amorphous Light (0-Heavy); Bacteria Rare /hpf; Squamous Epithelial Cells Rare /hpf (Few)
--- NOTE | 2019-02-10 13:11 | NUR ---
DR LOPEZ HERE TO SEE PT.
[2019-02-10] MEDS ORDERED: MIRALAX17 GM PO (14:54)
[2019-02-10] MEDS ORDERED: MECL12.5 PO (14:55)
[2019-02-10] MEDS ORDERED: GLIM2 PO (14:56)
[2019-02-10] MEDS ORDERED: CLON.3TP TD (14:58)
[2019-02-10] MEDS ORDERED: BUPR100ER PO (14:59)
[2019-02-10] MEDS ORDERED: Abilify2 MG PO (14:59)
--- NOTE | 2019-02-10 19:06 | NUR ---
SHIFT SUMMARY PT NEW ADMIT TODAY. PT A/O AT THIS TIME. PT ATE DINNER. PT REPORTS UNDERSTANDING OF NPO AFTER MIDNIGHT. PT VOIDING AND HAD BM. TOPPIECE CHOPPER ASSISTED WITH ADMIT PAPERWORK. DR MAHMOOD AND DR GOTTI BEEN TO SEE PT. PAS AND BED ALARM IN PLACE.
[2019-02-10 21:54] LABS: Anion Gap 8 mmol/L (6-16); Blood Urea Nitrogen 16 mg/dL (8-24); Bun/Creatinine Ratio 13.8 (12.0-20.0); CO2, Blood 26 mmol/L (21-32); Calcium, Blood 8.3 mg/dL (8.5-10.1); Chloride, Blood 107 mmol/L (98-108); Creatinine, Blood 1.16 mg/dL (0.60-1.20); Glomerular Filtration Rate >60 (60-); Glucose, Blood 169 mg/dL (70-99); Potassium, Blood 3.2 mmol/L (3.5-5.5); Sodium, Blood 141 mmol/L (136-145)
--- NOTE | 2019-02-11 04:31 | NUR ---
SHIFT SUMMARY: PT A&O X4. BP ELEVATED T/O SHIFT. GIVEN SCHED 2100 BP MEDS AND IV HYDRALAZINE. FEBRILE IN BEGINNING OF SHIFT; GIVEN A ONE TIME ORDERED DOSE OF TYLENOL 500 MG. TEMP STABLE AT THIS TIME. PAIN MANAGED WITH 25 MCG OF FENTANYL. USING URINAL AND BRIEF TO VOID. INCONTINENT OF URINE AND STOOL ONCE. PT NPO FOR SCHED SURGERY LATER TODAY. 18 G IN LEFT WRIST. USING MOUTH SWABS PRN FOR ORAL CARE. FLUIDS INFUSING. SCHED ABX GIVEN.
[2019-02-11 04:40] LABS: BASOPHILS ABSOLUTE AUTO 0.11 K/mm3 (0.00-0.23); BASOPHILS PERCENT AUTO 1 % (0-2); EOSINOPHILS ABSOLUTE AUTO 0.52 K/mm3 (0.00-0.68); EOSINOPHILS PERCENT AUTO 5 % (0-6); Hemoglobin 11.9 g/dL (13.5-17.5); IMMATURE GRAN ABSOLUTE AUTO 0.03 K/mm3 (0.00-0.10); IMMATURE GRAN PERCENT AUTO 0 % (0-1); LYMPHOCYTES ABSOLUTE AUTO 0.91 K/mm3 (0.84-5.20); LYMPHOCYTES PERCENT AUTO 9 % (21-46); MONOCYTES ABSOLUTE AUTO 0.82 K/mm3 (0.16-1.47); MONOCYTES PERCENT AUTO 9 % (4-13); Mean Corpuscular HGB 27.6 pg (26.0-34.0); Mean Corpuscular HGB Conc 30.5 g/dL (31.5-36.5); Mean Corpuscular Volume 91 fL (80-100); Mean Platelet Volume 11.4 fL (9.1-12.4); NEUTROPHILS ABSOLUTE AUTO 7.25 K/mm3 (1.96-9.15); NEUTROPHILS PERCENT AUTO 75 % (41-73); Platelet Count 160 K/mm3 (150-400); RDW Coefficient Variation 14.5 % (11.7-14.2); RDW Standard Deviation 48.3 fL (35.1-46.3); Red Blood Cell Count 4.31 M/mm3 (4.30-5.90); White Blood Cell Count 9.64 K/mm3 (4.00-11.30)
[2019-02-11 05:18] LABS: Alanine Aminotransfer (ALT/SGP 27 U/L (12-78); Albumin, Blood 3.1 g/dL (3.4-5.0); Albumin/Globulin Ratio 0.7 (0.8-1.8); Alk Phos 123 U/L (50-136); Anion Gap 8 mmol/L (6-16); Aspartate Aminotrans (AST/SGOT 34 U/L (12-37); Bilirubin, Total 0.7 mg/dL (0.1-1.0); Blood Urea Nitrogen 15 mg/dL (8-24); Bun/Creatinine Ratio 15.1 (12.0-20.0); CO2, Blood 28 mmol/L (21-32); Calcium, Blood 8.5 mg/dL (8.5-10.1); Chloride, Blood 106 mmol/L (98-108); Creatinine, Blood 0.99 mg/dL (0.60-1.20); Globulin, Blood 4.4 g/dL (2.2-4.0); Glomerular Filtration Rate >60 (60-); Glucose, Blood 111 mg/dL (70-99); Potassium, Blood 3.2 mmol/L (3.5-5.5); Sodium, Blood 142 mmol/L (136-145); Total Protein, Blood 7.5 g/dL (6.4-8.2)
--- NOTE | 2019-02-11 13:20 | NUR ---
DR SY HERE TO SEE PT.
--- NOTE | 2019-02-11 13:54 | NUR ---
PT TO HAVE PROCEDURE WITH OTHER STAFF IN OWN BED.
--- NOTE | 2019-02-11 16:30 | NUR ---
SHIFT SUMMARY PT OUT OF ROOM FOR PROCEDURE AT THIS TIME. FAMILY WAS IN/OUT OF ROOM. PT WAS NPO PRIOR TO SURGERY EXCEPT FOR CARDIAC MEDS WITH SIP OF WATER. DR SY HERE TO SEE PT PRIOR TO PT LEAVING FOR PROCEDURE AND AWARE OF MEDS HELD TODAY AND VITAL SIGNS. PT BEEN ASSISTED WITH ADL'S PRN. PT HAS HAD BLE PAS IN PLACE.
--- NOTE | 2019-02-11 18:38 | NUR ---
PT BACK FROM HAVING PROCEDURE. PT DENIES PAIN, N/V,SOB. PT HAS SMALL GAUZE TO R HIP. PAS IN PLACE. PT WIGGLES TOES. FAMILY PRESENT. VS APPROX SAME TELE PLACED BACK IN PLACE. RT NOTIFIED PT TO ROOM.
--- NOTE | 2019-02-11 19:51 | NUR ---
NOTIFIED ABOUT 1899 BY TELE MONITOR THAT PT HAD CONVERTED TO A-FIB. HE DENIES CP, SOB, PALPITATIONS. PT IS RECEIVING POTASSIUM PO AND A FLUID ADDITIVE AT THIS TIME. MEDICATED FOR PAIN AT THIS TIME WELL. CALLED DR. JENSEN TO NOTIFY OF TELE CHANGE, PT HAS HX A-FIB WELL. WILL REVIEW THE CHART AND ADD ORDERS IF NEEDED. WILL CTM.
--- NOTE | 2019-02-11 21:46 | NUR ---
2145: ASSUMED CARE FROM PREVIOUS RN. PT RESTING QUIETLY IN BED AND DENIES PAIN OR NEED @ THIS TIME. CALL LIGHT IN REACH.
--- NOTE | 2019-02-11 23:56 | NUR ---
2356: RN NOTIFIED BY PCU ENGRAVER PANTOGRAPH THAT PT HAS CONVERTED BACK TO NORMAL SINUS RHYTHM WITH A RATE OF 94 BPM. PT SLEEPING SOUNDLY WITH CPAP ON, CALL LIGHT IN REACH.
[2019-02-12 04:43] LABS: Anion Gap 6 mmol/L (6-16); Blood Urea Nitrogen 21 mg/dL (8-24); Bun/Creatinine Ratio 19.6 (12.0-20.0); CO2, Blood 29 mmol/L (21-32); Calcium, Blood 8.7 mg/dL (8.5-10.1); Chloride, Blood 105 mmol/L (98-108); Creatinine, Blood 1.07 mg/dL (0.60-1.20); Glomerular Filtration Rate >60 (60-); Glucose, Blood 314 mg/dL (70-99); Potassium, Blood 4.1 mmol/L (3.5-5.5); Sodium, Blood 140 mmol/L (136-145)
--- NOTE | 2019-02-12 08:41 | NUR ---
IV ASSESSMENT PT HAS 2 IVs, ONE IN RIGHT FOREARM AND ONE IN RIGHT WRIST.
--- NOTE | 2019-02-12 18:12 | NUR ---
SHIFT SUMMARY ADMITTED FOR R HIP FX. PT IS NOW ADA DIET. BED ALARM IN PLACE. PT CAN AMBULATE WITH WALKER & GAIT BELT. USES URINAL. 18G IN RIGHT FOREARM. WEIGHT BEARING IS 50%. IF AMBULATED, APIARIST PT TO SIT DOWN SLOWLY. PATIENT GAIT IS IMPAIRED.
--- NOTE | 2019-02-12 18:21 | NUR ---
SHIFT SUMMARY PAIN HAS BEEN MANAGED WITH PO PAIN MEDICATION. PT IS A 1 ASSIST WITH GAIT BELT AND WALKER WHEN OOB. HE REQUIRES COACHING TO MAINTAIN WB STATUS AND TO SIT AND STAND SAFELY. PT IS UNSTEADY ON HIS FEET AT TIMES. PT'S EXPRESSED CONCERNS ABOUT HIM RETURNING HOME; SHE REPORTS HE HAS FREQUENT FALLS AT HOME AND OFTEN GETS UP AND WANDERS WITHOUT ASSISTANCE. VSS. WILL MONITOR UNTIL REPORT TO ONCOMING RN.
[2019-02-13 04:07] LABS: BASOPHILS ABSOLUTE AUTO 0.06 K/mm3 (0.00-0.23); BASOPHILS PERCENT AUTO 1 % (0-2); EOSINOPHILS ABSOLUTE AUTO 0.36 K/mm3 (0.00-0.68); EOSINOPHILS PERCENT AUTO 4 % (0-6); Hemoglobin 10.3 g/dL (13.5-17.5); IMMATURE GRAN ABSOLUTE AUTO 0.03 K/mm3 (0.00-0.10); IMMATURE GRAN PERCENT AUTO 0 % (0-1); LYMPHOCYTES ABSOLUTE AUTO 0.94 K/mm3 (0.84-5.20); LYMPHOCYTES PERCENT AUTO 11 % (21-46); MONOCYTES ABSOLUTE AUTO 0.65 K/mm3 (0.16-1.47); MONOCYTES PERCENT AUTO 8 % (4-13); Mean Corpuscular HGB 27.8 pg (26.0-34.0); Mean Corpuscular HGB Conc 31.2 g/dL (31.5-36.5); Mean Corpuscular Volume 89 fL (80-100); Mean Platelet Volume 11.8 fL (9.1-12.4); NEUTROPHILS ABSOLUTE AUTO 6.63 K/mm3 (1.96-9.15); NEUTROPHILS PERCENT AUTO 77 % (41-73); Platelet Count 151 K/mm3 (150-400); RDW Coefficient Variation 14.2 % (11.7-14.2); RDW Standard Deviation 46.3 fL (35.1-46.3); White Blood Cell Count 8.67 K/mm3 (4.00-11.30)
[2019-02-13 04:24] LABS: Anion Gap 7 mmol/L (6-16); Blood Urea Nitrogen 27 mg/dL (8-24); CO2, Blood 27 mmol/L (21-32); Calcium, Blood 8.5 mg/dL (8.5-10.1); Chloride, Blood 107 mmol/L (98-108); Glomerular Filtration Rate >60 (60-); Glucose, Blood 250 mg/dL (70-99); Potassium, Blood 3.9 mmol/L (3.5-5.5); Sodium, Blood 141 mmol/L (136-145)
--- NOTE | 2019-02-13 06:00 | NUR ---
SHIFT SUMMARY PT IS POD 2 RIGHT HIP PINNING. PT IS 50% WB TO RLE, ABLE TO AMBULATE IN THE HALLS WITH 1 ASSIST AND FWW. HE HAD ONE EPISODE OF PAIN, MEDICATED PER EMAR, BUT REPOSITIONING THE LEG WAS EFFECTIVE IN RELIEVING THE MAJORITY OF THE PAIN. PT IS GENERALLY A&O, COOPERATIVE WITH CARES. TELE WAS SINUS TAMMIE TO NSR. PT SL, TOLERATING ORALS W/O DIFFICULTY. WILL CTM UNTIL PASS TO NEXT SHIFT.
--- NOTE | 2019-02-13 18:24 | NUR ---
SHIFT SUMMARY PT A&OX4, VSS, POD2 R HIP PINNING 50% WB, SMALL SURG DRESSING TO BE CHANGED TO AQUACEL TOMORROW PRIOR TO DC TO SNF. PAIN MANAGED WITH 1 NORCO AND REPOSITIONING. BRIDGETTE PO, DENIES N&V. AMB 1 MOD ASSIST W/FWW & GB TO BR & HALLWAY. VOIDING WELL. UP TO CHAIR T/O SHIFT, LEGS ELEVATED, SCDS ON. WCTM & TX PER EMAR UNTIL REPORT GIVEN TO ONCOMING GEORGE RN.
--- NOTE | 2019-02-14 05:24 | NUR ---
SUMMARY POD 3 S/P RIGHT HIP PINNING. PT HAS DONE WELL DURING NIGHT. PT AMBULATES WITH MOD ASSIST WITH FWW AND GAIT BELT. GAIT IS SOMEWHAT UNSEADY AND DOES NEED FREQUENT INSTRUCTION. SMALL DRESSING TO RIGHT HIP IS CDI WITH GOOD CIRC CHECKS. TOLERATING PO AND VOIDING WELL. PLAN FOR SNF DC TODAY. CALL LIGHT IN REACH WILL REPORT OFF TO NEXT SHIFT.
--- NOTE | 2019-02-14 16:37 | NUR ---
SHIFT SUMMARY PT HAS DONE WELL TODAY. PAIN WELL MANAGED, TOLERATING DIET, VOIDING, DISCUSSED BOWEL CARE WITH PT SINCE NO BM x 3 DAYS, UNINTERESTED THIS MORNING BUT WITH MUCH ENCOURAGEMENT, AGREEABLE TO MIRALAX WITH DINNER. PLAN FOR TX TO SNF TOMORROW.
--- NOTE | 2019-02-14 21:44 | NUR ---
PHONE COMMUNICATION WITH DR. HILTON [phone]; NOTIFIED PT S/P HIP REPAIR, A FIB WITH RVR DURING ADMISSION, BP'S AVG 120'S TODAY, AND PT BEDTIME HOME MEDICATIONS, DILTIAZEM, APRESOLINE, TOPROL XL AND ZESTRIL DOSES FOR BEDTIME ORDERS; ORDER TO HOLD DILTIAZEM. NOTIFIED HR PER CONT. OXIMETRY IN 50'S, OCC DIPPED INTO HIGH 40'S AND THEN QUICKLY MOVED BACK INTO 50'S. NOTIFIED PLAN FOR PT TO GO TO SNF IN AM, CLARIFIED IF PT SHOULD BE ON TELE. DR. HILTON ORDERED TO PLACE TELE.
--- NOTE | 2019-02-15 06:12 | NUR ---
SHIFT SUMMARY PT ALERT T/O SHIFT. POD#4 R HIP REPAIR. DRESSING CDI. ICE TO R HIP PT TOLERATED. PT REPOSITIONED INDEPENDENTLY IN BED. CPAP WHILE SLEEPING. CONT. OXIMETRY IN PLACE. LOW HR NOTED; SEE PHYSICAIN COMMUNICATIONS NOTE. HR AVG 70'S A FLUTTER PER FACTORY CLERK THIS AM. DR. SHEPHERD NOTIFIED OF A FLUTTER AND PT HX [phone]. PT DENIES SOB, CP, NAUSEA AND DIZZINESS T/O SHIFT. BED ALARM AND SIDE RAILS X3 FOR SAFETY. CALL LIGHT IN REACH; PT DEMONSTRATES USE. SCD'S TO BLE'S. WCTM UNTIL REPORT TO DAY SHIFT RN.
--- NOTE | 2019-02-15 15:07 | NUR ---
SHIFT SUMMARY PAIN HAS BEEN WELL MANAGED, TOLERATING DIET, WORKING WITH THERAPY. AT BEDSIDE THIS AM. DELAY OF D/C PER CARE MANAGEMENT.
--- NOTE | 2019-02-15 15:39 | NUR ---
ASSUMED CARE OF PATIENT AT THIS TIME. PT UP TO CHAIR, DENIES NEEDS. CALL LIGHT IN REACH. WILL CONT TO MONITOR AND TREAT.
--- NOTE | 2019-02-16 05:42 | NUR ---
SHIFT SUMMARY PT POD#5. AAOX4. DRESSING TO RIGHT HIP C/D/I. PAIN CONTROLLED WITH 2 NORCO. NO NAUSEA/EMESIS. PT UP TO RESTROOM WITH FWW, CHUNG. RESTED WELL T/O NIGHT. TRANSFER TO SNF TODAY. LARGE BM THIS AM. CALL LIGHT IN REACH + PT USES FOR ASSISTANCE.
--- NOTE | 2019-02-16 10:35 | NUR ---
DISCHARGE DRSG CHANGED TO MAICOL, SURG SITE WNL, WORKING WITH THEAPY WELL, PAIN MANAGED, AND PT UPDATED ON SNF. W/C ESCORT TO SNF WITH [facility].
== END 2019-02-16 10:29 | DRG 482 ==
LOC: ER 05:38 → SURS 10:13
PROVIDERS: Emergency Medicine; Orthopaedic Surgery; Student in an Organized Health Care Education/Training Program; ADMIT Hospitalist
PROC: 0QH634Z Insertion of Internal Fixation Device into Right Upper Femur, Percutaneous Approach (ICD-10-PCS; principal; 2019-02-12)
DX: S72.001A Fracture of unspecified part of neck of right femur, initial encounter for closed fracture (principal); I48.0 Paroxysmal atrial fibrillation; Z86.73 Personal history of transient ischemic attack (TIA), and cerebral infarction without residual deficits; Z91.81 History of falling; I25.10 Atherosclerotic heart disease of native coronary artery without angina pectoris; Z87.891 Personal history of nicotine dependence; E78.1 Pure hyperglyceridemia; F41.8 Other specified anxiety disorders; I11.0 Hypertensive heart disease with heart failure; I50.9 Heart failure, unspecified; I25.2 Old myocardial infarction; K21.9 Gastro-esophageal reflux disease without esophagitis; W01.0XXA Fall on same level from slipping, tripping and stumbling without subsequent striking against object, initial encounter; R50.9 Fever, unspecified; E87.6 Hypokalemia; E11.65 Type 2 diabetes mellitus with hyperglycemia; Z79.4 Long term (current) use of insulin; G47.33 Obstructive sleep apnea (adult) (pediatric); G31.84 Mild cognitive impairment of uncertain or unknown etiology
CPT/HCPCS: 36415; 71046; 73502; 73700; 80048; 80053; 81001; 82947; 83605; 84145; 85025; 87040; 93005; 93010; 94660; 94762; 96361; 96365; 96375; 97110; 97116; 97161; 97530; 99285-25; A9270-GY; C1713; C1769; J0360; J0690; J0696; J1100; J1956; J2250; J2405; J2704; J3010; J3480; J7030; J7120

== ENCOUNTER → 2019-04-20 | Outpatient (CLI) | payer MEDICARE, BC ==
[~2019-04-20] MED LIST changes: +Abilify2 MG PO; +CLON.3TP TD; +GLIM2 PO; +Humalog100 UNIT/1; +LOPE2C PO; +MIRALAX17 GM PO; +ONDA4ODT MM; +POTASSIUM CHLO20 MEQ PO; +SITA50T2 PO; +SPIR25 PO; +XARELTO15 MG PO
== END | disposition home or self-care (01) ==
LOC: LAB SHORT 10:57 → PLD 10:57
DX: C44.612 Basal cell carcinoma of skin of right upper limb, including shoulder (principal); C44.619 Basal cell carcinoma of skin of left upper limb, including shoulder
CPT/HCPCS: 88305

== ENCOUNTER 2019-06-29 11:46 | Day surgery (SDC) | payer MEDICARE, BC ==
[~2019-06-29] VITALS: Ht 177.8 cm; Wt 80.5 kg
[~2019-06-29 11:46] MED LIST changes: -Humalog100 UNIT/1; -LOPE2C PO; -ONDA4ODT MM; -SITA50T2 PO; -SPIR25 PO; -XARELTO15 MG PO
[2019-06-29] MEDS ORDERED: Humalog100 UNIT/1 (12:45)
--- NOTE | 2019-06-29 13:51 | NUR ---
06/29/19 1351 Michelle Tinoco (Dana NEW COLD SNARE, "BOSTON SCIENTIFIC CAPTIVATOR COLD 10MM" NON-CHARGED ITEM USED TO EXTRACT FIRST ASCENDING COLON POLYP.
== END 2019-06-29 14:40 | disposition home or self-care (01) ==
LOC: ORSCSDS 11:46
PROVIDERS: Internal Medicine Gastroenterology
PROC: 0DBK8ZX Excision of Ascending Colon, Via Natural or Artificial Opening Endoscopic, Diagnostic (ICD-10-PCS; principal; 2019-06-29 13:00)
DX: Z12.11 Encounter for screening for malignant neoplasm of colon (principal); Z86.010 Personal history of colon polyps; K57.30 Diverticulosis of large intestine without perforation or abscess without bleeding; D12.2 Benign neoplasm of ascending colon; E11.9 Type 2 diabetes mellitus without complications; G47.33 Obstructive sleep apnea (adult) (pediatric); Z86.73 Personal history of transient ischemic attack (TIA), and cerebral infarction without residual deficits; Z79.899 Other long term (current) drug therapy; Z87.891 Personal history of nicotine dependence
CPT/HCPCS: 82947; 88305; J2704; J7120

== ENCOUNTER 2019-06-30 14:37 | Emergency (ER) | payer MEDICARE, BC ==
[~2019-06-30] VITALS: Ht 180.3 cm; Wt 80.3 kg
[~2019-06-30 14:37] MED LIST changes: +Humalog100 UNIT/1
[2019-06-30 15:02] LABS: BASOPHILS ABSOLUTE AUTO 0.06 K/mm3 (0.00-0.23); BASOPHILS PERCENT AUTO 1 % (0-2); EOSINOPHILS ABSOLUTE AUTO 0.11 K/mm3 (0.00-0.68); EOSINOPHILS PERCENT AUTO 2 % (0-6); Hematocrit 34.7 % (37.0-53.0); Hemoglobin 11.3 g/dL (13.5-17.5); IMMATURE GRAN ABSOLUTE AUTO 0.02 K/mm3 (0.00-0.10); IMMATURE GRAN PERCENT AUTO 0 % (0-1); LYMPHOCYTES ABSOLUTE AUTO 0.76 K/mm3 (0.84-5.20); LYMPHOCYTES PERCENT AUTO 11 % (21-46); MONOCYTES ABSOLUTE AUTO 0.65 K/mm3 (0.16-1.47); MONOCYTES PERCENT AUTO 9 % (4-13); Mean Corpuscular HGB 31.2 pg (26.0-34.0); Mean Corpuscular HGB Conc 32.6 g/dL (31.5-36.5); Mean Corpuscular Volume 96 fL (80-100); Mean Platelet Volume 11.5 fL (9.1-12.4); NEUTROPHILS PERCENT AUTO 78 % (41-73); Platelet Count 230 K/mm3 (150-400); RDW Standard Deviation 48.9 fL (35.1-46.3); Red Blood Cell Count 3.62 M/mm3 (4.30-5.90)
[2019-06-30 15:12] LABS: Albumin, Blood 3.1 g/dL (3.4-5.0); Albumin/Globulin Ratio 0.8 (0.8-1.8); Bilirubin, Total 0.4 mg/dL (0.1-1.0); Bun/Creatinine Ratio 9.7 (12.0-20.0); Calcium, Blood 8.4 mg/dL (8.5-10.1); Creatinine, Blood 2.57 mg/dL (0.60-1.20); Globulin, Blood 3.7 g/dL (2.2-4.0); Potassium, Blood 4.5 mmol/L (3.5-5.5); Total Protein, Blood 6.8 g/dL (6.4-8.2)
[2019-06-30 18:08] LABS: Source, Urine Clean Catch
[2019-06-30 18:17] LABS: Bilirubin, Urine Neg (Neg); Blood, Urine 1+ (Neg); Glucose Qualitative, Urine Neg (Neg); Ketones, Urine Neg (Neg); Leukocyte Esterase, Urine 1+ (Neg); Nitrite, Urine Neg (Neg); Protein, Urine 1+ (Neg); Urobilinogen, Urine NORM (Normal)
[2019-06-30 18:33] LABS: Appearance, Urine Hazy (Clear); Color, Urine Yellow (P-Yellow)
[2019-06-30 18:34] LABS: Amorphous Light ({null, 0-Heavy}); Bacteria Mod /hpf; Hyaline Casts 0-2 /lpf (0-2); Squamous Epithelial Cells Few /hpf (Few)
== END 2019-06-30 19:25 | disposition home or self-care (01) ==
LOC: ER 14:37
PROVIDERS: Emergency Medicine
DX: I95.9 Hypotension, unspecified (principal); E86.0 Dehydration; R79.89 Other specified abnormal findings of blood chemistry; E11.9 Type 2 diabetes mellitus without complications; Z86.73 Personal history of transient ischemic attack (TIA), and cerebral infarction without residual deficits; I48.91 Unspecified atrial fibrillation; Z91.040 Latex allergy status; Z91.048 Other nonmedicinal substance allergy status; Z88.8 Allergy status to other drugs, medicaments and biological substances; Z79.899 Other long term (current) drug therapy; Z79.4 Long term (current) use of insulin
CPT/HCPCS: 36415; 71046; 80053; 81001; 83880; 84145; 84484; 85025; 87086; 93005; 93010; 96360; 96361; 99285-25; J7030

== ENCOUNTER 2019-08-18 17:52 | Emergency (ER) | payer MEDICARE, BC ==
[~2019-08-18] VITALS: Ht 177.8 cm; Wt 80.7 kg
[2019-08-18 18:45] LABS: BASOPHILS ABSOLUTE AUTO 0.07 K/mm3 (0.00-0.23); BASOPHILS PERCENT AUTO 1 % (0-2); EOSINOPHILS ABSOLUTE AUTO 0.08 K/mm3 (0.00-0.68); EOSINOPHILS PERCENT AUTO 1 % (0-6); Hematocrit 40.2 % (37.0-53.0); Hemoglobin 13.4 g/dL (13.5-17.5); IMMATURE GRAN ABSOLUTE AUTO 0.03 K/mm3 (0.00-0.10); IMMATURE GRAN PERCENT AUTO 0 % (0-1); LYMPHOCYTES ABSOLUTE AUTO 1.09 K/mm3 (0.84-5.20); LYMPHOCYTES PERCENT AUTO 15 % (21-46); MONOCYTES ABSOLUTE AUTO 0.68 K/mm3 (0.16-1.47); MONOCYTES PERCENT AUTO 10 % (4-13); Mean Corpuscular HGB 30.4 pg (26.0-34.0); Mean Corpuscular HGB Conc 33.3 g/dL (31.5-36.5); Mean Corpuscular Volume 91 fL (80-100); Mean Platelet Volume 10.9 fL (9.1-12.4); NEUTROPHILS ABSOLUTE AUTO 5.21 K/mm3 (1.96-9.15); NEUTROPHILS PERCENT AUTO 73 % (41-73); Platelet Count 276 K/mm3 (150-400); RDW Coefficient Variation 12.1 % (11.7-14.2); RDW Standard Deviation 40.8 fL (35.1-46.3); Red Blood Cell Count 4.41 M/mm3 (4.30-5.90); White Blood Cell Count 7.16 K/mm3 (4.00-11.30)
[2019-08-18 19:03] LABS: Albumin, Blood 3.6 g/dL (3.4-5.0); Albumin/Globulin Ratio 0.8 (0.8-1.8); Bilirubin, Total 0.4 mg/dL (0.1-1.0); Bun/Creatinine Ratio 14.9 (12.0-20.0); Calcium, Blood 9.2 mg/dL (8.5-10.1); Creatinine, Blood 1.34 mg/dL (0.60-1.20); Globulin, Blood 4.3 g/dL (2.2-4.0); Potassium, Blood 3.9 mmol/L (3.5-5.5); Total Protein, Blood 7.9 g/dL (6.4-8.2)
[2019-08-18] MEDS ORDERED: XARELTO15 MG PO (20:59)
[2019-08-18] MEDS ORDERED: SPIR25 PO (21:00)
[2019-08-18] MEDS ORDERED: SITA50T2 PO (21:00)
[2019-08-18] MEDS ORDERED: VENL150ER PO (21:01)
[2019-08-18] MEDS ORDERED: LOPE2C PO (21:35)
[2019-08-18] MEDS ORDERED: ONDA4ODT MM (21:35)
== END 2019-08-18 22:01 | disposition home or self-care (01) ==
LOC: ER 17:52
PROVIDERS: Physician Assistant
DX: R11.2 Nausea with vomiting, unspecified (principal); R19.7 Diarrhea, unspecified; E11.9 Type 2 diabetes mellitus without complications; I11.0 Hypertensive heart disease with heart failure; I50.9 Heart failure, unspecified; I48.91 Unspecified atrial fibrillation; F41.9 Anxiety disorder, unspecified; F32.9 Major depressive disorder, single episode, unspecified; Z86.73 Personal history of transient ischemic attack (TIA), and cerebral infarction without residual deficits; Z87.891 Personal history of nicotine dependence; Z79.899 Other long term (current) drug therapy; Z79.01 Long term (current) use of anticoagulants; Z79.4 Long term (current) use of insulin
CPT/HCPCS: 36415; 80053; 83690; 85025; 96374; 99283-25; A9270-GY; J2405

== ENCOUNTER 2019-09-03 01:15 | Inpatient (IN) | payer MEDICARE, BC ==
[~2019-09-03] VITALS: Ht 182.9 cm; Wt 80.9 kg
[~2019-09-03 01:15] MED LIST changes: -CLON.3TP TD; +DILTIAZEM 24HR180 M1 PO; -DILTIAZEM 24HR180 M2 PO; -Humalog100 UNIT/1; +Humalog100 UNIT/1 SC; +LOPE2C PO; -OMEPRAZOLE MAGN20 MG PO; +OMEPRAZOLE20 MG PO; +ONDA4ODT MM; +POTA10T PO; +SITA50T2 PO; +SPIR25 PO; +XARELTO15 MG PO
[2019-09-03 02:11] LABS: Alanine Aminotransfer (ALT/SGP 56 U/L (12-78); Albumin, Blood 3.2 g/dL (3.4-5.0); Albumin/Globulin Ratio 0.8 (0.8-1.8); Alk Phos 145 U/L (50-136); Anion Gap 13 mmol/L (6-16); Aspartate Aminotrans (AST/SGOT 24 U/L (12-37); Bilirubin, Total 0.4 mg/dL (0.1-1.0); Blood Urea Nitrogen 39 mg/dL (8-24); Bun/Creatinine Ratio 18.4 (12.0-20.0); CO2, Blood 20 mmol/L (21-32); Calcium, Blood 8.5 mg/dL (8.5-10.1); Chloride, Blood 105 mmol/L (98-108); Creatinine, Blood 2.12 mg/dL (0.60-1.20); Globulin, Blood 3.8 g/dL (2.2-4.0); Glomerular Filtration Rate 33 (60-); Glucose, Blood 156 mg/dL (70-99); Magnesium, Blood 1.5 mg/dL (1.6-2.4); Potassium, Blood 4.1 mmol/L (3.5-5.5); Sodium, Blood 138 mmol/L (136-145); Troponin I <0.015 ng/mL (0.000-0.040)
[2019-09-03 02:14] LABS: BASOPHILS ABSOLUTE AUTO 0.11 K/mm3 (0.00-0.23); BASOPHILS PERCENT AUTO 1 % (0-2); EOSINOPHILS ABSOLUTE AUTO 0.02 K/mm3 (0.00-0.68); EOSINOPHILS PERCENT AUTO 0 % (0-6); Hematocrit 36.2 % (37.0-53.0); Hemoglobin 11.9 g/dL (13.5-17.5); IMMATURE GRAN ABSOLUTE AUTO 0.26 K/mm3 (0.00-0.10); IMMATURE GRAN PERCENT AUTO 1 % (0-1); LYMPHOCYTES ABSOLUTE AUTO 0.58 K/mm3 (0.84-5.20); LYMPHOCYTES PERCENT AUTO 3 % (21-46); MONOCYTES ABSOLUTE AUTO 1.59 K/mm3 (0.16-1.47); MONOCYTES PERCENT AUTO 8 % (4-13); Mean Corpuscular HGB 30.7 pg (26.0-34.0); Mean Corpuscular HGB Conc 32.9 g/dL (31.5-36.5); Mean Corpuscular Volume 93 fL (80-100); Mean Platelet Volume 11.4 fL (9.1-12.4); NEUTROPHILS ABSOLUTE AUTO 18.36 K/mm3 (1.96-9.15); NEUTROPHILS PERCENT AUTO 88 % (41-73); Platelet Count 245 K/mm3 (150-400); RDW Coefficient Variation 12.4 % (11.7-14.2); RDW Standard Deviation 42.4 fL (35.1-46.3); Red Blood Cell Count 3.88 M/mm3 (4.30-5.90); White Blood Cell Count 20.92 K/mm3 (4.00-11.30)
[2019-09-03 02:26] LABS: Source, Urine Clean Catch
[2019-09-03 02:31] LABS: Bilirubin, Urine Neg (Neg); Blood, Urine 3+ (Neg); Glucose Qualitative, Urine Neg (Neg); Ketones, Urine Neg (Neg); Leukocyte Esterase, Urine 3+ (Neg); Nitrite, Urine Pos (Neg); Protein, Urine Neg (Neg); Specific Gravity, Urine 1.015 (1.003-1.022); Urobilinogen, Urine NORM (Normal)
[2019-09-03 02:42] LABS: Appearance, Urine Hazy (Clear); Color, Urine Yellow (P-Yellow)
[2019-09-03 02:43] LABS: Bacteria Many /hpf; Red Blood Cells, Urine 0-2 /hpf (0-2); Squamous Epithelial Cells Not Seen /hpf (Few); White Blood Cells, Urine 50-100 /hpf (0-5)
[2019-09-03] MEDS ORDERED: HYDRA25 PO (05:20)
--- NOTE | 2019-09-03 05:35 | NUR ---
ASSUMED CARE OF PATIENT AT APPROXIMATELY 0440 FROM ED AMELIE EPSTEIN. PATIENT ARRIVED TO UNIT VIA STRETCHER; TRANSFER VIA MAX STAFF FROM ED TO PCU STRETCHER WITH SLIDE SHEET. PATIENT ALERT AND ORIENTED X4; WEAKNESS; TREMOR NOTED. PATIENT DENIES PAIN, NUMBNESS, TINGLING, DIZZINESS AND NAUSEA. PATIENT REPORTS HE IS COLD. PATIENT INCONTINENT OF URINE AND STOOL UPON ARRIVAL TO UNIT; ATTENDS CHANGED AND GOWN. ADMISSION COMPLETE; IVF FLUIDS STARTED PER ORDER. ST ON TELE; OXYGEN SATURATION ABOVE 90% ON ROOM AIR; CPAP SET UP BY RT. PATIENT REPORTS WENT HOME. SCDS PLACED. PATIENT CURRENTLY RESTING IN BED; CALL LIGHT IN REACH; BED IN LOWEST POSISITON; BED ALARM ON; WILL CONTINUE TO MONITOR AND ASSESS UNTIL END OF SHIFT.
[2019-09-03 06:19] LABS: Thyroid Stimulating Hormone 0.935 uIU/mL (0.360-4.800)
[2019-09-03 06:46] LABS: CPK Creatine Kinase 46 U/L (39-308)
--- NOTE | 2019-09-03 09:40 | NUR ---
Eric is alert, oriented to person, place, ongoing events, and following directions. He seemed frustrated and surprised this morning when he was unable to recall his birthdate. With some prompting, he did recall that his birthday is in the summer, and that it is now jaylen. Stated that he is "74 or 75 years old" and was able to state the current year as 2018, but could not recall the exact date. He is able to recall that he was admitted to the hospital, and events leading up to his admission. Able to talk about his currently living condition, at home, with his . States that his tremors are baseline for him, but that the urinary and fecal incontinence are new since "this episode" of last night's hospital admission. Heart rate is tachycardic, 114-120 at rest this morning, up to 140 with standing at the side of the bed while working with physical therapy. Tolerated this level of activity without any dyspnea nor hypoxia. SpO2 in the mid to high 90% range. Blood pressure stable, noted on chart. Incontinent of stool when he made the effort of standing up on the side of the bed with the physical therapist.
--- NOTE | 2019-09-03 18:09 | NUR ---
PT CARE BEGAN 1330 TODAY. PT HAS BEEN PLEASANT AND TALKATIVE TODAY. DID AMBULATE 2 ASST FROM CHAIR TO BED. TENDED TO LEAN BACK. ABLE TO REFOCUS AND LEAN FORWARD ON FWW. HE SPOKE TO , JOCELIN, ON PHONE THIS ANDREZ. STATES [address] ALEJANDRA TODAY ABOUT H/R. HE RE-ORDERED METOPROLOL STARTED THIS AFT. NO OTHER CONCNERNS AT THIS TIME. BED IN LOW POSITIOIN, CALL LITE IN REACH, BED ALARM ON FOR SAFETY
--- NOTE | 2019-09-03 22:00 | NUR ---
ASSUMED CARE OF PATIENT AT APPROXIMATELY 1905 FROM PETER Lockett RN. PATIENT ALERT AND ORIENTED X4; CONFUSED OFF AND ON; WEAKNESS; TREMOR NOTED; REPORTED BASELINE. PATIENT DENIES PAIN, NUMBNESS, TINGLING, DIZZINESS AND NAUSEA. PATIENT INCONTINENT OF URINE AND STOOL; REPORTS HAS BEEN INCONTINENT FOR PAST 10 DAYS; BEDBATH GIVEN BY SUSTAINABLE DEVELOPMENT POLICY ANALYST; ATTENDS CHANGED AND GOWN. IVF FLUIDS STARTED PER ORDER. ST ON TELE; OXYGEN SATURATION ABOVE 90% ON ROOM AIR OR ON CPAP. SCD IN PLACE. PATIENT CURRENTLY RESTING IN BED; CALL LIGHT IN REACH; BED IN LOWEST POSISITON; BED ALARM ON; WILL CONTINUE TO MONITOR AND ASSESS UNTIL END OF SHIFT.
[2019-09-04 04:22] LABS: BASOPHILS ABSOLUTE AUTO 0.09 K/mm3 (0.00-0.23); BASOPHILS PERCENT AUTO 1 % (0-2); EOSINOPHILS ABSOLUTE AUTO 0.06 K/mm3 (0.00-0.68); EOSINOPHILS PERCENT AUTO 0 % (0-6); Hematocrit 30.5 % (37.0-53.0); Hemoglobin 9.7 g/dL (13.5-17.5); IMMATURE GRAN ABSOLUTE AUTO 0.16 K/mm3 (0.00-0.10); IMMATURE GRAN PERCENT AUTO 1 % (0-1); LYMPHOCYTES ABSOLUTE AUTO 0.88 K/mm3 (0.84-5.20); LYMPHOCYTES PERCENT AUTO 4 % (21-46); MONOCYTES ABSOLUTE AUTO 1.22 K/mm3 (0.16-1.47); MONOCYTES PERCENT AUTO 6 % (4-13); Mean Corpuscular HGB 30.2 pg (26.0-34.0); Mean Corpuscular HGB Conc 31.8 g/dL (31.5-36.5); Mean Corpuscular Volume 95 fL (80-100); Mean Platelet Volume 11.7 fL (9.1-12.4); NEUTROPHILS ABSOLUTE AUTO 17.55 K/mm3 (1.96-9.15); NEUTROPHILS PERCENT AUTO 88 % (41-73); Platelet Count 200 K/mm3 (150-400); RDW Coefficient Variation 12.7 % (11.7-14.2); RDW Standard Deviation 44.3 fL (35.1-46.3); Red Blood Cell Count 3.21 M/mm3 (4.30-5.90); White Blood Cell Count 19.96 K/mm3 (4.00-11.30)
[2019-09-04 04:54] LABS: Albumin, Blood 2.5 g/dL (3.4-5.0); Albumin/Globulin Ratio 0.7 (0.8-1.8); Bilirubin, Total 0.5 mg/dL (0.1-1.0); Bun/Creatinine Ratio 15.5 (12.0-20.0); Calcium, Blood 8.2 mg/dL (8.5-10.1); Creatinine, Blood 1.74 mg/dL (0.60-1.20); Globulin, Blood 3.7 g/dL (2.2-4.0); Magnesium, Blood 1.9 mg/dL (1.6-2.4); Phosphorus, Blood 3.3 mg/dL (2.5-4.9); Total Protein, Blood 6.2 g/dL (6.4-8.2)
--- NOTE | 2019-09-04 06:37 | NUR ---
PATIENT SLEPT ABOUT NINE HOURS LAST NIGHT. VSS. PATIENT REFUSED TO WEAR CPAP LONG-TERM THROUGH THE NIGHT. WILL CONTINUE TO MONITOR AND ASSESS UNTIL END OF SHIFT.
--- NOTE | 2019-09-04 08:30 | NUR ---
PT PLEASANT HAS BEEN SLEEPING. DOES AWAKEN WHEN TALKED TO. DENIES PAIN. A/O. TELLS DATE 1991. PRESIDENT IS JUAN MIGUEL. KNOWS AT HOSP. FAMILY, H/R REG, NO MURMER NOTED. PER TELE. S TACH AT 106. LUNGS CLEAR, RESP EASY, UNLABORED. ON R.A. BT X4 LAST BM TODAY. VOIDS INCONT, IN ATTENDS. 1 ASST TO BATHROOM. AT BEDSIDE AT TIMES. BED IN LOW POSITIOIN,C ALL LITE IN REACH, BED ALARM ON FOR KEEGAN
--- NOTE | 2019-09-04 19:53 | NUR ---
PT PLEASANT TODAY. DID GET TO BATHROOM 1 ASST WITH FWW AT LEAST TWICE TODAY. DR ALEJANDRA DID INCREASE ANTIBIOTICS TODAY. WIVE WAS IN TO SEE HIM TODDAY. SHE DID TALK TO DR ALEJANDRA ON PHONE WHILE IN ROOM. NO OTHER CONCERNS AT THIS TIME. BED IN LOW POSITION, CALL LITE IN REACH, BED ALALRM ONFOR SAFETY
[2019-09-04] MEDS ORDERED: MELATONIN5 M1 PO (20:20)
--- NOTE | 2019-09-04 20:48 | NUR ---
ASSUMED CARE OF PATIENT AT APPROXIMATELY 1910 FROM PETER Lockett RN. PATIENT ALERT AND ORIENTED X4; CONFUSED OFF AND ON; WEAKNESS; TREMOR NOTED; REPORTED BASELINE; 1 ASSIST WITH FWW TO BATHROOM; MORE STRENGTH TODAY COMPARED TO YESTERDAY. PATIENT DENIES PAIN, NUMBNESS, TINGLING, DIZZINESS AND NAUSEA. PATIENT REQUESTED MELATONIN TONIGHT; REPORTS TAKES AT HOME; CALLED DR. DOUGHERTY; ORDERS RECIEVED. IVF CONTINUE PER ORDER. NSR ON TELE; OXYGEN SATURATION ABOVE 90% ON ROOM AIR OR ON CPAP. SCD IN PLACE. PATIENT CURRENTLY RESTING IN BED; CALL LIGHT IN REACH; BED IN LOWEST POSISITON; BED ALARM ON; WILL CONTINUE TO MONITOR AND ASSESS UNTIL END OF SHIFT.
[2019-09-05 03:22] LABS: BASOPHILS ABSOLUTE AUTO 0.06 K/mm3 (0.00-0.23); BASOPHILS PERCENT AUTO 1 % (0-2); EOSINOPHILS ABSOLUTE AUTO 0.12 K/mm3 (0.00-0.68); EOSINOPHILS PERCENT AUTO 1 % (0-6); Hematocrit 31.5 % (37.0-53.0); Hemoglobin 10.1 g/dL (13.5-17.5); IMMATURE GRAN ABSOLUTE AUTO 0.06 K/mm3 (0.00-0.10); IMMATURE GRAN PERCENT AUTO 1 % (0-1); LYMPHOCYTES ABSOLUTE AUTO 0.64 K/mm3 (0.84-5.20); LYMPHOCYTES PERCENT AUTO 6 % (21-46); MONOCYTES ABSOLUTE AUTO 0.67 K/mm3 (0.16-1.47); MONOCYTES PERCENT AUTO 6 % (4-13); Mean Corpuscular HGB 30.2 pg (26.0-34.0); Mean Corpuscular HGB Conc 32.1 g/dL (31.5-36.5); Mean Corpuscular Volume 94 fL (80-100); Mean Platelet Volume 11.2 fL (9.1-12.4); NEUTROPHILS ABSOLUTE AUTO 8.96 K/mm3 (1.96-9.15); NEUTROPHILS PERCENT AUTO 85 % (41-73); Platelet Count 186 K/mm3 (150-400); RDW Coefficient Variation 12.5 % (11.7-14.2); Red Blood Cell Count 3.34 M/mm3 (4.30-5.90); White Blood Cell Count 10.51 K/mm3 (4.00-11.30)
[2019-09-05 03:40] LABS: Bun/Creatinine Ratio 14.6 (12.0-20.0); Calcium, Blood 8.4 mg/dL (8.5-10.1); Creatinine, Blood 1.44 mg/dL (0.60-1.20)
--- NOTE | 2019-09-05 06:04 | NUR ---
PATIENT UP TO BATHROOM WITH ONE ASSIST; WORE CPAP MOST OF THE NIGHT. VSS. WILL CONTINUE TO MONITOR AND ASSESS UNTIL END OF SHIFT.
--- NOTE | 2019-09-05 07:24 | NUR ---
AM NOTE. ASSUMED CARE OF PT APROX 0700, PT IS A&Ox4 AT THIS TIME. PT WAS ADMITTED SEPSIS/UTI. PER NOC RN REPORT PT HAS GREATLY IMPROVED SINCE ADMIT. PT DENIES ANY CHEST PAIN/PRESSURE, N/V OR SOB AT THIS TIME. PT'S VS STABLE, NO EDEMA NOTED ON ASSESSMENT. L/S CLEAR DIM IN THE BASES. PT IS ON RA. BT PRESENT AND NORMOACTIVE, ABD SOFT AND NONTENDER TO PALP. PER NOC SHIFT RN REPORT PT HAS BEEN GETTING UP AND WALKING TO THE BATHROOM W/FWW WITH MINIMAL EPISODES OF INCONT. PT STATED HE IS VERY ANXIOUS TO D/C HOME. CALL LIGHT IN REACH, BED IS LOCKED AND LOW WILL CONTINUE TO MONITOR.
--- NOTE | 2019-09-05 08:00 | NUR ---
PT UPDATE... PT ATE APROX 50% OF HIS BREAKFAST, PT THREW IT ALL UP, PT WAS MEDICATED PER EMAR. WILL MONITOR
--- NOTE | 2019-09-05 15:38 | NUR ---
RECEIEVED REPORT FROM HOT HEAD MACHINE OPERATORSACHI. PATIENT TO TRANSFER UP TO ROOM 310.
--- NOTE | 2019-09-05 15:56 | NUR ---
PT TRANSFER. PT WAS TRANSFERED TO MEDICAL FLOOR PT'S VS STABLE. REPORT WAS GIVEN TO MEDICAL FLOOR RN. ALL OF PT'S BELONGINGS PACKED AND SENT WITH THE PT. PT'S CALLED AND NOTIFIED OF ROOM/UNIT CHANGE.
--- NOTE | 2019-09-05 16:32 | NUR ---
PATIENT ARRIVED TO ROOM 310 RIGHT AT 1600. TRANSFERED FROM W/C TO BED WITH SBA. DENIES PAIN AND DISCOMFORT. PATIENT SETTLED IN ROOM AND UNDERSTANDS HOW CALL LIGHT/REMOTE WORKS.
--- NOTE | 2019-09-06 05:30 | NUR ---
SHIFT SUMMARY PT HAS RESTED FOR MOST OF THE NIGHT. PT IRRITABLE AT TIMES. HE REQUESTED MELATONIN FOR SLEEP, HOWEVER THIS WAS NOT ORDERED DURING DAYSHIFT. I NOTIFIED PT THAT I WOULD CALL THE DR TO GET THAT ORDERED FOR HIM. I ASKED SOLAR INSTALLATION CREW SUPERVISOR AROUND 2029 IF IT WAS OK TO CALL AT THIS TIME TO GET MELATONIN ORDERED. SHE STATES THAT WE WOULD HAVE TO CALL DURING NON URGENT TIME 2144 TO ORDER. I WAS ABLE TO CALL SHORTLY AFTER 2099, AROUND 2109 TO ORDER. PT WAS FRUSTRATED THAT HE GOT HIS MELATONIN AT THIS TIME, BUT I EXPLAINED TO HIM OUR POLICY, AND APOLOGIZED THAT WE COULD NOT GET IT TO HIM ANY SOONER THAN WHAT WAS ALLOWED. PT HAS BEEN AGREABLE SINCE THAT INCIDENT, AND HAS RESTED MOST OF THE NIGHT WITHOUT INCIDENT. VITALS HAVE BEEN STABLE. SATS WNL ON RA. CPAP AT NOC. IVF INFUSING ORDERED. POSSIBLE DC TODAY. NO ACUTE CHANGES TO REPORT IN ASSESSMENT. BED IN LOWEST POSITION, CALL LIGHT WITHIN REACH. WILL CONTINUE TO MONITOR AND REPORT TO ONCOMING RN.
[2019-09-06] MEDS ORDERED: ACET325 PO (12:46)
--- NOTE | 2019-09-06 13:09 | NUR ---
DISCHARGE NOTE PT DISCHARGED VIA W/C POV WITH SPOUSE AND IN NO ACUTE DISTRESS. PT AND FAMILY VERBALIZED UNDERSTANDING OF MEDICATION AND DISCHARGE INSTRUCTIONS. [facility] TO CALL PT TO SET UP APPT WITH PT FOR FOLLOW UP. ALL BELONGINGS SENT HOME WITH FAMILY AT TIME OF DISCHARGE.
--- NOTE | 2019-09-06 17:06 | NUR ---
Mr. Chakraborty was very happy to be going home today. He expressed gratitude for the care he has recieved while hospitalized. He allowed me to pray for continued healing.
== END 2019-09-06 13:05 | disposition home or self-care (01) | DRG 872 ==
LOC: ER 01:15 → PCU 04:38 → MEDS 09-05 15:57
PROVIDERS: Emergency Medicine; Hospitalist; ADMIT Family Medicine
DX: A41.51 Sepsis due to Escherichia coli [E. coli] (principal); N39.0 Urinary tract infection, site not specified; N17.9 Acute kidney failure, unspecified; I13.0 Hypertensive heart and chronic kidney disease with heart failure and stage 1 through stage 4 chronic kidney disease, or unspecified chronic kidney disease; R65.20 Severe sepsis without septic shock; N18.3 Chronic kidney disease, stage 3 (moderate); D63.1 Anemia in chronic kidney disease; E86.9 Volume depletion, unspecified; E11.22 Type 2 diabetes mellitus with diabetic chronic kidney disease; G20 Parkinson's disease; R62.7 Adult failure to thrive; Z66 Do not resuscitate; I50.9 Heart failure, unspecified; N40.0 Benign prostatic hyperplasia without lower urinary tract symptoms; G47.33 Obstructive sleep apnea (adult) (pediatric); F41.9 Anxiety disorder, unspecified; F32.9 Major depressive disorder, single episode, unspecified; E83.42 Hypomagnesemia; I95.9 Hypotension, unspecified; G43.909 Migraine, unspecified, not intractable, without status migrainosus; E78.1 Pure hyperglyceridemia; E86.0 Dehydration; I25.10 Atherosclerotic heart disease of native coronary artery without angina pectoris; Z86.73 Personal history of transient ischemic attack (TIA), and cerebral infarction without residual deficits; Z79.01 Long term (current) use of anticoagulants; Z79.4 Long term (current) use of insulin; Z79.899 Other long term (current) drug therapy; Z87.891 Personal history of nicotine dependence
CPT/HCPCS: 36415; 51798; 70450; 71046; 76770; 80048; 80053; 81001; 82550; 82947; 83605; 83735; 83880; 84100; 84145; 84443; 84484; 85025; 87040; 87077; 87086; 87186; 93005; 93010; 93306; 94640; 94660; 94762; 96361; 96365; 97110; 97162; 97166; 97530; 99285-25; J0696; J1815; J1956; J2405; J3475; J7030

== ENCOUNTER → 2019-09-13 | Outpatient (CLI) | payer MEDICARE, BC ==
[~2019-09-13] MED LIST changes: +ACET325 PO; +MELATONIN5 M1 PO; +SITA100T2 PO
[2019-09-13 16:11] LABS: Bilirubin, Urine Neg (Neg); Blood, Urine 3+ (Neg); Glucose Qualitative, Urine Neg (Neg); Ketones, Urine Neg (Neg); Leukocyte Esterase, Urine 1+ (Neg); Nitrite, Urine Neg (Neg); Protein, Urine Neg (Neg); Urobilinogen, Urine NORM (Normal)
[2019-09-13 16:29] LABS: Appearance, Urine Clear (Clear); Color, Urine Pale Yellow (P-Yellow)
[2019-09-13 16:30] LABS: Bacteria Few /hpf; Squamous Epithelial Cells Few /hpf (Few); White Blood Cells, Urine 0-2 /hpf (0-5)
== END | disposition home or self-care (01) ==
LOC: LAB 15:42 → LAB SHORT 15:42
PROVIDERS: Nurse Practitioner Family
DX: N39.0 Urinary tract infection, site not specified (principal)
CPT/HCPCS: 81001; 87077; 87086; 87186

== ENCOUNTER 2019-10-23 16:22 | Emergency (ER) | payer MEDICARE, BC ==
[~2019-10-23] VITALS: Ht 180.3 cm; Wt 81.7 kg
[~2019-10-23 16:22] MED LIST changes: -SITA100T2 PO
[2019-10-23] MEDS ORDERED: LISI20 PO (16:50)
[2019-10-23] MEDS ORDERED: SPIR25 PO (16:52)
[2019-10-23] MEDS ORDERED: METO50ER PO (16:52)
[2019-10-23] MEDS ORDERED: SITA100T2 PO (16:53)
[2019-10-23 16:55] LABS: BASOPHILS ABSOLUTE AUTO 0.11 K/mm3 (0.00-0.23); BASOPHILS PERCENT AUTO 2 % (0-2); EOSINOPHILS ABSOLUTE AUTO 0.05 K/mm3 (0.00-0.68); EOSINOPHILS PERCENT AUTO 1 % (0-6); Hematocrit 43.1 % (37.0-53.0); Hemoglobin 14.2 g/dL (13.5-17.5); IMMATURE GRAN ABSOLUTE AUTO 0.04 K/mm3 (0.00-0.10); IMMATURE GRAN PERCENT AUTO 1 % (0-1); LYMPHOCYTES ABSOLUTE AUTO 0.73 K/mm3 (0.84-5.20); LYMPHOCYTES PERCENT AUTO 10 % (21-46); MONOCYTES ABSOLUTE AUTO 0.68 K/mm3 (0.16-1.47); MONOCYTES PERCENT AUTO 9 % (4-13); Mean Corpuscular HGB 29.5 pg (26.0-34.0); Mean Corpuscular HGB Conc 32.9 g/dL (31.5-36.5); Mean Corpuscular Volume 89 fL (80-100); Mean Platelet Volume 11.4 fL (9.1-12.4); NEUTROPHILS ABSOLUTE AUTO 5.87 K/mm3 (1.96-9.15); NEUTROPHILS PERCENT AUTO 78 % (41-73); Platelet Count 272 K/mm3 (150-400); RDW Coefficient Variation 13.8 % (11.7-14.2); RDW Standard Deviation 45.1 fL (35.1-46.3); Red Blood Cell Count 4.82 M/mm3 (4.30-5.90); White Blood Cell Count 7.48 K/mm3 (4.00-11.30)
[2019-10-23 17:11] LABS: Albumin/Globulin Ratio 0.8 (0.8-1.8); Bilirubin, Total 0.4 mg/dL (0.1-1.0); Bun/Creatinine Ratio 17.4 (12.0-20.0); Calcium, Blood 9.5 mg/dL (8.5-10.1); Creatinine, Blood 1.61 mg/dL (0.60-1.20); Globulin, Blood 4.8 g/dL (2.2-4.0); International Normalized Ratio 1.16; Potassium, Blood 4.3 mmol/L (3.5-5.5); Prothrombin Time Results 12.1 Sec (9.7-11.5); Total Protein, Blood 8.8 g/dL (6.4-8.2)
== END 2019-10-23 18:34 | disposition home or self-care (01) ==
LOC: ER 16:22
PROVIDERS: Physician Assistant
DX: R53.1 Weakness (principal); I11.0 Hypertensive heart disease with heart failure; I50.9 Heart failure, unspecified; E11.9 Type 2 diabetes mellitus without complications; I48.91 Unspecified atrial fibrillation; G43.909 Migraine, unspecified, not intractable, without status migrainosus; F41.9 Anxiety disorder, unspecified; F32.9 Major depressive disorder, single episode, unspecified; G47.33 Obstructive sleep apnea (adult) (pediatric); Z91.048 Other nonmedicinal substance allergy status; Z91.040 Latex allergy status; Z88.8 Allergy status to other drugs, medicaments and biological substances; Z79.899 Other long term (current) drug therapy; Z79.4 Long term (current) use of insulin; Z79.01 Long term (current) use of anticoagulants; Z86.73 Personal history of transient ischemic attack (TIA), and cerebral infarction without residual deficits; Z99.89 Dependence on other enabling machines and devices; Z87.891 Personal history of nicotine dependence
CPT/HCPCS: 36415; 70450; 80053; 82947; 85025; 85610; 93005; 93010; 96374; 99285-25; J2405

== ENCOUNTER → 2019-11-19 | Outpatient (CLI) | payer MEDICARE, BC ==
[~2019-11-19] MED LIST changes: +SITA100T2 PO
[2019-11-19 11:41] LABS: Source, Urine Clean Catch
[2019-11-19 15:45] LABS: Bilirubin, Urine Neg (Neg); Blood, Urine Neg (Neg); Glucose Qualitative, Urine Neg (Neg); Ketones, Urine Neg (Neg); Leukocyte Esterase, Urine Neg (Neg); Nitrite, Urine Neg (Neg); Protein, Urine Neg (Neg); Urobilinogen, Urine NORM (Normal)
[2019-11-19 15:59] LABS: Appearance, Urine Hazy (Clear); Color, Urine Yellow (P-Yellow)
[2019-11-19 16:01] LABS: Calcium Oxalate Crystals Many /hpf; Red Blood Cells, Urine Not Seen /hpf (0-2); White Blood Cells, Urine Not Seen /hpf (0-5)
[2019-11-19 16:02] LABS: Bacteria Few /hpf; Squamous Epithelial Cells Not Seen /hpf (Few)
== END | disposition home or self-care (01) ==
LOC: LAB SHORT 11:35 → OLS 11:35 → LAB FUT 11-18 15:45
PROVIDERS: Urology
DX: N30.01 Acute cystitis with hematuria (principal)
CPT/HCPCS: 81001; 87086

== ENCOUNTER → 2020-02-20 | Outpatient (CLI) | payer MEDICARE, BC | END | disposition home or self-care (01) | LOC: PLD 09:47 → LAB SHORT 09:47 | DX: D22.5 Melanocytic nevi of trunk (principal); C44.519 Basal cell carcinoma of skin of other part of trunk; C44.612 Basal cell carcinoma of skin of right upper limb, including shoulder | CPT/HCPCS: 88305 ==

== ENCOUNTER 2020-03-21 15:33 | Observation (INO) | payer MEDICARE, BC ==
[~2020-03-21] VITALS: Ht 180.3 cm; Wt 79.4 kg
[~2020-03-21 15:33] MED LIST changes: -ATORVASTATIN CA40 MG PO; -Abilify2 MG PO; -DILTIAZEM 24HR180 M1 PO; -FINA5 PO; -FURO40 PO; -Humalog100 UNIT/1 SC; -INSULANPEN SC; -OMEPRAZOLE20 MG PO; -ONDA4 PO; -POTA10T PO; -SITA100T2 PO; -TAMS.4ER PO; -XARELTO15 MG PO
[2020-03-21 16:15] LABS: BASOPHILS ABSOLUTE AUTO 0.09 K/mm3 (0.00-0.23); BASOPHILS PERCENT AUTO 1 % (0-2); EOSINOPHILS ABSOLUTE AUTO 0.11 K/mm3 (0.00-0.68); EOSINOPHILS PERCENT AUTO 2 % (0-6); Hemoglobin 11.9 g/dL (13.5-17.5); IMMATURE GRAN ABSOLUTE AUTO 0.05 K/mm3 (0.00-0.10); IMMATURE GRAN PERCENT AUTO 1 % (0-1); LYMPHOCYTES ABSOLUTE AUTO 0.83 K/mm3 (0.84-5.20); LYMPHOCYTES PERCENT AUTO 11 % (21-46); MONOCYTES ABSOLUTE AUTO 0.77 K/mm3 (0.16-1.47); MONOCYTES PERCENT AUTO 10 % (4-13); Mean Corpuscular HGB 29.2 pg (26.0-34.0); Mean Corpuscular HGB Conc 32.2 g/dL (31.5-36.5); Mean Corpuscular Volume 91 fL (80-100); Mean Platelet Volume 11.4 fL (9.1-12.4); NEUTROPHILS ABSOLUTE AUTO 5.53 K/mm3 (1.96-9.15); NEUTROPHILS PERCENT AUTO 75 % (41-73); Platelet Count 246 K/mm3 (150-400); RDW Coefficient Variation 13.7 % (11.7-14.2); Red Blood Cell Count 4.08 M/mm3 (4.30-5.90); White Blood Cell Count 7.38 K/mm3 (4.00-11.30)
[2020-03-21 16:42] LABS: Alanine Aminotransfer (ALT/SGP 36 U/L (12-78); Albumin, Blood 2.8 g/dL (3.4-5.0); Albumin/Globulin Ratio 0.8 (0.8-1.8); Alk Phos 88 U/L (50-136); Anion Gap 7 mmol/L (6-16); Aspartate Aminotrans (AST/SGOT 22 U/L (12-37); Bilirubin, Total 0.4 mg/dL (0.1-1.0); Blood Urea Nitrogen 17 mg/dL (8-24); Bun/Creatinine Ratio 10.1 (12.0-20.0); CO2, Blood 23 mmol/L (21-32); Calcium, Blood 7.1 mg/dL (8.5-10.1); Chloride, Blood 111 mmol/L (98-108); Creatinine, Blood 1.69 mg/dL (0.60-1.20); Globulin, Blood 3.6 g/dL (2.2-4.0); Glomerular Filtration Rate 43 (60-); Glucose, Blood 145 mg/dL (70-99); Potassium, Blood 3.9 mmol/L (3.5-5.5); Sodium, Blood 141 mmol/L (136-145); Total Protein, Blood 6.4 g/dL (6.4-8.2)
[2020-03-21 16:43] LABS: Troponin I <0.015 ng/mL (0.000-0.040)
[2020-03-21] MEDS ORDERED: OMEPRAZOLE20 MG PO (17:12)
[2020-03-21] MEDS ORDERED: DILTIAZEM 24HR180 M1 PO (17:12)
[2020-03-21] MEDS ORDERED: ATORVASTATIN CA40 MG PO (17:12)
[2020-03-21] MEDS ORDERED: FINA5 PO (17:12)
[2020-03-21] MEDS ORDERED: XARELTO20 MG PO (17:13)
[2020-03-21] MEDS ORDERED: SPIR25 PO (17:13)
[2020-03-21] MEDS ORDERED: Glimepiride2 MG PO (17:14)
[2020-03-21] MEDS ORDERED: METO25ER PO (17:15)
[2020-03-21] MEDS ORDERED: FURO20 PO (17:16)
[2020-03-21] MEDS ORDERED: Abilify2 MG PO (17:17)
[2020-03-21] MEDS ORDERED: HORIZANT300 MG PO (17:18)
[2020-03-21] MEDS ORDERED: POTA10T PO (17:20)
[2020-03-21] MEDS ORDERED: SITA50T2 PO (17:20)
[2020-03-21] MEDS ORDERED: VENL150ER PO (17:21)
[2020-03-21] MEDS ORDERED: BUPR100ER PO (17:36)
[2020-03-21] MEDS ORDERED: TAMS.4ER PO (17:47)
[2020-03-21] MEDS ORDERED: INSULANPEN SC (17:48)
[2020-03-21] MEDS ORDERED: ONDA4ODT SL (17:48)
[2020-03-21] MEDS ORDERED: Humalog100 UNIT/1 SC (17:49)
[2020-03-21 21:51] LABS: Source, Urine Voided
[2020-03-21 21:55] LABS: Bilirubin, Urine Neg (Neg); Blood, Urine 4+ (Neg); Glucose Qualitative, Urine Neg (Neg); Ketones, Urine Neg (Neg); Leukocyte Esterase, Urine Neg (Neg); Nitrite, Urine Neg (Neg); Protein, Urine Neg (Neg); Urobilinogen, Urine NORM (Normal)
[2020-03-21 21:56] LABS: Appearance, Urine Clear (Clear); Color, Urine Yellow (P-Yellow)
[2020-03-21 22:01] LABS: Bacteria Not Seen /hpf; Red Blood Cells, Urine 50-100 /hpf (0-2); Squamous Epithelial Cells Few /hpf (Few); White Blood Cells, Urine Rare /hpf (0-5)
[2020-03-22 02:26] LABS: BASOPHILS ABSOLUTE AUTO 0.06 K/mm3 (0.00-0.23); BASOPHILS PERCENT AUTO 1 % (0-2); EOSINOPHILS ABSOLUTE AUTO 0.19 K/mm3 (0.00-0.68); EOSINOPHILS PERCENT AUTO 2 % (0-6); Hematocrit 36.4 % (37.0-53.0); Hemoglobin 11.8 g/dL (13.5-17.5); IMMATURE GRAN ABSOLUTE AUTO 0.04 K/mm3 (0.00-0.10); IMMATURE GRAN PERCENT AUTO 0 % (0-1); LYMPHOCYTES PERCENT AUTO 12 % (21-46); MONOCYTES ABSOLUTE AUTO 0.93 K/mm3 (0.16-1.47); MONOCYTES PERCENT AUTO 10 % (4-13); Mean Corpuscular HGB 29.3 pg (26.0-34.0); Mean Corpuscular HGB Conc 32.4 g/dL (31.5-36.5); Mean Corpuscular Volume 90 fL (80-100); Mean Platelet Volume 10.4 fL (9.1-12.4); NEUTROPHILS ABSOLUTE AUTO 7.18 K/mm3 (1.96-9.15); NEUTROPHILS PERCENT AUTO 76 % (41-73); Platelet Count 218 K/mm3 (150-400); RDW Coefficient Variation 13.7 % (11.7-14.2); RDW Standard Deviation 45.3 fL (35.1-46.3); Red Blood Cell Count 4.03 M/mm3 (4.30-5.90)
[2020-03-22 02:47] LABS: Alanine Aminotransfer (ALT/SGP 41 U/L (12-78); Albumin, Blood 2.9 g/dL (3.4-5.0); Albumin/Globulin Ratio 0.8 (0.8-1.8); Alk Phos 92 U/L (50-136); Anion Gap 7 mmol/L (6-16); Aspartate Aminotrans (AST/SGOT 27 U/L (12-37); Bilirubin, Total 0.4 mg/dL (0.1-1.0); Blood Urea Nitrogen 17 mg/dL (8-24); Bun/Creatinine Ratio 12.2 (12.0-20.0); CO2, Blood 23 mmol/L (21-32); Calcium, Blood 7.4 mg/dL (8.5-10.1); Chloride, Blood 111 mmol/L (98-108); Creatinine, Blood 1.39 mg/dL (0.60-1.20); Globulin, Blood 3.6 g/dL (2.2-4.0); Glomerular Filtration Rate 53 (60-); Glucose, Blood 144 mg/dL (70-99); Potassium, Blood 3.9 mmol/L (3.5-5.5); Sodium, Blood 141 mmol/L (136-145); Total Protein, Blood 6.5 g/dL (6.4-8.2); Troponin I <0.015 ng/mL (0.000-0.040)
--- NOTE | 2020-03-22 02:50 | NUR ---
both Humalog and Lantus held last night due to CBG of 88. Juice and a No sugar added pudding (patient request) given at bedtime.
--- NOTE | 2020-03-22 05:04 | NUR ---
LEGAL INTERNSHIP SUMMARY Slept well. Telemetry: SR 70's. No signs or complaints of lightheadedness when patient would stand to void in urinal. VSS without any further episodes of Hypotension. Patient looking forward to going home today. No chest pain, SOB or discomfort overnight.
--- NOTE | 2020-03-22 10:56 | NUR ---
REFUSED CARE WENT TO CHECK ORTHOSTATICS ON PT REQUESTED BY DR. FLEMING, NOTICED PT HAD SOILED PANTS. WHEN ASKING TO CHANGE AND CLEAN UP, PT REFUSED AND STATED, "I WILL WASH THEM WHEN I GET HOME." -IN TRAINING FOR FILM DEVELOPING MACHINE OPERATOR 2
--- NOTE | 2020-03-22 12:56 | NUR ---
DISCHARGE DISCHARGE MEDICATIONS AND INSTRUCTIONS EXPLAINED TO PATIENT AND PATIENT'S . THEY STATED UNDERSTANDING. [facility] TO CONTACT PATIENT AT HOME TO SCHEDULE FOLLOW UP APPOINTMENT. IV REMOVED WITHOUT ISSUE. BELONGINGS WITH PATIENT. PATIENT TRANSFERED TO PRIVATE VEHICLE VIA WHEELCHAIR.
== END 2020-03-22 12:49 | disposition home or self-care (01) ==
LOC: ER 15:33 → MEDS 15:34
PROVIDERS: Emergency Medicine; Nurse Practitioner Acute Care; ADMIT Internal Medicine
DX: I95.9 Hypotension, unspecified (principal); E11.9 Type 2 diabetes mellitus without complications; I11.0 Hypertensive heart disease with heart failure; I50.9 Heart failure, unspecified; F32.9 Major depressive disorder, single episode, unspecified; G47.33 Obstructive sleep apnea (adult) (pediatric); Z79.899 Other long term (current) drug therapy; Z79.4 Long term (current) use of insulin; Z79.01 Long term (current) use of anticoagulants; Z88.8 Allergy status to other drugs, medicaments and biological substances; Z91.040 Latex allergy status; Z87.891 Personal history of nicotine dependence; Z66 Do not resuscitate
CPT/HCPCS: 36415; 71045; 80053; 81001; 82947; 83690; 83880; 84484; 85025; 93005; 93010; 96361; 96374; 99285-25; A9270-GY; G0378; J2405; J7030; J7120

== ENCOUNTER 2021-01-09 10:21 | Emergency (ER) | payer MEDICARE, BC ==
[~2021-01-09] VITALS: Ht 177.8 cm; Wt 90.7 kg
[~2021-01-09 10:21] MED LIST changes: +ATORVASTATIN CA40 MG PO; +Abilify2 MG PO; +DILTIAZEM 24HR180 M1 PO; +FINA5 PO; +Glimepiride2 MG PO; +HORIZANT300 MG PO; +Humalog100 UNIT/1 SC; +INSULANPEN SC; +METO25ER PO; +OMEPRAZOLE20 MG PO; +POTA10T PO; +TAMS.4ER PO
[2021-01-09] MEDS ORDERED: BUPR100ER PO (10:31)
[2021-01-09] MEDS ORDERED: CALC.25 PO (10:31)
[2021-01-09] MEDS ORDERED: DILT-XR120 M2 PO (10:32)
[2021-01-09] MEDS ORDERED: SITA50T2 PO (10:34)
[2021-01-09] MEDS ORDERED: LISI5 PO (10:35)
[2021-01-09 10:50] LABS: BASOPHILS ABSOLUTE AUTO 0.08 K/mm3 (0.00-0.23); BASOPHILS PERCENT AUTO 1 % (0-2); EOSINOPHILS PERCENT AUTO 3 % (0-6); Hematocrit 38.6 % (37.0-53.0); Hemoglobin 12.5 g/dL (13.5-17.5); IMMATURE GRAN ABSOLUTE AUTO 0.03 K/mm3 (0.00-0.10); IMMATURE GRAN PERCENT AUTO 1 % (0-1); LYMPHOCYTES ABSOLUTE AUTO 0.87 K/mm3 (0.84-5.20); LYMPHOCYTES PERCENT AUTO 14 % (21-46); MONOCYTES ABSOLUTE AUTO 0.47 K/mm3 (0.16-1.47); MONOCYTES PERCENT AUTO 7 % (4-13); Mean Corpuscular HGB Conc 32.4 g/dL (31.5-36.5); Mean Corpuscular Volume 86 fL (80-100); Mean Platelet Volume 10.9 fL (9.1-12.4); NEUTROPHILS PERCENT AUTO 74 % (41-73); Platelet Count 211 K/mm3 (150-400); RDW Coefficient Variation 14.8 % (11.7-14.2); RDW Standard Deviation 47.4 fL (35.1-46.3); Red Blood Cell Count 4.47 M/mm3 (4.30-5.90); White Blood Cell Count 6.45 K/mm3 (4.00-11.30)
[2021-01-09 11:01] LABS: Alanine Aminotransfer (ALT/SGP 31 U/L (12-78); Albumin, Blood 3.3 g/dL (3.4-5.0); Albumin/Globulin Ratio 0.8 (0.8-1.8); Alk Phos 96 U/L (50-136); Anion Gap 6 mmol/L (6-16); Aspartate Aminotrans (AST/SGOT 25 U/L (12-37); Bilirubin, Total 0.7 mg/dL (0.1-1.0); Blood Urea Nitrogen 16 mg/dL (8-24); Bun/Creatinine Ratio 14.2 (12.0-20.0); CO2, Blood 26 mmol/L (21-32); Calcium, Blood 8.3 mg/dL (8.5-10.1); Chloride, Blood 107 mmol/L (98-108); Creatinine, Blood 1.13 mg/dL (0.60-1.20); Glomerular Filtration Rate >60 (60-); Glucose, Blood 178 mg/dL (70-99); Sodium, Blood 139 mmol/L (136-145); Total Protein, Blood 7.3 g/dL (6.4-8.2)
[2021-01-09 11:06] LABS: International Normalized Ratio 1.12; Prothrombin Time Results 11.9 Sec (9.7-11.5)
== END 2021-01-09 13:05 | disposition home or self-care (01) ==
LOC: ER 10:21
PROVIDERS: Emergency Medicine
DX: G45.9 Transient cerebral ischemic attack, unspecified (principal); E11.9 Type 2 diabetes mellitus without complications; E78.1 Pure hyperglyceridemia; I11.0 Hypertensive heart disease with heart failure; I50.9 Heart failure, unspecified; I48.91 Unspecified atrial fibrillation; Z91.09 Other allergy status, other than to drugs and biological substances; Z91.040 Latex allergy status; Z79.899 Other long term (current) drug therapy; Z87.891 Personal history of nicotine dependence
CPT/HCPCS: 36415; 70450; 80053; 85025; 85610; 93005; 93010; 99284-25; A9270; Q3014

== ENCOUNTER 2021-05-08 09:58 | Emergency (ER) | payer MEDICARE, BC ==
[~2021-05-08] VITALS: Ht 182.9 cm; Wt 81.7 kg
[~2021-05-08 09:58] MED LIST changes: +CALC.25 PO; +DILT-XR120 M2 PO; +LISI5 PO
[2021-05-08 10:35] LABS: BASOPHILS ABSOLUTE AUTO 0.09 K/mm3 (0.00-0.23); BASOPHILS PERCENT AUTO 1 % (0-2); EOSINOPHILS ABSOLUTE AUTO 0.18 K/mm3 (0.00-0.68); EOSINOPHILS PERCENT AUTO 2 % (0-6); Hematocrit 37.9 % (37.0-53.0); IMMATURE GRAN ABSOLUTE AUTO 0.02 K/mm3 (0.00-0.10); IMMATURE GRAN PERCENT AUTO 0 % (0-1); LYMPHOCYTES ABSOLUTE AUTO 0.85 K/mm3 (0.84-5.20); LYMPHOCYTES PERCENT AUTO 11 % (21-46); MONOCYTES ABSOLUTE AUTO 0.64 K/mm3 (0.16-1.47); MONOCYTES PERCENT AUTO 8 % (4-13); Mean Corpuscular HGB 28.2 pg (26.0-34.0); Mean Corpuscular HGB Conc 31.7 g/dL (31.5-36.5); Mean Corpuscular Volume 89 fL (80-100); Mean Platelet Volume 11.1 fL (9.1-12.4); NEUTROPHILS ABSOLUTE AUTO 6.31 K/mm3 (1.96-9.15); NEUTROPHILS PERCENT AUTO 78 % (41-73); Platelet Count 243 K/mm3 (150-400); RDW Coefficient Variation 13.4 % (11.7-14.2); RDW Standard Deviation 43.9 fL (35.1-46.3); Red Blood Cell Count 4.25 M/mm3 (4.30-5.90); White Blood Cell Count 8.09 K/mm3 (4.00-11.30)
[2021-05-08 10:45] LABS: Alanine Aminotransfer (ALT/SGP 18 U/L (12-78); Albumin, Blood 3.2 g/dL (3.4-5.0); Albumin/Globulin Ratio 0.8 (0.8-1.8); Alk Phos 117 U/L (50-136); Anion Gap 6 mmol/L (6-16); Aspartate Aminotrans (AST/SGOT 18 U/L (12-37); Bilirubin, Total 0.4 mg/dL (0.1-1.0); Blood Urea Nitrogen 13 mg/dL (8-24); Bun/Creatinine Ratio 11.5 (12.0-20.0); CO2, Blood 28 mmol/L (21-32); Calcium, Blood 8.2 mg/dL (8.5-10.1); Chloride, Blood 106 mmol/L (98-108); Creatinine, Blood 1.13 mg/dL (0.60-1.20); Globulin, Blood 4.2 g/dL (2.2-4.0); Glomerular Filtration Rate >60 (60-); Glucose, Blood 97 mg/dL (70-99); Potassium, Blood 3.1 mmol/L (3.5-5.5); Sodium, Blood 140 mmol/L (136-145); Total Protein, Blood 7.4 g/dL (6.4-8.2)
[2021-05-08] MEDS ORDERED: FUROSEMIDE20 MG PO (12:03)
[2021-05-08] MEDS ORDERED: NEURONTIN300 MG PO (12:03)
[2021-05-08] MEDS ORDERED: BASAGLAR K100 UNIT/3 (12:03)
[2021-05-08] MEDS ORDERED: SITA100T2 PO (12:04)
[2021-05-08] MEDS ORDERED: GLIMEPIRIDE1 M2 PO (12:04)
[2021-05-08] MEDS ORDERED: BUPR100ER PO (12:05)
[2021-05-08] MEDS ORDERED: OMEP20ER PO (12:05)
[2021-05-08] MEDS ORDERED: Venlafaxine HC150 MG PO (12:05)
[2021-05-08] MEDS ORDERED: LISI5 PO (12:05)
[2021-05-08] MEDS ORDERED: HUMALOG KW100 UNIT/1 SC (12:06)
[2021-05-08] MEDS ORDERED: TAMSULOSIN HCL0.4 M1 PO (12:06)
[2021-05-08] MEDS ORDERED: DONEPEZIL HCL10 M1 PO (12:06)
[2021-05-08] MEDS ORDERED: FINA5 PO (12:06)
[2021-05-08] MEDS ORDERED: ATOR40TA PO (12:06)
[2021-05-08] MEDS ORDERED: METOPROLOL TART25 MG PO (12:07)
[2021-05-08 16:13] LABS: SARS-Cov-2 (COVID-19) PCR, MMC NEGATIVE (NEGATIVE)
== END 2021-05-08 16:40 ==
LOC: ER 09:58
PROVIDERS: Emergency Medicine; Family Medicine
DX: R41.82 Altered mental status, unspecified (principal); Z79.4 Long term (current) use of insulin; Z79.899 Other long term (current) drug therapy; Z20.822 Contact with and (suspected) exposure to COVID-19
CPT/HCPCS: 36415; 70450; 80053; 85025; 93005; 93010; 99285-25; A9270; U0004

== ENCOUNTER → 2021-06-13 | Outpatient (CLI) | payer MEDICARE, BC ==
[~2021-06-13] MED LIST changes: +ABILIFY MYCITE2 M2 PO; +BASAGLAR K100 UNIT/3; +BENZ1 PO; +DONEPEZIL HCL10 M1 PO; +FUROSEMIDE20 MG PO; +GLIMEPIRIDE1 M2 PO; +HUMALOG KW100 UNIT/1 SC; +METOPROLOL TART25 MG PO; +NEURONTIN300 MG PO; +OMEP20ER PO; +SITA100T2 PO; +TAMSULOSIN HCL0.4 M1 PO; +Venlafaxine HC150 MG PO; +ZOFRAN4 MG PO
== END | disposition home or self-care (01) ==
LOC: LAB SHORT 15:19 → LAB 15:19
DX: L57.0 Actinic keratosis (principal)
CPT/HCPCS: 88305; 88312

== ENCOUNTER 2021-06-19 10:37 | Inpatient (IN) | payer OTHER, MEDICARE, BC ==
[~2021-06-19] VITALS: Ht 180.3 cm; Wt 81.5 kg
[~2021-06-19 10:37] MED LIST changes: -ABILIFY MYCITE2 M2 PO; -BENZ1 PO; -ZOFRAN4 MG PO
[2021-06-19] MEDS ORDERED: ASPI81CH PO (11:38)
[2021-06-19] MEDS ORDERED: ABILIFY MYCITE2 M2 PO (11:38)
[2021-06-19] MEDS ORDERED: BENZ1 PO (11:39)
[2021-06-19] MEDS ORDERED: CALC.25 PO (11:40)
[2021-06-19 11:43] LABS: BASOPHILS ABSOLUTE AUTO 0.06 K/mm3 (0.00-0.23); BASOPHILS PERCENT AUTO 1 % (0-2); EOSINOPHILS ABSOLUTE AUTO 0.04 K/mm3 (0.00-0.68); EOSINOPHILS PERCENT AUTO 0 % (0-6); Hematocrit 36.4 % (37.0-53.0); Hemoglobin 11.6 g/dL (13.5-17.5); IMMATURE GRAN ABSOLUTE AUTO 0.05 K/mm3 (0.00-0.10); IMMATURE GRAN PERCENT AUTO 1 % (0-1); LYMPHOCYTES ABSOLUTE AUTO 0.55 K/mm3 (0.84-5.20); LYMPHOCYTES PERCENT AUTO 6 % (21-46); MONOCYTES ABSOLUTE AUTO 0.54 K/mm3 (0.16-1.47); MONOCYTES PERCENT AUTO 6 % (4-13); Mean Corpuscular HGB Conc 31.9 g/dL (31.5-36.5); Mean Corpuscular Volume 88 fL (80-100); Mean Platelet Volume 11.2 fL (9.1-12.4); NEUTROPHILS ABSOLUTE AUTO 8.62 K/mm3 (1.96-9.15); NEUTROPHILS PERCENT AUTO 87 % (41-73); Platelet Count 226 K/mm3 (150-400); RDW Standard Deviation 44.6 fL (35.1-46.3); Red Blood Cell Count 4.15 M/mm3 (4.30-5.90); White Blood Cell Count 9.86 K/mm3 (4.00-11.30)
[2021-06-19] MEDS ORDERED: ZOFRAN4 MG PO (11:43)
[2021-06-19] MEDS ORDERED: XARELTO20 MG PO (11:44)
[2021-06-19 12:06] LABS: Alanine Aminotransfer (ALT/SGP 22 U/L (12-78); Albumin, Blood 2.9 g/dL (3.4-5.0); Albumin/Globulin Ratio 0.8 (0.8-1.8); Alk Phos 88 U/L (50-136); Anion Gap 6 mmol/L (6-16); Aspartate Aminotrans (AST/SGOT 18 U/L (12-37); Bilirubin, Total 0.4 mg/dL (0.1-1.0); Blood Urea Nitrogen 16 mg/dL (8-24); Bun/Creatinine Ratio 13.9 (12.0-20.0); CO2, Blood 24 mmol/L (21-32); Calcium, Blood 7.4 mg/dL (8.5-10.1); Chloride, Blood 109 mmol/L (98-108); Creatinine, Blood 1.15 mg/dL (0.60-1.20); Globulin, Blood 3.5 g/dL (2.2-4.0); Glomerular Filtration Rate >60 (60-); Glucose, Blood 138 mg/dL (70-99); Potassium, Blood 4.1 mmol/L (3.5-5.5); Sodium, Blood 139 mmol/L (136-145); Total Protein, Blood 6.4 g/dL (6.4-8.2)
[2021-06-19 12:31] LABS: SARS-Cov-2 (COVID-19) PCR, MMC NEGATIVE (NEGATIVE)
[2021-06-19 15:19] LABS: Source, Urine Catheter
[2021-06-19 15:26] LABS: Appearance, Urine Hazy (Clear); Bilirubin, Urine Neg (Neg); Blood, Urine 2+ (Neg); Color, Urine Yellow (P-Yellow); Glucose Qualitative, Urine Neg (Neg); Ketones, Urine Neg (Neg); Leukocyte Esterase, Urine 3+ (Neg); Nitrite, Urine Pos (Neg); Protein, Urine 1+ (Neg); Specific Gravity, Urine 1.015 (1.003-1.022); Urobilinogen, Urine NORM (Normal)
[2021-06-19 15:43] LABS: White Blood Cells, Urine 25-50 /hpf (0-5)
[2021-06-19 15:44] LABS: Bacteria Many /hpf; Squamous Epithelial Cells Few /hpf (Few)
--- NOTE | 2021-06-19 17:15 | NUR ---
Echocardiogram completed.
--- NOTE | 2021-06-19 18:00 | NUR ---
SHIFT SUMMARY PATIENT NEW ADMIT TO UNIT THIS SHIFT. FELL NEAR [facility] AND FRACTURED LEFT HIP. ALERT AND ORIENTED ON ADMIT BUT HAS HISTORY OF STROKE AND MILD DEMENTIA. RESTING BED AT THIS TIME. PAIN CONTROLLED WITH PO PAIN MEDS. NPO AFTER MIDNIGHT. TOLERATING ADA DIET AND FLUIDS. ROUTINE FLUIDS RUNNING. BANEGAS PATENT AND DRAINING. LEFT LEG DENIES N/T, WARM, PEDAL PULSES PRESENT. RT TO SET UP CPAP AND CONTINUOUS SPO2 BEFORE BED TIME. ORDERS IN CHART. PLAN FOR SURGERY TOMORROW 06/20/[address] WOODARD.
[2021-06-20 04:59] LABS: BASOPHILS ABSOLUTE AUTO 0.06 K/mm3 (0.00-0.23); BASOPHILS PERCENT AUTO 1 % (0-2); EOSINOPHILS ABSOLUTE AUTO 0.18 K/mm3 (0.00-0.68); EOSINOPHILS PERCENT AUTO 2 % (0-6); Hematocrit 38.7 % (37.0-53.0); Hemoglobin 12.4 g/dL (13.5-17.5); IMMATURE GRAN ABSOLUTE AUTO 0.03 K/mm3 (0.00-0.10); IMMATURE GRAN PERCENT AUTO 0 % (0-1); LYMPHOCYTES ABSOLUTE AUTO 0.57 K/mm3 (0.84-5.20); LYMPHOCYTES PERCENT AUTO 5 % (21-46); MONOCYTES ABSOLUTE AUTO 0.81 K/mm3 (0.16-1.47); MONOCYTES PERCENT AUTO 8 % (4-13); Mean Corpuscular HGB 28.4 pg (26.0-34.0); Mean Corpuscular Volume 89 fL (80-100); Mean Platelet Volume 11.6 fL (9.1-12.4); NEUTROPHILS ABSOLUTE AUTO 9.17 K/mm3 (1.96-9.15); NEUTROPHILS PERCENT AUTO 85 % (41-73); Platelet Count 223 K/mm3 (150-400); RDW Standard Deviation 45.7 fL (35.1-46.3); Red Blood Cell Count 4.37 M/mm3 (4.30-5.90); White Blood Cell Count 10.82 K/mm3 (4.00-11.30)
[2021-06-20 05:13] LABS: International Normalized Ratio 1.14; Prothrombin Time Results 12.2 Sec (9.7-11.5)
[2021-06-20 05:34] LABS: Alanine Aminotransfer (ALT/SGP 24 U/L (12-78); Albumin/Globulin Ratio 0.8 (0.8-1.8); Alk Phos 98 U/L (50-136); Anion Gap 6 mmol/L (6-16); Aspartate Aminotrans (AST/SGOT 15 U/L (12-37); Bilirubin, Total 0.7 mg/dL (0.1-1.0); Blood Urea Nitrogen 18 mg/dL (8-24); Bun/Creatinine Ratio 15.3 (12.0-20.0); CO2, Blood 27 mmol/L (21-32); Calcium, Blood 8.1 mg/dL (8.5-10.1); Chloride, Blood 105 mmol/L (98-108); Creatinine, Blood 1.18 mg/dL (0.60-1.20); Glomerular Filtration Rate >60 (60-); Glucose, Blood 124 mg/dL (70-99); Potassium, Blood 4.2 mmol/L (3.5-5.5); Sodium, Blood 138 mmol/L (136-145)
--- NOTE | 2021-06-20 06:02 | NUR ---
SHIFT SUMMARY S/P L HIP FX, A/O BUT A LITTLE FORGETFUL AT TIMES, TREMORS PRESENT BUE @ BASELINE, TREMORS APPEAR TO INCREASE WHEN HE RAISES HIS ARMS OFF THE BED, IV PULLED OUT BY PATIENT. L ELBOW FOUND c SMALL AMT OF BLOOD ON IT, APPEARS TO HAVE HIT THE SIDE RAIL, POSSIBLY DUE TO HIS TREMORS, CLEANED AND BANDAGE PLACED. NO OTHER EVENTS THIS SHIFT. CALL LIGHT IN REACH, WILL CTM AND REPORT TO DAY RN.
--- NOTE | 2021-06-20 13:28 | NUR ---
Update 06/20/21: Pt. admitted with L hip fx. post ground level fall in parking lot at [facility]. Prior to the fall, pt. stated that he was able to walk long distances using walker. Pt. lives with . He is a . Surgical intervention with ortho scheduled today at 2pm. Pt. likely to need inpatient PT/OT post hospital discharge. [facility] contacted this am to discuss SNF availability. They do have bed availability for pt. potentially. Advised to fax Nya (info below) in care transition at the [facility] the H&P, PT/OT eval, med list, lab/imaging results, and nursing notes post surgery if pt. agreeable to SNF. Plan to contact patient's to discuss care and follow-up with pt. after surgery as well. PT/OT likely to perform assessment tomorrow. If pt. is agreeable, I will fax initial information with PT/OT notes pending. Plan to continue to follow patient's care and assist with discharge planning/care coordination as needed. Anticipated needs at time of discharge to include: [facility] SNF for PT/OT, hospital F/U appt. with PCP, F/U appt. with ortho, and CCM referral to begin post discharge from SNF.
--- NOTE | 2021-06-20 18:32 | NUR ---
SHIFT SUMMARY PT IS ADMITTED FOR A LEFT CLOSED HIP FX DUE TO A FALL. HE IS SET TO HAVE SURGERY TOMORROW MORNING. HE IS A&O WITH SOME CONFUSION OCCASIOANLLY. BED ALARM IS ON DUE TO HIM TRYING TO GET OUT OF BED FOR DINNER. BANEGAS IN IS PLACE AND IS DRAINING YELLOW COLORED URINE. PT IS TOLERATING FOOD AND DRINK WELL WITHOUT COMPLAINT OF N/V. PT USES CALL LIGHT APPROPRIATELY. WILL CONTINUE TO MONITOR.
[2021-06-21 05:04] LABS: BASOPHILS ABSOLUTE AUTO 0.08 K/mm3 (0.00-0.23); BASOPHILS PERCENT AUTO 1 % (0-2); EOSINOPHILS ABSOLUTE AUTO 0.29 K/mm3 (0.00-0.68); EOSINOPHILS PERCENT AUTO 3 % (0-6); Hematocrit 38.2 % (37.0-53.0); Hemoglobin 12.2 g/dL (13.5-17.5); IMMATURE GRAN ABSOLUTE AUTO 0.04 K/mm3 (0.00-0.10); IMMATURE GRAN PERCENT AUTO 0 % (0-1); LYMPHOCYTES ABSOLUTE AUTO 0.73 K/mm3 (0.84-5.20); LYMPHOCYTES PERCENT AUTO 7 % (21-46); MONOCYTES ABSOLUTE AUTO 0.86 K/mm3 (0.16-1.47); MONOCYTES PERCENT AUTO 8 % (4-13); Mean Corpuscular HGB 27.9 pg (26.0-34.0); Mean Corpuscular HGB Conc 31.9 g/dL (31.5-36.5); Mean Corpuscular Volume 87 fL (80-100); Mean Platelet Volume 11.3 fL (9.1-12.4); NEUTROPHILS ABSOLUTE AUTO 8.87 K/mm3 (1.96-9.15); NEUTROPHILS PERCENT AUTO 82 % (41-73); Platelet Count 198 K/mm3 (150-400); RDW Coefficient Variation 14.3 % (11.7-14.2); RDW Standard Deviation 45.8 fL (35.1-46.3); Red Blood Cell Count 4.38 M/mm3 (4.30-5.90); White Blood Cell Count 10.87 K/mm3 (4.00-11.30)
[2021-06-21 06:00] LABS: Alanine Aminotransfer (ALT/SGP 19 U/L (12-78); Albumin/Globulin Ratio 0.8 (0.8-1.8); Alk Phos 87 U/L (50-136); Anion Gap 5 mmol/L (6-16); Aspartate Aminotrans (AST/SGOT 14 U/L (12-37); Bilirubin, Total 0.5 mg/dL (0.1-1.0); Blood Urea Nitrogen 19 mg/dL (8-24); Bun/Creatinine Ratio 16.5 (12.0-20.0); CO2, Blood 26 mmol/L (21-32); Calcium, Blood 8.1 mg/dL (8.5-10.1); Chloride, Blood 106 mmol/L (98-108); Creatinine, Blood 1.15 mg/dL (0.60-1.20); Glomerular Filtration Rate >60 (60-); Glucose, Blood 133 mg/dL (70-99); Potassium, Blood 3.9 mmol/L (3.5-5.5); Sodium, Blood 137 mmol/L (136-145)
--- NOTE | 2021-06-21 07:28 | NUR ---
SHIFT SUMMARY: PT HAS BEEN NPO SINCE MIDNIGHT FOR POSSIBLE SURGERY TODAY. IVFR INFUSING PER EMAR. PT MEDICATED FOR PAIN ONCE WITH NORCO. PT RESTING MOST OF NIGHT WITH CPAP IN PLACE. PT HAD A LARGE BM THIS MORNING. BECOMING MORE CONFUSED THIS AM. BANEGAS PATENT AND DRAINING. BEING TREATED FOR UTI. FEBRILE ONCE AT 100.6. TEMP WNL THIS MORNING.
--- NOTE | 2021-06-21 10:44 | NUR ---
PT WENT TO DAY SURGERY AT AROUND 1030. PT WAS A&O X3.
--- NOTE | 2021-06-21 10:47 | NUR ---
PT TO SDS FROM ROOM 213. REPORTS NPO SINCE MIDNIGHT. CHEM BG 120 PRIOR TO SDS. APPROX 300 CC OF CLEAR YELLOW URINE EMPTIED FROM CATH BAG. PT TREMULOUS. History, Chart, Medications and Allergies reviewed before start of procedure. Lungs clear T/O to Auscultation. GLASSES REMOVED AND PLACED IN PACU.
--- NOTE | 2021-06-21 11:09 | NUR ---
SECOND IV PLACED c TYPE AND SCREEN DRAW PER MD REQUEST. PT TOLERATED WELL.
--- NOTE | 2021-06-21 11:26 | NUR ---
Update 06/21/21: Spoke with patient's this am [facility], just wants to ensure that they will cover the stay at 100% and that it will not impact his BCBS or Medicare. Amada will come by the desk be the [facility] to grab the paperwork in green folder with her name on it. Folder given to [employer] members working at the desk.
--- NOTE | 2021-06-21 14:11 | NUR ---
06/21/21 1411 [facility] PT PRESENTED TO THE OR WITH PRE EXISTING BANEGAS CATH INTACT.
--- NOTE | 2021-06-21 16:22 | NUR ---
PT ARRIVED BACK TO ROOM FROM PACU AT AROUND 1530. A&O TO SELF. PT IS CONFUSED AND CONTINUES TO TRY TO GET OUT OF BED. DENIES PAIN. AQUACEL IN PLACE ON LEFT HIP AND IS C/D/I. BP'S STABLE. WILL CONTINUE TO MONITOR. CALL LIGHT WITHIN REACH AND BED ALARM ON. FLUIDS AND ABX STARTED.
--- NOTE | 2021-06-21 18:33 | NUR ---
SHIFT SUMMARY PT IS POD 0 FOR LEFT HIP FX. PT IS A&O TO SELF SINCE SURGERY WHICH IS DIMINISHED COMPARED TO BEFORE SURGERY BUT CONTINUES TO IMPROVE. WILL CONTINUE TO MONITOR. PT'S BP'S ARE STABLE. PT DENIES PAIN. PT HAS A PLEASANT DEMEANOR. PT IS TOLERATING FOOD AND FLUIDS WELL. PT IS CURRENTLY SITTING UP IN CHAIR WITH TAB ALARM ON, FEET ELEVATED, AND CALL LIGHT WITHIN REACH. PT WORKED WITH PHYSICAL THERAPY TODAY AND TOLERATED WELL. ORDERS ARE WEIGHT BEARING TOLERATED.
[2021-06-22 05:46] LABS: BASOPHILS ABSOLUTE AUTO 0.02 K/mm3 (0.00-0.23); BASOPHILS PERCENT AUTO 0 % (0-2); EOSINOPHILS PERCENT AUTO 0 % (0-6); Hematocrit 33.4 % (37.0-53.0); Hemoglobin 10.5 g/dL (13.5-17.5); IMMATURE GRAN ABSOLUTE AUTO 0.05 K/mm3 (0.00-0.10); IMMATURE GRAN PERCENT AUTO 0 % (0-1); LYMPHOCYTES ABSOLUTE AUTO 0.18 K/mm3 (0.84-5.20); LYMPHOCYTES PERCENT AUTO 2 % (21-46); MONOCYTES ABSOLUTE AUTO 0.11 K/mm3 (0.16-1.47); MONOCYTES PERCENT AUTO 1 % (4-13); Mean Corpuscular HGB 27.8 pg (26.0-34.0); Mean Corpuscular HGB Conc 31.4 g/dL (31.5-36.5); Mean Corpuscular Volume 88 fL (80-100); Mean Platelet Volume 11.4 fL (9.1-12.4); NEUTROPHILS ABSOLUTE AUTO 11.11 K/mm3 (1.96-9.15); NEUTROPHILS PERCENT AUTO 97 % (41-73); Platelet Count 191 K/mm3 (150-400); RDW Standard Deviation 45.1 fL (35.1-46.3); Red Blood Cell Count 3.78 M/mm3 (4.30-5.90); White Blood Cell Count 11.47 K/mm3 (4.00-11.30)
[2021-06-22 06:17] LABS: Alanine Aminotransfer (ALT/SGP 15 U/L (12-78); Albumin, Blood 2.6 g/dL (3.4-5.0); Albumin/Globulin Ratio 0.7 (0.8-1.8); Alk Phos 75 U/L (50-136); Anion Gap 7 mmol/L (6-16); Aspartate Aminotrans (AST/SGOT 19 U/L (12-37); Bilirubin, Total 0.4 mg/dL (0.1-1.0); Blood Urea Nitrogen 24 mg/dL (8-24); Bun/Creatinine Ratio 21.1 (12.0-20.0); CO2, Blood 24 mmol/L (21-32); Calcium, Blood 7.5 mg/dL (8.5-10.1); Chloride, Blood 108 mmol/L (98-108); Creatinine, Blood 1.14 mg/dL (0.60-1.20); Globulin, Blood 3.6 g/dL (2.2-4.0); Glomerular Filtration Rate >60 (60-); Glucose, Blood 138 mg/dL (70-99); Potassium, Blood 3.4 mmol/L (3.5-5.5); Sodium, Blood 139 mmol/L (136-145); Total Protein, Blood 6.2 g/dL (6.4-8.2)
--- NOTE | 2021-06-22 08:06 | NUR ---
SHIFT SUMMARY POD#1 LEFT ENEIDA HIP CONFUSED/IMPUSLIVE. DRESSING TO LEFT HIP C/D/I. PPP, DENIES N/T ALL EXTREMITIES, MOVES ALL TOES/FINGERS WELL. PT REPORTING DISCOMFORT AT TOLERABLE LEVEL T/O NIGHT. PT PULLED BANEGAS AT 1945 YESTARDAY + PULLED IV, HELD PRESSURE TO GROIN WITH SMALL CLOTS WITH X2 VOIDS POST CATHETER REMOVAL. PT RESTED WELL WITH CPAP IN PLACE THROUGH MOST OF MORNING. SBA WITH FWW TO AMBULATE IN ROOM. REPORT TO DAY SHIFT RN. CALL LIGHT + BED ALARM IN PLACE.
--- NOTE | 2021-06-22 17:35 | NUR ---
SHIFT SUMMARY PT HAS BEEN ALERT, ORIENTED X2-3. HAS BEEN PLEASANT AND COOPERATIVE WITH CARE. PT IS S/P L HIP SURGERY, WBAT. USING 1-2 ASSIST WITH GAIT BELT AND FWW TO TRANSFER. PT SAT UP IN CHAIR FOR A WHILE TODAY. FOLLOW-UP X-RAY COMPLETED TODAY WELL. PT HAS BEEN TOLERATING PO INTAKE AND VOIDING; INCONTINENT AT TIMES - ATTENS IN PLACE. PT REPORTED SOME DISCOMFORT IN LLE THIS AFTERNOON AND WAS MEDICATED WITH TYLENOL WITH GOOD AFFECT. WORKED WITH THERAPY TODAY.
--- NOTE | 2021-06-23 05:00 | NUR ---
SHIFT SUMMARY POD#2. PT RESTED WELL T/O NIGHT. AAOX4. DISCOMFORT AT TOLERABLE LEVEL T/O NIGHT. NO NAUSEA/EMESIS. DRESSING TO LEFT HIP C/D/I. UP TO BATHROOM FWW WITH SBA. NO ACUTE CHANGES OVER NIGHT. BED ALARM ON FOR SAFETY. PT CURRENTLY RESTING IN BED WITH CALL LIGHT IN REACH.
[2021-06-23 06:18] LABS: BASOPHILS ABSOLUTE AUTO 0.05 K/mm3 (0.00-0.23); BASOPHILS PERCENT AUTO 1 % (0-2); EOSINOPHILS PERCENT AUTO 3 % (0-6); Hematocrit 30.6 % (37.0-53.0); Hemoglobin 9.7 g/dL (13.5-17.5); IMMATURE GRAN ABSOLUTE AUTO 0.03 K/mm3 (0.00-0.10); IMMATURE GRAN PERCENT AUTO 0 % (0-1); LYMPHOCYTES ABSOLUTE AUTO 0.33 K/mm3 (0.84-5.20); LYMPHOCYTES PERCENT AUTO 5 % (21-46); MONOCYTES ABSOLUTE AUTO 0.56 K/mm3 (0.16-1.47); MONOCYTES PERCENT AUTO 8 % (4-13); Mean Corpuscular HGB 28.4 pg (26.0-34.0); Mean Corpuscular HGB Conc 31.7 g/dL (31.5-36.5); Mean Corpuscular Volume 90 fL (80-100); NEUTROPHILS PERCENT AUTO 84 % (41-73); Platelet Count 158 K/mm3 (150-400); RDW Coefficient Variation 14.6 % (11.7-14.2); RDW Standard Deviation 47.8 fL (35.1-46.3); Red Blood Cell Count 3.42 M/mm3 (4.30-5.90); White Blood Cell Count 7.37 K/mm3 (4.00-11.30)
[2021-06-23 06:43] LABS: Alanine Aminotransfer (ALT/SGP 16 U/L (12-78); Albumin, Blood 2.3 g/dL (3.4-5.0); Albumin/Globulin Ratio 0.6 (0.8-1.8); Alk Phos 70 U/L (50-136); Anion Gap 5 mmol/L (6-16); Aspartate Aminotrans (AST/SGOT 26 U/L (12-37); Bilirubin, Total 0.3 mg/dL (0.1-1.0); Blood Urea Nitrogen 28 mg/dL (8-24); Bun/Creatinine Ratio 24.8 (12.0-20.0); CO2, Blood 27 mmol/L (21-32); Chloride, Blood 108 mmol/L (98-108); Creatinine, Blood 1.13 mg/dL (0.60-1.20); Globulin, Blood 3.6 g/dL (2.2-4.0); Glomerular Filtration Rate >60 (60-); Glucose, Blood 139 mg/dL (70-99); Potassium, Blood 3.7 mmol/L (3.5-5.5); Sodium, Blood 140 mmol/L (136-145); Total Protein, Blood 5.9 g/dL (6.4-8.2)
--- NOTE | 2021-06-23 18:22 | NUR ---
SHIFT SUMMARY POD 4 ENEIDA HIP PT WORKING WITH THERAPY, MOVING WELL. DENIES PAIN DURING SHIFT. TOLERATING PO WELL, VOIDING WITH URINAL. PLAN IS FOR DISCHARGE WITH [facility] TOMORROW. NO IV ACCESS AT THIS TIME. PHYSICIAN AWARE.
[2021-06-24 05:06] LABS: BASOPHILS ABSOLUTE AUTO 0.05 K/mm3 (0.00-0.23); BASOPHILS PERCENT AUTO 1 % (0-2); EOSINOPHILS PERCENT AUTO 3 % (0-6); Hematocrit 29.9 % (37.0-53.0); Hemoglobin 9.5 g/dL (13.5-17.5); IMMATURE GRAN ABSOLUTE AUTO 0.05 K/mm3 (0.00-0.10); IMMATURE GRAN PERCENT AUTO 1 % (0-1); LYMPHOCYTES ABSOLUTE AUTO 0.46 K/mm3 (0.84-5.20); LYMPHOCYTES PERCENT AUTO 7 % (21-46); MONOCYTES ABSOLUTE AUTO 0.63 K/mm3 (0.16-1.47); MONOCYTES PERCENT AUTO 10 % (4-13); Mean Corpuscular HGB Conc 31.8 g/dL (31.5-36.5); Mean Corpuscular Volume 88 fL (80-100); Mean Platelet Volume 11.9 fL (9.1-12.4); NEUTROPHILS ABSOLUTE AUTO 5.05 K/mm3 (1.96-9.15); NEUTROPHILS PERCENT AUTO 78 % (41-73); Platelet Count 150 K/mm3 (150-400); RDW Coefficient Variation 14.6 % (11.7-14.2); Red Blood Cell Count 3.39 M/mm3 (4.30-5.90); White Blood Cell Count 6.44 K/mm3 (4.00-11.30)
[2021-06-24 05:40] LABS: Alanine Aminotransfer (ALT/SGP 24 U/L (12-78); Albumin, Blood 2.3 g/dL (3.4-5.0); Albumin/Globulin Ratio 0.6 (0.8-1.8); Alk Phos 68 U/L (50-136); Anion Gap 6 mmol/L (6-16); Aspartate Aminotrans (AST/SGOT 33 U/L (12-37); Bilirubin, Total 0.3 mg/dL (0.1-1.0); Blood Urea Nitrogen 24 mg/dL (8-24); CO2, Blood 27 mmol/L (21-32); Chloride, Blood 107 mmol/L (98-108); Creatinine, Blood 0.92 mg/dL (0.60-1.20); Globulin, Blood 3.6 g/dL (2.2-4.0); Glomerular Filtration Rate >60 (60-); Glucose, Blood 134 mg/dL (70-99); Potassium, Blood 3.9 mmol/L (3.5-5.5); Sodium, Blood 140 mmol/L (136-145); Total Protein, Blood 5.9 g/dL (6.4-8.2)
--- NOTE | 2021-06-24 06:13 | NUR ---
SHIFT SUMMARY POD#3 LEFT ENEIDA HIP. AAOX4. DISCOMFORT CONTROLLED WITH 1 NORCO LAST NIGHT. NO NAUSEA/EMESIS. DRESSING TO LEFT HIP C/D/I. PPP, DENIES N/T, MOVES TOES WELL. PT UP TO BATHROOM SBA WITH FWW. PT RESTED WELL T/O NIGHT WITH CPAP IN PLACE. NO ACUTE CHANGES THIS NOC SHIFT. CURRENTLY PT IS RESTING WITH BED ALARM ON + CALL LIGHT IN REACH.
--- NOTE | 2021-06-24 17:36 | NUR ---
SUMMARY DENEIS ANY PAIN, WORKED WITH PT/OT TODAY, TOLERATED FAIRLY WELL, SLEPT MOST OF THE DAY, TOLERATING DIET WELL, PLAN DC [facility] PER CARE MANAGEMENT, NO ACUTE CHANGES THIS SHIFT.
--- NOTE | 2021-06-25 04:07 | NUR ---
SHIFT SUMMARY POD3 L ENEIDA HIP, A/O X3 (PERSON, PLACE, TIME), TOLERATING PO, DENIES PAIN T/O SHIFT, VOIDING WELL. PLAN TO DC IN THE MORNING, WILL COVID SWAB AGAIN BEFORE DISCHARGE PER RECEIVING FACILITY REQUEST. NO ACUTE EVENTS THIS SHIFT. CALL LIGHT IN REACH, WILL CTM AND REPORT TO ONCOMING DAY RN.
[2021-06-25 05:09] LABS: BASOPHILS ABSOLUTE AUTO 0.05 K/mm3 (0.00-0.23); BASOPHILS PERCENT AUTO 1 % (0-2); EOSINOPHILS ABSOLUTE AUTO 0.23 K/mm3 (0.00-0.68); EOSINOPHILS PERCENT AUTO 3 % (0-6); Hematocrit 29.7 % (37.0-53.0); Hemoglobin 9.4 g/dL (13.5-17.5); IMMATURE GRAN ABSOLUTE AUTO 0.06 K/mm3 (0.00-0.10); IMMATURE GRAN PERCENT AUTO 1 % (0-1); LYMPHOCYTES ABSOLUTE AUTO 0.74 K/mm3 (0.84-5.20); LYMPHOCYTES PERCENT AUTO 11 % (21-46); MONOCYTES ABSOLUTE AUTO 0.87 K/mm3 (0.16-1.47); MONOCYTES PERCENT AUTO 12 % (4-13); Mean Corpuscular HGB 27.7 pg (26.0-34.0); Mean Corpuscular HGB Conc 31.6 g/dL (31.5-36.5); Mean Corpuscular Volume 88 fL (80-100); Mean Platelet Volume 12.1 fL (9.1-12.4); NEUTROPHILS ABSOLUTE AUTO 5.09 K/mm3 (1.96-9.15); NEUTROPHILS PERCENT AUTO 72 % (41-73); Platelet Count 173 K/mm3 (150-400); RDW Coefficient Variation 14.6 % (11.7-14.2); Red Blood Cell Count 3.39 M/mm3 (4.30-5.90); White Blood Cell Count 7.04 K/mm3 (4.00-11.30)
[2021-06-25 05:33] LABS: Alanine Aminotransfer (ALT/SGP 34 U/L (12-78); Albumin, Blood 2.3 g/dL (3.4-5.0); Albumin/Globulin Ratio 0.6 (0.8-1.8); Alk Phos 72 U/L (50-136); Anion Gap 3 mmol/L (6-16); Aspartate Aminotrans (AST/SGOT 36 U/L (12-37); Bilirubin, Total 0.4 mg/dL (0.1-1.0); Blood Urea Nitrogen 18 mg/dL (8-24); Bun/Creatinine Ratio 19.4 (12.0-20.0); CO2, Blood 28 mmol/L (21-32); Calcium, Blood 7.9 mg/dL (8.5-10.1); Chloride, Blood 106 mmol/L (98-108); Creatinine, Blood 0.93 mg/dL (0.60-1.20); Glomerular Filtration Rate >60 (60-); Glucose, Blood 108 mg/dL (70-99); Sodium, Blood 137 mmol/L (136-145); Total Protein, Blood 6.3 g/dL (6.4-8.2)
[2021-06-25 08:35] LABS: SARS-Cov-2 (COVID-19) PCR, MMC NEGATIVE (NEGATIVE)
--- NOTE | 2021-06-25 09:14 | NUR ---
DISCHARGE SUMMARY PATIENT ALERT AND ORIENTED THIS AM. TOLERATING ADA DIET AND PO FLUIDS. SLAINE LOCKED. VOIDING WELL, SOMETIMES INC IN ATTENDS. WORKED WELL WITH PHYSICAL THERAPY. IV DC'D WNL. DISCHARGE ORDERS OBTAINED FOR [facility]. CALLED REPORT TO [facility] CRISS AND INFORMED OF PATIENT STATUS AND ORDERS. PATIENT LEFT AT 0900 VIA WHEELCHAIR WITH [facility] FOR [facility].
--- NOTE | 2021-06-25 17:27 | NUR ---
UPDATE 06/25/21: RECEIVED CALL FROM CHARLY AT THE [facility] REQUESTING DOC TO DOC PHONE CALL TO BE PROVIDED BY DR. ALEJANDRA TO MILTON NELSON AT THE [facility]. PROVIDED DR. ALEJANDRA WITH MILTON'S CONTACT INFORMATION. REPORT GIVEN BY NURSE AT [facility] TO CRSIS AT THE [facility] PER REQUEST. D/C ORDERS FAXED TO CHARLY AT THE [facility]. RECEIVED PHONE CALL THAT APPROVAL NEEDED FROM THE [facility] FOR [facility] TO TRANSPORT PT. BARBY IN CARE MANAGEMENT ASSISTED AND MADE CONTACT WITH NE. PACKET DELIVERED TO TRANSPORT CREW WITH ALL INFORMATION INCLUDING D/C ORDERS. RYAN TEAM WILL CONTACT FACILITY TO SCHEDULE HOSPITAL F/U APPT. UPDATE 06/24/21: [facility] HAS ACCEPTED PT. FOR ADMISSION ON 06/25/21. REQUESTED OPERATIVE NOTES AND D/C ORDERS PRIOR TO TRANSPORT. STAT COVID TEST ORDERED AND RESULTS WILL BE FAXED. PT. SCHEDULED FOR TRANSPORT AT 9AM WITH [facility]. NURSE CARING FOR PT. AND [facility] NOTIFIED. PATIENTS ALSO NOTIFIED OF TRANSPORT TIME.
== END 2021-06-25 09:01 | DRG 522 ==
LOC: ER 10:37 → SURS 13:55
PROVIDERS: Family Medicine; Physician Assistant; ADMIT Family Medicine
PROC: 0SRS0JZ Replacement of Left Hip Joint, Femoral Surface with Synthetic Substitute, Open Approach (ICD-10-PCS; principal; 2021-06-22)
DX: S72.052A Unspecified fracture of head of left femur, initial encounter for closed fracture (principal); N39.0 Urinary tract infection, site not specified; W18.30XA Fall on same level, unspecified, initial encounter; Z20.822 Contact with and (suspected) exposure to COVID-19; I48.0 Paroxysmal atrial fibrillation; G47.33 Obstructive sleep apnea (adult) (pediatric); Z86.73 Personal history of transient ischemic attack (TIA), and cerebral infarction without residual deficits; Z91.040 Latex allergy status; B96.20 Unspecified Escherichia coli [E. coli] as the cause of diseases classified elsewhere; Z88.8 Allergy status to other drugs, medicaments and biological substances; N18.30 Chronic kidney disease, stage 3 unspecified; Z87.891 Personal history of nicotine dependence; Z79.4 Long term (current) use of insulin; I10 Essential (primary) hypertension; E87.6 Hypokalemia; R31.9 Hematuria, unspecified; E78.1 Pure hyperglyceridemia; G20 Parkinson's disease
CPT/HCPCS: 36415; 51702; 73030; 73502; 80053; 81001; 82947; 85025; 85610; 86850; 86900; 86901; 87077; 87086; 87186; 93005; 93010; 93306; 94660; 94760; 96374-59; 97110; 97116; 97161; 97166; 97530; 97535; 99285-25; A9270; C1776; J0171; J0690; J0696; J0735; J1100; J1170; J1815; J1885; J2370; J2405; J2704; J2795; J3010; J7030; J7120; U0004

== ENCOUNTER 2021-07-03 12:40 | Emergency (ER) | payer OTHER ==
[~2021-07-03] VITALS: Ht 180.3 cm; Wt 86.2 kg
[~2021-07-03 12:40] MED LIST changes: +ABILIFY MYCITE2 M2 PO; +BENZ1 PO; +ZOFRAN4 MG PO
== END 2021-07-03 14:42 | disposition home or self-care (01) ==
LOC: ER 12:40
DX: M96.842 Postprocedural seroma of a musculoskeletal structure following a musculoskeletal system procedure (principal); I11.0 Hypertensive heart disease with heart failure; I50.9 Heart failure, unspecified; E11.9 Type 2 diabetes mellitus without complications; I48.91 Unspecified atrial fibrillation; G43.909 Migraine, unspecified, not intractable, without status migrainosus; I25.10 Atherosclerotic heart disease of native coronary artery without angina pectoris; G47.33 Obstructive sleep apnea (adult) (pediatric); Z96.642 Presence of left artificial hip joint
CPT/HCPCS: 36415; 99285

== ENCOUNTER 2021-09-17 17:54 | Observation (INO) | payer OTHER ==
[~2021-09-17] VITALS: Ht 177.8 cm; Wt 81.7 kg
[2021-09-17 18:17] LABS: BASOPHILS ABSOLUTE AUTO 0.07 K/mm3 (0.00-0.23); BASOPHILS PERCENT AUTO 1 % (0-2); EOSINOPHILS PERCENT AUTO 2 % (0-6); Hematocrit 35.9 % (37.0-53.0); Hemoglobin 11.3 g/dL (13.5-17.5); IMMATURE GRAN ABSOLUTE AUTO 0.01 K/mm3 (0.00-0.10); IMMATURE GRAN PERCENT AUTO 0 % (0-1); LYMPHOCYTES PERCENT AUTO 11 % (21-46); MONOCYTES ABSOLUTE AUTO 0.69 K/mm3 (0.16-1.47); MONOCYTES PERCENT AUTO 10 % (4-13); Mean Corpuscular HGB 27.5 pg (26.0-34.0); Mean Corpuscular HGB Conc 31.5 g/dL (31.5-36.5); Mean Corpuscular Volume 87 fL (80-100); Mean Platelet Volume 11.2 fL (9.1-12.4); NEUTROPHILS ABSOLUTE AUTO 5.09 K/mm3 (1.96-9.15); NEUTROPHILS PERCENT AUTO 76 % (41-73); Platelet Count 229 K/mm3 (150-400); RDW Coefficient Variation 14.9 % (11.7-14.2); RDW Standard Deviation 47.9 fL (35.1-46.3); Red Blood Cell Count 4.11 M/mm3 (4.30-5.90); White Blood Cell Count 6.66 K/mm3 (4.00-11.30)
[2021-09-17 18:40] LABS: Ethanol (Alcohol), Blood, Med <3 mg/dL
[2021-09-17 18:41] LABS: Alanine Aminotransfer (ALT/SGP 41 U/L (12-78); Albumin/Globulin Ratio 0.7 (0.8-1.8); Alk Phos 104 U/L (50-136); Anion Gap 5 mmol/L (6-16); Aspartate Aminotrans (AST/SGOT 30 U/L (12-37); Bilirubin, Total 0.4 mg/dL (0.1-1.0); Blood Urea Nitrogen 17 mg/dL (8-24); Bun/Creatinine Ratio 16.2 (12.0-20.0); CO2, Blood 26 mmol/L (21-32); Calcium, Blood 8.4 mg/dL (8.5-10.1); Chloride, Blood 110 mmol/L (98-108); Creatinine, Blood 1.05 mg/dL (0.60-1.20); Globulin, Blood 4.2 g/dL (2.2-4.0); Glomerular Filtration Rate >60 (60-); Glucose, Blood 139 mg/dL (70-99); Potassium, Blood 4.3 mmol/L (3.5-5.5); Sodium, Blood 141 mmol/L (136-145); Total Protein, Blood 7.2 g/dL (6.4-8.2)
[2021-09-17 20:12] LABS: Source, Urine Clean Catch
[2021-09-17 20:16] LABS: Appearance, Urine Clear (Clear); Bilirubin, Urine Neg (Neg); Blood, Urine Neg (Neg); Color, Urine Yellow (P-Yellow); Glucose Qualitative, Urine Neg (Neg); Ketones, Urine 1+ (Neg); Leukocyte Esterase, Urine 2+ (Neg); Nitrite, Urine Neg (Neg); Protein, Urine 2+ (Neg); Specific Gravity, Urine 1.025 (1.003-1.022); Urobilinogen, Urine 1+ (Normal)
[2021-09-17 20:29] LABS: U Amphetamine Screen Not Detected; U Barbituate Screen Not Detected; U Benzodiazapine Screen Not Detected; U Buprenorphine Screen Not Detected; U Cannabinoids Screen Not Detected; U Cocaine Screen Not Detected; U Methadone Screen Not Detected; U Methamphetamine Screen Not Detected; U Opiates Screen Not Detected; U Oxycodone Screen Not Detected; U Phencyclidine Screen Not Detected; U Propoxyphene Screen Not Detected
[2021-09-17 20:33] LABS: Bacteria Mod /hpf; Mucus Light (0-Heavy); Red Blood Cells, Urine Not Seen /hpf (0-2); Squamous Epithelial Cells Few /hpf (Few); White Blood Cells, Urine 25-50 /hpf (0-5)
[2021-09-17] MEDS ORDERED: GABA100 PO (22:38)
[2021-09-17] MEDS ORDERED: ELIQUIS5 M3 PO (22:39)
[2021-09-17] MEDS ORDERED: ATORVASTATIN CA20 MG (22:40)
[2021-09-17] MEDS ORDERED: FINA5 PO (22:40)
[2021-09-17 22:42] LABS: Influenza A, PCR NEGATIVE (NEGATIVE); Influenza B, PCR NEGATIVE (NEGATIVE); Resp Syncytial Virus, PCR NEGATIVE (NEGATIVE); SARS-Cov-2 (COVID-19) PCR, MMC NEGATIVE (NEGATIVE)
[2021-09-17 22:48] LABS: CHOL/HDL RATIO 2.6; Cholesterol 128 mg/dL (50-200); HDL Cholesterol 49 mg/dL (>39); LDL/HDL RATIO 1.3; Low Density Lipoprotein Chol 66 mg/dL (0-110); Triglycerides 67 mg/dL (30-160); Very Low Density Lipoprot Chol 13 mg/dL (6-32)
[2021-09-17 22:49] LABS: Thyroid Stimulating Hormone 0.426 uIU/mL (0.360-4.800)
[2021-09-18 06:47] LABS: BASOPHILS ABSOLUTE AUTO 0.09 K/mm3 (0.00-0.23); BASOPHILS PERCENT AUTO 1 % (0-2); EOSINOPHILS PERCENT AUTO 3 % (0-6); Hematocrit 33.6 % (37.0-53.0); Hemoglobin 10.6 g/dL (13.5-17.5); IMMATURE GRAN ABSOLUTE AUTO 0.02 K/mm3 (0.00-0.10); IMMATURE GRAN PERCENT AUTO 0 % (0-1); LYMPHOCYTES PERCENT AUTO 14 % (21-46); MONOCYTES PERCENT AUTO 12 % (4-13); Mean Corpuscular HGB 27.4 pg (26.0-34.0); Mean Corpuscular HGB Conc 31.5 g/dL (31.5-36.5); Mean Corpuscular Volume 87 fL (80-100); Mean Platelet Volume 11.5 fL (9.1-12.4); NEUTROPHILS ABSOLUTE AUTO 4.54 K/mm3 (1.96-9.15); NEUTROPHILS PERCENT AUTO 69 % (41-73); Platelet Count 188 K/mm3 (150-400); RDW Coefficient Variation 15.1 % (11.7-14.2); RDW Standard Deviation 48.1 fL (35.1-46.3); Red Blood Cell Count 3.87 M/mm3 (4.30-5.90); White Blood Cell Count 6.55 K/mm3 (4.00-11.30)
[2021-09-18 07:00] LABS: Anion Gap 6 mmol/L (6-16); Blood Urea Nitrogen 13 mg/dL (8-24); Bun/Creatinine Ratio 14.3 (12.0-20.0); CO2, Blood 25 mmol/L (21-32); Calcium, Blood 7.9 mg/dL (8.5-10.1); Chloride, Blood 110 mmol/L (98-108); Creatinine, Blood 0.91 mg/dL (0.60-1.20); Glomerular Filtration Rate >60 (60-); Glucose, Blood 96 mg/dL (70-99); Sodium, Blood 141 mmol/L (136-145)
[2021-09-18] MEDS ORDERED: FERSU300 PO (12:42)
[2021-09-18] MEDS ORDERED: MELATONIN2.5 MG PO (12:43)
--- NOTE | 2021-09-18 14:32 | NUR ---
Initial Assessment with [facility] 1. Who did you speak with? Spoke with patient 2. What is the patient's prior level of functions? Independent 3. What is the patient's current living situation? Patient lives with his spouse. Patient has a safe and stable home with running water, heat electricity, and sewage/one story dwelling. No barriers at this time. 4. Is the patient and/or family able to provide transportation to and from doctor's appointments and supervisor opening and picking prescriptions? Yes, still drives and provides transportation needs. 5. Does patient still drive? No 6. POA/PCP/NOK: PCP-Dr. Danyel Portillo/NOK Spouse Amada Chakraborty 7. Discharge goals: -Convalescent location TBD -DME: patient has a walker in good repair -Medication Management Self-management with assistance from spouse -Preferred Pharmacy: [facility] -Housekeeping need: No -Able to cook for self: yes 8. List barriers to discharge -SNF Placement: No -Memory Care: No -Transportation needs: No -Financial concerns: No -Drug/Alcohol treatment: No -Home Health: No -Hospice: No 9. Discharge Plan: TBD 10. PCP Follow up appointment: Will be scheduled within seven calendar days of discharge.
--- NOTE | 2021-09-18 16:21 | NUR ---
SHIFT SUMMARY PATIENT IS ALERT AND ORIENTED X3, UNSURE OF WHAT YEAR IT IS. PATIENT IS PLEASANT AND COOPERATIVE WITH CARE. PATIENT WORKED WITH PHYSICAL THERAPY TODAY. SPEECH THERAPY WIILL BE BACK TOMORROW WHEN THE PATIENT IS MORE UP TO AN EVALUATION. THE PATIENT USES A CPAP WHILE SLEEPING. PATIENT IS CONTINENT WILL USE URINAL WITH STAFF ASSIST. PATIENT HAS MULTIPLE SKIN TEARS, DRY FRAGILE SKIN THROUGHOUT. MEPILEX IN PLACE. CALL LIGHT WITHIN REACH, BED ALARM ON. BED IN LOWEST POSITON. THIS NURSE WILL CONTINUE TO CARE FOR THE PATIENT UNTIL SHIFT REPORT IS GIVEN TO ONCOMING NURSE.
[2021-09-18] MEDS ORDERED: ABILIFY MYCITE2 M2 PO (23:44)
[2021-09-18] MEDS ORDERED: INSULANI SC (23:58)
[2021-09-18] MEDS ORDERED: HUMALOG KW100 UNIT/1 SC (23:59)
[2021-09-19] MEDS ORDERED: XARELTO20 MG PO (00:01)
--- NOTE | 2021-09-19 04:25 | NUR ---
PT IS A&oX3. HR HAS FLUCTUATED BETWEEN LOW 100'S UP TO 150. PT IS CURRENTLY IN AFIB. TELEMETRY IN PLACE. PT HAS LT FA PIV. PTS GAIT IS UNSTEADY STANDBY ASSIST OF 1.
[2021-09-19 05:57] LABS: BASOPHILS ABSOLUTE AUTO 0.07 K/mm3 (0.00-0.23); BASOPHILS PERCENT AUTO 1 % (0-2); EOSINOPHILS ABSOLUTE AUTO 0.19 K/mm3 (0.00-0.68); EOSINOPHILS PERCENT AUTO 3 % (0-6); Hemoglobin 11.9 g/dL (13.5-17.5); IMMATURE GRAN ABSOLUTE AUTO 0.02 K/mm3 (0.00-0.10); IMMATURE GRAN PERCENT AUTO 0 % (0-1); LYMPHOCYTES ABSOLUTE AUTO 0.96 K/mm3 (0.84-5.20); LYMPHOCYTES PERCENT AUTO 12 % (21-46); MONOCYTES ABSOLUTE AUTO 0.81 K/mm3 (0.16-1.47); MONOCYTES PERCENT AUTO 11 % (4-13); Mean Corpuscular HGB 27.7 pg (26.0-34.0); Mean Corpuscular HGB Conc 31.3 g/dL (31.5-36.5); Mean Corpuscular Volume 88 fL (80-100); Mean Platelet Volume 11.6 fL (9.1-12.4); NEUTROPHILS ABSOLUTE AUTO 5.67 K/mm3 (1.96-9.15); NEUTROPHILS PERCENT AUTO 73 % (41-73); Platelet Count 236 K/mm3 (150-400); RDW Standard Deviation 48.2 fL (35.1-46.3); White Blood Cell Count 7.72 K/mm3 (4.00-11.30)
--- NOTE | 2021-09-19 06:43 | NUR ---
Patient has been maintaining a HR in the 120's to 130's. Dr Voss was called and initially gave an order for Iv hydralazine. The patients HR then increased to the 140's-1960's and that order was cance;;ed and we wrw told to call the [facility].
[2021-09-19 06:47] LABS: Alanine Aminotransfer (ALT/SGP 30 U/L (12-78); Albumin, Blood 2.8 g/dL (3.4-5.0); Albumin/Globulin Ratio 0.8 (0.8-1.8); Alk Phos 102 U/L (50-136); Anion Gap 8 mmol/L (6-16); Aspartate Aminotrans (AST/SGOT 17 U/L (12-37); Bilirubin, Total 0.4 mg/dL (0.1-1.0); Blood Urea Nitrogen 12 mg/dL (8-24); Bun/Creatinine Ratio 11.9 (12.0-20.0); CO2, Blood 26 mmol/L (21-32); Calcium, Blood 8.4 mg/dL (8.5-10.1); Chloride, Blood 106 mmol/L (98-108); Creatinine, Blood 1.01 mg/dL (0.60-1.20); Globulin, Blood 3.7 g/dL (2.2-4.0); Glomerular Filtration Rate >60 (60-); Glucose, Blood 106 mg/dL (70-99); Sodium, Blood 140 mmol/L (136-145); Total Protein, Blood 6.5 g/dL (6.4-8.2)
--- NOTE | 2021-09-19 11:38 | NUR ---
ASSUMED CARE AND COMFORT OF THIS PATIENT AT 0700 TODAY. ANOOPTENT IS AO X 4. HE HAS PLEASANT AFFECT AND APPEARS COOPERATIVE WITH CARE. PER REPORT HE IS A STAND BY ASSIST TO THE BATHROOM. PATIENT HAS EPISODES OF AFIB RVR NOTED AND IS PROVIDED WITH METOPROLOL IV AND THEN PO WITH [employer]. COMES TO SEE JOSÉ AND REQUESTS SPOUSE COME SEE ISACCT AND "LAY EYES ON HIM" TO SEE IF SHE FEELS SHE CAN TAKE HIM HOME. SPOUSE ARRIVES TO UNIT AT 1135. AFTER WATCHING PATIENT GO TO THE BATHROOM USING FWW TO AMBULATE TO AND FROM SHE SAYS THAT SHE FEELS HE CAN GO HOME WITH HER. IS NOTIFIED AND SHE WILL COME SEE THIS PATIENT AND SPOUSE AND THEN WRITE DC ORDERS TO HOME. PER SHE SAYS THAT [facility] SUPERVIS[facility] HAVE ALL READY ARRANGED FOR [facility] TO SEE JOSÉ NEXT WEEK. FARRAH ORTIZ RN
[2021-09-19] MEDS ORDERED: AMOX875 PO (12:34)
== END 2021-09-19 13:50 | disposition home health service (06) ==
LOC: ER 17:54 → MEDS 17:55 → ERHOLD 17:55 → MEDS 09-18 09:28
PROVIDERS: Family Medicine; Physician Assistant; ADMIT Family Medicine
DX: R27.0 Ataxia, unspecified (principal); N39.0 Urinary tract infection, site not specified; R41.82 Altered mental status, unspecified; G20 Parkinson's disease; I13.0 Hypertensive heart and chronic kidney disease with heart failure and stage 1 through stage 4 chronic kidney disease, or unspecified chronic kidney disease; I50.9 Heart failure, unspecified; N18.30 Chronic kidney disease, stage 3 unspecified; E11.22 Type 2 diabetes mellitus with diabetic chronic kidney disease; I48.0 Paroxysmal atrial fibrillation; G47.33 Obstructive sleep apnea (adult) (pediatric); Z86.73 Personal history of transient ischemic attack (TIA), and cerebral infarction without residual deficits; Z87.891 Personal history of nicotine dependence; Z79.4 Long term (current) use of insulin; Z79.01 Long term (current) use of anticoagulants; Z20.822 Contact with and (suspected) exposure to COVID-19
CPT/HCPCS: 0241U; 36415; 51798; 70450; 70551; 80048; 80053; 80061; 81001; 82947; 84443; 85025; 87086; 92523; 93005; 93010; 93880; 96365; 96375; 97116; 97162; 97166; 97535; 99285-25; A9270; G0480; J0696